=== PATIENT | female | born 1980 | race Caucasian/White ===

== ENCOUNTER 2022-07-23 17:52 | Emergency (ER) | payer OTHER, SELFPAY ==
[2022-07-23 18:01] VITALS: BP 138/89; PULSE 111; RESP 18; TEMP 37.7; O2SAT 96; BMI 21.9
--- NOTE | 2022-07-23 18:14 | CRLHL7_ITS ---
For Patients: As a result of the Century Cures Act, medical imaging exams and procedure reports are released immediately into your electronic medical record. You may view this report before your referring provider. If you have questions, please contact your health care provider. Indication: Abdominal pain, rule out diverticulitis Technique: Volumetric multidetector CT images of the abdomen and pelvis were obtained after the administration of intravenous contrast. 69 cc Isovue 370 low osmolar intravenous contrast Comparison: None available. Findings: The lung bases are clear. The liver is moderately enlarged with minimal hepatic steatosis. There is no focal abnormality. The portal vein is patent. The gallbladder is unremarkable without evidence of radiopaque calculus. There is no significant common biliary ductal dilatation or abrupt cut off. There is moderate splenomegaly. There is mild chronic gastritis change within the decompressed appearing stomach. The pancreas is normal in enhancement without significant atrophy. The adrenal glands are unremarkable. The kidneys demonstrate preserved corticomedullary differentiation without evidence of obstructive uropathy. There is marked focal thickening and pericolonic inflammation of the mid descending: Extending from the splenic flexure. There is additional moderate colonic diverticulosis of the sigmoid colon without additional inflammatory changes. The appendix is not well visualized. There is no significant mesenteric, retroperitoneal, or pelvic sidewall lymph nodes. The aorta is nonaneurysmal. There is no significant atherosclerotic disease appreciated. The solid pelvic viscera are grossly unremarkable. There is moderate fluid seen within the central cul-de-sac and likely an involuting left ovarian follicle. There is no intra-abdominal free air. The anterior abdominal wall is intact without significant hernias. The lumbar vertebral body heights are grossly maintained with mild straightening of the normal lumbar lordosis. There is no significant spondylolisthesis. Impression: Marked focal thickening and pericolonic inflammation of the proximal descending colon extending from the splenic flexure to the mid descending colon consistent with diverticulitis/colitis changes. Moderate hepatosplenomegaly and hepatic steatosis. [id number] chronic gastritis changes. No other acute intra-abdominal abnormality is appreciated. Please note that all CT scans at this facility use dose modulation, iterative reconstruction, and/or weight-based dosing when appropriate to reduce radiation dose to as low as reasonably achievable. Dictated by Terrence Beltran MD @ 07/23/2022 7:09:03 PM (Electronically Signed)
--- NOTE | 2022-07-23 18:17 | ED_ITS ---
HPI - General Adult General Time Seen by Provider: 18:17 Date Seen: 07/23/22 Chief complaint: Abdominal Pain Stated complaint: Abdominal Pain Time Seen by Provider: 07/23/22 18:01 Source: patient Mode of arrival: ambulatory Limitations: no limitations History of Present Illness HPI narrative: Patient is a 42-year-old female who has had a history of diverticulitis, she has had some lower abdominal discomfort on and off for the last 4 days, had a pretty good day yesterday then today had worsening discomfort across her periumbilical and lower abdominal region left greater than right. She denies , had a vasectomy, she has had no diarrhea, no vomiting, no chest pain, no shortness of breath; the patient states that this is fairly similar to the d iverticulitis episode she has had the past. But it has lasted longer and she feels a little fevers today Past medical history: Patient has had ganglion dome of the neck, hypertension, hyperlipidemia, hypothyroidism, migraine headaches. Related Data Home Medications Medication Instructions Recorded Confirmed amlodipine 5 mg tablet mg 07/23/22 levothyroxine 100 mcg tablet mcg 07/23/22 rizatriptan 10 mg disintegrating mg 07/23/22 tablet sertraline 100 mg tablet mg 07/23/22 topiramate 100 mg tablet mg 07/23/22 ubrogepant 100 mg tablet (Ubrelvy) mg 07/23/22 Previous Rx's Medication Instructions Recorded amoxicillin 875 mg-potassium 1 tab PO BID #14 tabs 07/23/22 clavulanate 125 mg tablet Allergies Allergy/AdvReac Type Severity Reaction Status Date / Time meperidine [From Demerol] Allergy Verified 07/23/22 18:01 Review of Systems Status of ROS: Reports: 6 or more systems reviewed and unremarkable except as noted in History and below PFSH PFS Social History Smoking Status: Never smoker How often do you have a drink containing alcohol: monthly or less How often do you have six or more drinks on one occasion: Never AUDIT-C Alcohol total score: 1 Non-prescribed substance use: denies use Exam Narrative: Exam Narrative: Objective: Low-grade temperature O2 sat 96% on room air HEENT is unremarkable no facial asymmetry no scleral icterus Neck is supple Pulses regular Abdomen shows some diffuse tenderness in the periumbilical right and left lower quadrant left greater than right no palpable masses, no rebound Extremities moving all extremities ambulatory Const: Vital Signs, click to edit/add: Vital Signs - 24 hr 07/23/22 18:01 07/23/22 18:45 07/23/22 19:28 Temperature 99.9 F H Pulse Rate [Right Pulse Oximeter] 111 H 108 H 98 Respiratory Rate 18 Blood Pressure [Ri ght Upper Arm] 138/89 155/93 H Pulse Oximetry 96 100 100 Oxygen Delivery Me thod Room Air Room Air Room Air 07/23/22 19:55 Temperature Pulse Rate [Right Pulse Oximeter] 99 Respiratory Rate Blood Pressure [Ri ght Upper Arm] Pulse Oximetry 100 Oxygen Delivery Me thod Room Air Course Vital Signs Vital signs: Initial Vital Signs Temperature 99.9 F H 07/23/22 18:01 Temperature Source Temporal Artery Scan 07/23/22 18:01 Pulse Rate 111 H 07/23/22 18:01 Respiratory Rate 18 07/23/22 18:01 Blood Pressure 138/89 07/23/22 18:01 Blood Pressure Mean 105 07/23/22 18:01 Blood Pressure Position Sitting 07/23/22 18:01 Pulse Oximetry 96 07/23/22 18:01 Oxygen Delivery Method 07/23/22 18:01 Vital Signs Temperature 99.9 F H 07/23/22 18:01 Pulse Rate 111 H 07/23/22 18:01 Respiratory Rate 18 07/23/22 18:01 Blood Pressure 138/89 07/23/22 18:01 Pulse Oximetry 96 07/23/22 18:01 Oxygen Delivery Method 07/23/22 18:01 Temperature 99.9 F H 07/23/22 18:01 Pulse Rate 99 07/23/22 19:55 Respiratory Rate 18 07/23/22 18:01 Blood Pressure 155/93 H 07/23/22 18:45 Pulse Oximetry 100 07/23/22 19:55 Oxygen Delivery Method 07/23/22 19:55 Medical Decision Making MDM Narrative Medical decision making narrative: Patient has a history of diverticulitis, has similar presentation, at this point she is concerned that she may have something worse or that the diverticula radiculitis may not responded simply oral medication, and requests additional workup. I think that is reasonable will get a CT with contrast of her abdomen pelvis, laboratory studies, give her IV fluid, antibiotics depending on her CT results, pain control as necessary. Will do the above-mentioned workup and then depending on those results antibiotics, pain medicine as needed as mention. Patient comfortable with the plan Addendum: [place] [address], she does not really have much pain, can not take narcotics as she gets significant rebound headache. She does have no evidence of perforation but does have extensive diverticulitis on her descending colon. This is what she suspected. Will give her IV Unasyn, have her start Augmentin 875 b.i.d. x7 days, ibuprofen and Tylenol as needed. If she fails or isn't doing well at home she can return to the ED otherwise update her regular doctor next few days for follow-up. Lab Data Labs: Lab Results 07/23/22 07/23/22 07/23/22 Range/Units 18:48 19:04 19:04 WBC 15.07 H (4.50-11.00) K/uL RBC 4.11 (4.00-5.20) m/uL Hgb 10.7 L (12.0-16.0) gm/dL Hct 33.1 (33.0-51.0) % MCV 81 (80-100) fL MCH 26 (26-34) pg MCHC 32 (32-36) gm/dL RDW Coeff of Yao 14.9 (11.5-15.5) % Plt Count 271 (140-440) K/uL Neut % (Auto) 88.8 H (42.0-72.0) % Lymph % (Auto) 6.2 L (20-44) % [place] % (Auto) 4.1 (0.0-11.0) % Eos % (Auto) 0.5 (0.0-7.0) % Baso % (Auto) 0.2 (0.0-3.0) % Neut # (Auto) 13.40 H (1.7-7.0) K/uL Lymph # (Auto) 0.90 (0.90-2.90) K/uL [place] # (Auto) 0.60 (0.00-0.90) K/UL Eos # (Auto) 0.10 (0.00-0.50) K/uL Baso # (Auto) 0.00 (0.00-0.30) K/uL Abs Immat Gran (auto) 0.00 (0.00-0.30) K/uL Imm/Tot Granulo (auto) 0.2 % Sodium 136 (135-149) mmol/L Potassium 3.7 (3.6-5.1) mmol/L Chloride 107 (96-114) mmol/L Carbon Dioxide 19 L (20-32) mmol/L BUN 12 (5-24) mg/dL Creatinine 0.8 (0.5-1.5) mg/dL Estimated Creat Clear 90.90 Estimated GFR 95 ml/min Glucose 109 (60-115) mg/dL Lactate (0.5-1.9) mmol/L Calcium 8.8 (8.4-10.6) mg/dL Total Bilirubin 0.8 (0.1-1.5) mg/dL Direct Bilirubin 0.1 (0.0-0.5) mg/dL AST 14 (12-35) U/L ALT 11 (4-35) U/L Alkaline Phosphatase 47 (40-150) U/L C-Reactive Protein 6.9 H (0.5-1.0) mg/dL Total Protein 7.3 (6.0-8.3) g/dL Albumin 4.3 (3.3-5.0) g/dL Amylase 67 (18-89) U/L Urine Color Yellow (Yellow) Urine Appearance Clear (Clear) Urine pH 7.0 (5.0-8.5) Ur Specific [place] 1.020 (1.000-1.030) Urine Protein 1+ A (Negative) Urine Glucose (UA) Negative (Negative) Urine Ketones 2+ A (Negative) Urine Blood Negative (Negative) Urine Nitrite Negative (Negative) Urine Bilirubin Negative (Negative) Urine Urobilinogen 0.2 (0.2-1.0) Ur Leukocyte Esterase Negative (Negative) Urine RBC 2-5 A (0-2) Urine WBC 2-5 (0-5) Ur Squamous Epith Cells Few (None-Few) Urine Bacteria Few A (None) 07/23/22 Range/Units 19:04 WBC (4.50-11.00) K/uL RBC (4.00-5.20) m/uL Hgb (12.0-16.0) gm/dL Hct (33.0-51.0) % MCV (80-100) fL MCH (26-34) pg MCHC (32-36) gm/dL RDW Coeff of Yao (11.5-15.5) % Plt Count (140-440) K/uL Neut % (Auto) (42.0-72.0) % Lymph % (Auto) (20-44) % [place] % (Auto) (0.0-11.0) % Eos % (Auto) (0.0-7.0) % Baso % (Auto) (0.0-3.0) % Neut # (Auto) (1.7-7.0) K/uL Lymph # (Auto) (0.90-2.90) K/uL [place] # (Auto) (0.00-0.90) K/UL Eos # (Auto) (0.00-0.50) K/uL Baso # (Auto) (0.00-0.30) K/uL Abs Immat Gran (auto) (0.00-0.30) K/uL Imm/Tot Granulo (auto) % Sodium (135-149) mmol/L Potassium (3.6-5.1) mmol/L Chloride (96-114) mmol/L Carbon Dioxide (20-32) mmol/L BUN (5-24) mg/dL Creatinine (0.5-1.5) mg/dL Estimated Creat Clear Estimated GFR ml/min Glucose (60-115) mg/dL Lactate 1.0 (0.5-1.9) mmol/L Calcium (8.4-10.6) mg/dL Total Bilirubin (0.1-1.5) mg/dL Direct Bilirubin (0.0-0.5) mg/dL AST (12-35) U/L ALT (4-35) U/L Alkaline Phosphatase (40-150) U/L C-Reactive Protein (0.5-1.0) mg/dL Total Protein (6.0-8.3) g/dL Albumin (3.3-5.0) g/dL Amylase (18-89) U/L Urine Color (Yellow) Urine Appearance (Clear) Urine pH (5.0-8.5) Ur Specific [place] (1.000-1.030) Urine Protein (Negative) Urine Glucose (UA) (Negative) Urine Ketones (Negative) Urine Blood (Negative) Urine Nitrite (Negative) Urine Bilirubin (Negative) Urine Urobilinogen (0.2-1.0) Ur Leukocyte Esterase (Negative) Urine RBC (0-2) Urine WBC (0-5) Ur Squamous Epith Cells (None-Few) Urine Bacteria (None) Discharge Plan Discharge Clinical Impression: Abdominal pain, Diverticulitis Patient Disposition: Home, Self-Care Condition: Stable Additional Instructions: Rest, fluids, light diet, Augmentin 875 b.i.d. x7 days, ibuprofen or Tylenol as needed, follow-up with primary care in the next couple of days for an update, or return to ED sooner problems or concerns or not improving. Activity Level: Light activity Discharge Diet: Full Liquid Diet Detail: Advance diet as tolerated starting tomorrow Prescriptions: New amoxicillin-pot clavulanate 875-125 mg tablet 1 tab PO BID Qty: 14 0RF No Action sertraline 100 mg tablet Label Comments: TAKE 1 & 1/2 TABLETS BY MOUTH DAILY amlodipine 5 mg tablet Label Comments: TAKE 1 TABLET BY MOUTH EVERY DAY levothyroxine 100 mcg tablet Label Comments: TAKE 1 TABLET BY MOUTH AT LEAST 1 HOUR BEFORE OR 2 HOURS AFTER A MEAL rizatriptan 10 mg tablet,disintegrating Label Comments: TAKE 1 TABLET NEEDED FOR MIGRAINE, REPEAT ONCE IN 2 HRS IF UNRESOLVED. DONT EXCEED 30MG/24HRS topiramate 100 mg tablet Label Comments: TAKE 1 TABLET BY MOUTH EVERY 12 HOURS Ubrelvy 100 mg tablet Stand Alone Forms: MyHealth Info Instructions
[2022-07-23 18:45] VITALS: BP 155/93; PULSE 108; O2SAT 100
[2022-07-23] MEDS: 0.9 % SODIUM CHLORIDE 500 ML 500 ML IV (18:53)
[2022-07-23 19:07] LABS: Appearance Urine Clear (Clear); Bilirubin Urine Negative (Negative); Blood Urine Negative (Negative); Color Urine Yellow (Yellow); Glucose Urine Negative (Negative); Ketones Urine 2+ (Negative); Leukocyte Esterase Urine Negative (Negative); Nitrite Urine Negative (Negative); Protein Urine 1+ (Negative); Urobilinogen Urine 0.2 (0.2-1.0)
[2022-07-23 19:09] LABS: Basophils Percent Auto 0.2 % (0.0-3.0); Eosinophils Percent Auto 0.5 % (0.0-7.0); Hematocrit 33.1 % (33.0-51.0); Hemoglobin* 10.7 gm/dL (12.0-16.0); Immature Granulocytes Pct Auto 0.2 %; Lymphocytes Percent Auto 6.2 % (20-44); Mean Corpuscular HGB Conc 32 gm/dL (32-36); Mean Corpuscular Hemoglobin 26 pg (26-34); Mean Corpuscular Volume 81 fL (80-100); Monocytes Percent Auto 4.1 % (0.0-11.0); Neutrophils Percent Auto 88.8 % (42.0-72.0); Platelet Count* 271 K/uL (140-440); RDW Coefficient of Variation % 14.9 % (11.5-15.5); Red Blood Count 4.11 m/uL (4.00-5.20); White Blood Count* 15.07 K/uL (4.50-11.00)
[2022-07-23 19:13] LABS: Slide Review Reflex No
[2022-07-23] MEDS: AMPICILLIN/SULBACTAM 3 GM in 0.9 % SODIUM CHLORIDE Mini-bag 100 ML IVPB (19:19)
[2022-07-23 19:21] LABS: Bacteria Urine Few; Squamous Epithelial Cell Urine Few (None-Few)
[2022-07-23] MEDS: IBUPROFEN 400 MG TABLET 800 MG PO (19:22)
[2022-07-23 19:28] VITALS: PULSE 98; O2SAT 100
[2022-07-23 19:48] LABS: Albumin* 4.3 g/dL (3.3-5.0); Chloride* 107 mmol/L (96-114)
[2022-07-23 19:49] LABS: Potassium* 3.7 mmol/L (3.6-5.1); Sodium* 136 mmol/L (135-149)
[2022-07-23 19:51] LABS: Amylase* 67 U/L (18-89); Creatinine* 0.8 mg/dL (0.5-1.5); Estimated Glomerular Filt Rate 95 ml/min
[2022-07-23 19:52] LABS: Alanine Aminotransferase* 11 U/L (4-35); Alkaline Phosphatase* 47 U/L (40-150); Aspartate Amino Transferase* 14 U/L (12-35); Bilirubin Direct* 0.1 mg/dL (0.0-0.5); Bilirubin Total* 0.8 mg/dL (0.1-1.5); Blood Urea Nitrogen* 12 mg/dL (5-24); Calcium* 8.8 mg/dL (8.4-10.6); Carbon Dioxide* 19 mmol/L (20-32); Glucose* 109 mg/dL (60-115); Total Protein* 7.3 g/dL (6.0-8.3)
[2022-07-23 19:54] LABS: C Reactive Protein* 6.9 mg/dL (0.5-1.0)
[2022-07-23 19:55] VITALS: PULSE 99; O2SAT 100
== END 2022-07-23 19:56 | disposition home or self-care (01) ==
PROVIDERS: Emergency Provider Family Medicine
DX: R10.9 Unspecified abdominal pain (principal); K57.92 Diverticulitis of intestine, part unspecified, without perforation or abscess without bleeding
CPT/HCPCS: 36415; 74177; 80048; 80076; 81001; 82150; 83605; 85025; 86140; 87086; 96365; 99284; A9270; J0295; J7120; Q9967

== ENCOUNTER 2022-08-15 12:14 | Outpatient (REF) | payer OTHER, SELFPAY | END 2022-08-15 12:15 | disposition home or self-care (01) | LOC: NPINS 12:14 | DX: E03.9 Hypothyroidism, unspecified (principal) | CPT/HCPCS: 84443 ==

== ENCOUNTER 2022-11-26 08:30 | Outpatient (CLI) | payer OTHER, SELFPAY | END 2022-11-26 08:31 | disposition home or self-care (01) | LOC: NFLDREF 11-27 09:14 | PROVIDERS: Visit Provider Family Medicine | DX: E03.9 Hypothyroidism, unspecified (principal); E78.5 Hyperlipidemia, unspecified; D50.9 Iron deficiency anemia, unspecified; I10 Essential (primary) hypertension | CPT/HCPCS: 80053; 80061; 82728; 84443 ==

== ENCOUNTER 2023-01-29 09:15 | Outpatient (CLI) | payer OTHER, SELFPAY | END 2023-01-29 09:16 | disposition home or self-care (01) | LOC: NFLDREF 01-30 00:48 | PROVIDERS: PCP Family Medicine; Visit Provider Family Medicine | DX: D50.9 Iron deficiency anemia, unspecified (principal) | CPT/HCPCS: 82728; 83540; 83550 ==

== ENCOUNTER 2023-02-21 13:24 | Outpatient (CLI) | payer OTHER, SELFPAY ==
--- NOTE | 2023-02-21 13:20 | CRLHL7_ITS ---
For Patients: As a result of the Century Cures Act, medical imaging exams and procedure reports are released immediately into your electronic medical record. You may view this report before your referring provider. If you have questions, please contact your health care provider. BILATERAL SCREENING MAMMOGRAM WITH COMPUTER-AIDED DETECTION AND TOMOSYNTHESIS TECHNIQUE: CC and MLO views were obtained. These mammographic images have been obtained using full-field digital technique. These mammographic images were interpreted with the benefit of computer-aided detection. Breast Tomosynthesis was used in this interpretation. COMPARISON FILM: Baseline. FINDINGS: The breasts are heterogeneously dense, which may obscure small masses IMPRESSION: There is no radiographic evidence for malignancy. ASSESSMENT: BI-RADS Category 1: Negative RECOMMENDATION: Routine screening mammogram in 1 year. A lay language report of this examination will be provided to the patient. Teddy Goff M.D. Diagnostic Radiologist [email or web address] Transcribed: 3:03 p.monse jama/Dictated by: Teddy Goff MD @ 02/24/2023 8:35:00 AM (Electronically Signed)
== END 2023-02-21 13:25 | disposition home or self-care (01) ==
LOC: MAMMO 13:25
PROVIDERS: PCP Family Medicine; Visit Provider Family Medicine
DX: Z12.31 Encounter for screening mammogram for malignant neoplasm of breast (principal); R92.2 Inconclusive mammogram
CPT/HCPCS: 77063; 77067

== ENCOUNTER 2023-08-07 07:15 | Outpatient (CLI) | payer OTHER, SELFPAY ==
--- NOTE | 2023-08-07 09:00 | CRLHL7_ITS ---
For Patients: As a result of the Century Cures Act, medical imaging exams and procedure reports are released immediately into your electronic medical record. You may view this report before your referring provider. If you have questions, please contact your health care provider. INDICATION: Upper quadrant pain TECHNIQUE: Axial images were obtained from the diaphragm to the pubic symphysis. Reformats were obtained in the coronal and sagittal plane. IV Contrast: 90 cc Isovue 370 Oral Contrast: None COMPARISON: None. FINDINGS: Lower chest: No acute consolidation. Bilateral breast implants. Liver: Unremarkable. Normal in size and attenuation. No masses. Gallbladder and bile ducts: Unremarkable. No stones or inflammation. No biliary dilatation. Spleen: Mild splenomegaly without focal lesion. Pancreas: Unremarkable. No mass or inflammation. Adrenal glands: Unremarkable. No nodules. Kidneys: Unremarkable. No masses, stones, or hydronephrosis. Vasculature: Unremarkable. GI tract: The stomach is unremarkable no dilated loops of large or small intestine with extensive colonic diverticulosis. Appendix normal. Pelvis: Right ovarian corpus luteum measuring 1.8 centimeters. Bones: Unremarkable for age. IMPRESSION: 1. Extensive colonic diverticulosis without CT evidence of diverticulitis. 2. Mild splenomegaly. No focal lesions seen, differential diagnosis would include viral syndromes and metabolic disorders. Please note that all CT scans at this facility use dose modulation, iterative reconstruction, and/or weight-based dosing when appropriate to reduce radiation dose to as low as reasonably achievable. Dictated by Marlon Pascual MD @ 08/07/2023 11:07:39 AM (Electronically Signed)
== END 2023-08-07 07:16 | disposition home or self-care (01) ==
PROVIDERS: PCP Family Medicine; Visit Provider Family Medicine
DX: R10.12 Left upper quadrant pain (principal); K57.30 Diverticulosis of large intestine without perforation or abscess without bleeding; R16.1 Splenomegaly, not elsewhere classified; Z87.19 Personal history of other diseases of the digestive system; D50.9 Iron deficiency anemia, unspecified
CPT/HCPCS: 74177; 80053; Q9967

== ENCOUNTER 2023-09-18 13:50 | Outpatient (REF) | payer OTHER, SELFPAY ==
--- OUTSIDE RECORDS SUMMARY | 2023-09-18 14:08 | XMS_ITS | Encounter Summary ---
Author Name Unknown [facility] Address [address] [place] [address] Care Team Providers Care Clock Repair Technician Name Role Phone No Primary/Referring, Phy Primary Care Provider Unavailable Encounter Details Date Type Department Care Team Description 03/01/2015 Scanned History External to Transferred Record, Provider [facility] Social History Tobacco Use Types Packs/Day Years Used Date Smoking Tobacco: Never Assessed Sex and Gender Information Value Date Recorded Sex Assigned at Not on file Gender Identity Not on file Sexual Orientation Not on file documented as of this encounter Plan of Treatment Upcoming Encounters Date Type Department Care Team Description 03/12/2024 8:50 AM CDT [facility] [address] [facility]. [place], [place] [phone] Gabriele Gaitan MD [address] [place] [address] documented as of this encounter Visit Diagnoses Not on filedocumented in this encounter Care Teams Clock Repair Technician Relationship Specialty Start Date End Date No Primary/Referring, Phy PCP - General 03/01/15 documented as of this encounter
--- OUTSIDE RECORDS SUMMARY | 2023-09-18 14:08 | XMS_ITS | Encounter Summary ---
Author Name Unknown Organization [facility] Address [address] [place] [address] Care Team Providers Care Pump Servicer Name Role Phone No Primary/Referring, Phy Primary Care Provider Unavailable Encounter Details Date Type Department Care Team Description 11/22/2022 Orders Only [facility] DEPARTMENT Provider, [place] [address] Social History Tobacco Use Types Packs/Day Years Used Date Smoking Tobacco: Never Smokeless Tobacco: Never Alcohol Use Standard Drinks/Week Comments Yes 0 (1 standard drink = 0.6 oz pur e alcohol) 2/week at most Sex and Gender Information Value Date Recorded Sex Assigned at Not on file Gender Identity Not on file Sexual Orientation Not on file documented as of this encounter Plan of Treatment Upcoming Encounters Date Type Department Care Team Description 03/12/2024 8:50 AM CDT [facility] [address] [facility] [address] [place] [address]. [place], [place] [phone] Gabriele Gaitan MD [address] [place] [phone] documented as of this encounter Procedures Procedure Name Priority Date/Time Associated Diagnosis Comments LABORATORY REPORT 11/22/2022 documented in this encounter Results * LABORATORY REPORT (11/22/2022) Interface Provider DUMMY/OTHER/AR documented in this encounter Visit Diagnoses Not on filedocumented in this encounter Care Teams Pump Servicer Relationship Specialty Start Date End Date No Primary/Referring, Phy PCP - General 03/01/15 documented as of this encounter
--- OUTSIDE RECORDS SUMMARY | 2023-09-18 14:08 | XMS_ITS ---
Author Name Unknown Organization [facility] Address [address] [place] [address] Care Team Providers Care Contract Driver Name Role Phone Unavailable Unavailable Unavailable Surgery Details Not on file Complications Check Surgery Details section. Procedure Estimated Blood Loss Check Surgery Details section. Procedure Findings Check Surgery Details section. Procedure Specimens Taken Check Surgery Details section.
--- OUTSIDE RECORDS SUMMARY | 2023-09-18 14:08 | XMS_ITS | Clinical Summary ---
Author Name Unknown Organization [facility] Address [address] [place] [address] Care Team Providers Care Flux Plant Operator Name Role Phone Elsewhere, Pcp Primary Care Provider Unavailabl e Source Comments Patient records contain information from all sites at [facility]. For routine questions regarding patient records, call [phone] during business hours, M-F 8:00 AM - 5:00 PM Central Time. Record requests for emergency care only can be directed to [phone] at any time.[facility] Allergies Active Allergy Reactions Criticality Noted Date Comments Meperidine Itching,Other (see comments) 015 itching Medications Medication Sig Dispensed Refills Start Date End Date Status sertraline (ZOLOFT) 100 mg tablet Take 150 mg by mouth at bedtime. 0 08/19/2018 Active amLODIPine (NORVASC) 5 mg tablet Take 5 mg by mouth at bedtime. 0 05/10/2020 Active multivitamin tablet Take 1 tablet by mouth daily. 0 Active levothyroxine (SYNTHROID, LEVOTHROID) 100 mcg tablet Take 112 mcg by mouth daily. TAKE AT LEAST 1 HOUR BEFORE OR 2 HOURS AFTER A MEAL 0 05/07/2021 Active topiramate (TOPAMAX) 100 mg tablet TAKE 1 TABLET BY MOUTH EVERY 12 HOURS 180 tablet 1 10/23/2021 Active Additional Information Patient not taking.Reported on 06/06/2023 Ubrelvy 100 mg tablet tablet TAKE 1 TAB NEEDED FOR MIGRAINE. MAY REPEAT ONCE AFTER 2HR IF UNRESOLVED-DONT EXCEEDED 200MG/24 HR 10 tablet 11 10/08/2022 Active propranoloL (INDERAL LA) 60 mg 24 hr capsuleIndications:M igraine Headache Take 1 capsule (60 mg total) by mouth daily. 30 capsule 11 04/25/2023 4 Active buPROPion XL (WELLBUTRIN XL) 150 mg 24 hr tablet Take 150 mg by mouth daily. 0 03/12/2023 Active rizatriptan HEARING THERAPIST (MAXALT-HEARING THERAPIST) 10 mg disintegrating tablet Dissolve 1 tablet (10 mg total) in the mouth as needed for migraine. May repeat dose once in 2 hours if migraine is unresolved. Do not exceed 30 mg in 24 hours. 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 Takes sertraline. 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 Echo in 06/2016 Immunizations Name Administration Dates Next Due SARS-COV-2 (COVID-19) - PFIZ ER (Discontinued)(12 years or older) 07/10/2021 influenza vaccine quad (FLUZ ONE/FLUARIX) (6 months and older)(PF) 07/10/2021,08/01/2020 Family History Medical History Relation Name Comments Sleep apnea Brother 1 Naseem Lul Migraines Brother 2 Avinash Lul Alcohol abuse Father Gage Mccarty Coronary artery disease Father Gage Mccarty Prostate cancer Maternal Grandfather Abdias Vang Lung cancer Maternal Grandmother Rosa Godwin Lung cancer Mother Kallie Rebolledo Migraines Mother's Sister Ayde Relation Name Status Comments Brother 1 Naseem Mccarty Brother 2 Avinash Mccarty Father Gage Mccarty Maternal Grandfather Abdias Vang Maternal Grandmother Rosa Godwin Mother Kallie Rebolledo Mother's Sister Ayde Social History Tobacco Use Types Packs/Day Years Used Date Smoking Tobacco: Never Smokeless Tobacco: Never Tobacco Cessation:Counseling Given: Not Answered Alcohol Use Standard Drinks/Week Comments Yes 1 (1 standard drink = 0.6 oz pur e alcohol) Occasional only Humiliation, Afraid, Rape, and Kick questionnair e Answer Date Recorded Within the last year, have y ou been afraid of your partner or ex-partner? No 12/31/2022 Within the last year, have y ou been humiliated or emotionally abused in other ways by your partner or ex-partner? No Within the last year, have y ou been kicked, hit, slapped, or otherwise physically hurt by your partner or ex-partner? No 12/31/2022 Within the last year, have y ou been raped or forced to have any kind of sexual activity by your partner or ex-partner? No 12/31/2022 Social Connection and Isolat ion Panel [NHANES] Answer Date Recorded In a typical week, how many times do you talk on the phone with family, friends, or neighbors? More than three times a week 12/31/2022 How often do you get togethe r with friends or relatives? More than three times a week 12/31/2022 How often do you attend chur ch or restorationist services? More than 4 times per year 12/31/2022 Do you belong to any clubs o r organizations such as advent groups, unions, fraternal or athletic groups, or school groups? Yes 12/31/2022 How often do you attend meet ings of the clubs or organizations you belong to? More than 4 times per year 12/31/2022 Are you , , di vorced, , never , or living with a partner? 12/31/2022 AUDIT-C Answer Date Recorded Q1: How often do you have a drink containing alc ohol? 2-4 times a month 12/31/2022 Q2: How many drinks containi ng alcohol do you have on a typical day when you are drinking? 1 or 2 12/31/2022 Q3: How often do you have si x or more drinks on one occasion? Never 12/31/2022 Overall Financial Resource Strain (CARDIA) Answe r Date Recorded How hard is it for you to pa y for the very basics like food, housing, medical care, and heating? Not hard at all 12/31/2022 PHQ-2 Answer Date Recorded PHQ-2 Score 0 10/24/2021 [facility] - Occupational Stress Questionnaire Answer Date Recorded Do you feel stress - tense, restless, nervous, or anxious, or unable to sleep at night because your mind is troubled all the time - these days? Only a little 12/31/2022 Exercise Vital Sign Answer Date Recorde d On average, how many days pe r week do you engage in moderate to strenuous exercise (like a brisk walk)? 2 days 12/31/2022 On average, how many minutes do you engage in exercise at this level? 20 min 12/31/2022 Hunger Vital Sign Answer Date Recorded Within the past 12 months, y ou worried that your food would run out before you got the money to buy more. Never true 01/01/20 23 Within the past 12 months, t he food you bought just didn't last and you didn't have money to get more. Never true 12/31/2022 PRAPARE - Transportation Answer Date Re corded In the past 12 months, has l ack of transportation kept you from medical appointments or from getting medications? No 12/16 In the past 12 months, has l ack of transportation kept you from meetings, work, or from getting things needed for daily living? No 12/31/2022 Housing Stability Vital Sign Answer Warner e Recorded In the last 12 months, was t here a time when you were not able to pay the mortgage or rent on time? No 12/31/2022 In the last 12 months, how many places have you lived? 2 12/31/2022 In the last 12 months, was t here a time when you did not have a steady place to sleep or slept in a fci (including now)? No 12/31/2022 Depression Answer Date Recor ded PHQ-9 Total Score (max 27) 2 10/24 Nutrition Answer Date Recorded Nutrition: EVOO Fat Source Yes 12/31 On average, how many serving s of fruits and vegetables do you eat per day (serving size is equal to 1 cup or approximately the size of a tennis ball)? 2-3 12/31/2022 Dental Answer Date Recorded Dental: Regular Dentist Yes 10/05/19 Employment Answer Date Recorded Employment status Unemployed/not in [employer] paid workforce and NOT seeking employment 12/31/2022 Education Answer Date Recorded What is the highest level of school you have completed or the highest degree you have received? Bachelor's degree (e.g., BA, AB, BS) 06/08/2020 Sex and Gender Information Value Date Recorded Sex Assigned at Female 04/24/2021 2:13 PM CDT Gender Identity Female 07/12/2020 9:37 AM BAR GAUGER AND LUBRICATOR TENDER Sexual Orientation Straight 07/12/2020 9: 37 AM BAR GAUGER AND LUBRICATOR TENDER Last Filed Vital Signs Vital Sign Reading Time Taken Comments Blood Pressure 118/67 06/27/2022 11:10 AM BAR GAUGER AND LUBRICATOR TENDER Pulse 72 06/27/2022 11:10 AM BAR GAUGER AND LUBRICATOR TENDER Temperature 36 ??C (96.8 ??F) 06/11/2023 3:36 PM CDT Respiratory Rate 15 06/27/2022 11:1 0 AM BAR GAUGER AND LUBRICATOR TENDER Oxygen Saturation 100% 06/27/2022 11: 10 AM BAR GAUGER AND LUBRICATOR TENDER Inhaled Oxygen Concentration - - Weight 82.4 kg (181 lb 10.5 oz) 06/11/2023 3:36 PM CDT Height 170.5 cm (5' 7.13) 06/11/2023 3:36 PM CD T Body Mass Index 28.35 06/11/2023 3:36 PM CDT Plan of Treatment Upcoming Encounters Date Type Department Care Team (Late st Contact Info) Description 10/13/2023 1:00 PM BAR GAUGER AND LUBRICATOR TENDER Office Visit Department of Medical Genetics in [place], [place] [address] [place] [address] Minerva Irving M.D. [address] [place] [address] Health Maintenance Due Date Last Done Comments Cervical Cancer Screening 1982 HIV Screening 1982 Hepatitis B Vaccines (1 of 3 - 3-dose series) 1982 Hepatitis C Screening 1982 Lipid (Cholesterol) Screening 1982 Mammogram 1982 Thyroid Stimulating Hormone (TSH) test for thyroid function 1982 Pneumococcal vaccine (0-64 years) (1 of 2 - PCV) 1988 Zoster Vaccines (1 of 2) 2001 Office Visit for Blood Pressure Check / Re-check 10/24/2022 10/24/2021 COVID-19 Vaccine ( season) 2023 07/10/2021, 07/10/2021, 12/12/2020, Additional history exists Depression Screening (Annual PHQ-2) 08/18/2023 DTaP,Tdap,and Td Vaccines (3 - Td or Tdap) 08/09/2029 08/09/2019, 09/10/2012 Influenza Vaccine Completed 05/22/2023, , 08/01/2020, Additional history exists HPV Vaccines Aged Out No longer eligi ble based on patient's age to complete this topic Medical Devices Implanted Type Area Wood Heel Back Liner Device Identifier Shelf Expiration Date Model / Serial / Lot Hylrnds Rstyl 1ml - [id number] Implanted:Qt y: 1 on 08/03/2020 by Isidro Olmedo M.D. at [facility] Bone or Tissue Right: Vocal Cord [employer] Ana 11/15/2022 [id number] / / [id number] Description:1ml injection Hylrnds Rstyl 1ml - [id number] Implanted:Qt y: 1 on 11/29/2020 by Isidro Olmedo M.D. at [facility] Bone or Tissue Right: Vocal Cord [employer] Ana 04/17/2023 [id number] / / [id number] Breast Implant Breast Implant Bilatera l: Breast Description:04/18/2023 Prtcl Emblztn Pva Cnt 500-653 - [id number] Implanted:Qt y: 1 on 07/31/2020 by Chato Pettit M.D., Ph.D. at [facility] Embolization Coil [employer] 05/15/2023 [id number] / / [id number] Clp Apr Lgc Intnl [facility] 9.75 - [id number] Implanted:Qt y: 1 on 08/01/2020 by Jaime Serna M.D. at [facility] Hardware e.g. pins/screws/adriana s Left: Neck Ethicon [id number] / / Grft Nrv Neuragen Gd 1.5x3 - [id number] Implanted:Qt y: 1 on 08/01/2020 by Jaime Serna M.D. 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 If available, original interpretation can be found on the Media Tab in Chart Review, in Document Viewer, or as an image in QREADS. If a re-interpretation or overread is required please follow defined workflow. ?? Provider Not In System IMG CT PROCEDURES IIMS NA from Last 3 Months Advance Directives For more information, please contact: [phone] Latest Code Status on File Code Status Date Activated Date Inactivated Comments Full Code 06/27/2022 10:21 AM 06/27/2022 1:34 PM Question Answer Comments Full Code: Not Discussed Due to: Patient not available Code Status History Code Status Date Activated Date Inactivated Comments Full Code 12/01/2020 11:22 AM 12/01/2020 8:24 PM Question Answer Comments Full Code: Discussed Full Code 08/01/2020 4:42 PM 08/04/2020 5:32 PM Question Answer Comments Full Code: Not Discussed Due to: Patient not available Full Code 07/31/2020 6:41 PM 08/01/2020 4:42 PM Question Answer Comments Full Code: Not Discussed Due to: Patient not available Care Teams Flux Plant Operator Relationship Specialty Start Date End Date Elsewhere, Pcp PCP - General Family Medicine 05/03/21
--- OUTSIDE RECORDS SUMMARY | 2023-09-18 14:08 | XMS_ITS | Encounter Summary ---
Author Name Unknown Organization [facility] Address [address] [place] [address] Care Team Providers Care Dietary Assistant Name Role Phone No Primary/Referring, Phy Primary Care Provider Unavailable Encounter Details Date Type Department Care Team Description 10/23/2018 Consent for Procedure/Treatment Regions Department INFORMED CONSENT FOR SLEEP/AUDIO/VIDEO Social History Tobacco Use Types Packs/Day Years [...] Telemedicine Specialty Center [facility] [address] [facility]. [place], [place] [id number] Gabriele Gaitan MD [address] [place], [place] [phone] documented as of this encounter Visit Diagnoses Not on filedocumented in this encounter Care Teams Dietary Assistant Relationship Specialty Start Date End Date No Primary/Referring, Adiay PCP - General 03/01/15 documented as of this encounter
--- OUTSIDE RECORDS SUMMARY | 2023-09-18 14:08 | XMS_ITS | Referral Summary ---
Author Name Unknown Organization [facility] Address [address] [place] [address] Care Team Providers Care Rod Mill Operator Name Role Phone Elsewhere, Pcp Primary Care Provider Unavailabl e Source Comments Patient records contain information from all sites at [facility]. For routine questions regarding patient records, call [phone] during business hours, M-F 8:00 AM - 5:00 PM Central Time. Record requests for emergency care only can be directed to [phone] at any time.[facility] Allergies Active Allergy Reactions Criticality Noted [...] by mouth daily. 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 Takes sertraline. 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 Echo in 06/2016 Immunizations Name Administration Dates Next Due SARS-COV-2 (COVID-19) - PFIZ ER (Discontinued)(12 years or older) 07/10/2021 influenza vaccine quad (FLUZ ONE/FLUARIX) (6 months and older)(PF) 07/10/2021,08/01/2020 Social History Tobacco Use Types Packs/Day Years [...] 12/31/2022 How often do you attend chur or scientology services? More than 4 times per year 12/31/2022 Do you belong to any clubs o r organizations such as yazdanism groups, unions, fraternal or athletic groups, or [...] Answer Date Recorded PHQ-2 Score 0 10/24/2021 [facility] - Occupational Stress Questionnaire Answer Date Recorded [...] place to sleep or slept in a jail (including now)? No 12/31/2022 Depression Answer Date [...] Date Recorded Dental: Regular Dentist Yes 10/05/19 21 Employment Answer Date Recorded Employment status Unemployed/not in th e paid workforce and NOT seeking employment 12/31/2022 Education Answer Date Recorded What is the highest level of school you have completed or the highest degree you have received? Bachelor's degree (e.g., BA, AB, BS) 06/08/2020 Sex and Gender Information Value Date Recorded Sex Assigned at Female 04/24/2021 2:13 PM CDT Gender Identity Female 07/12/2020 9:37 AM PACKER INSPECTOR Sexual Orientation Straight 07/12/2020 9: 37 AM PACKER INSPECTOR Last Filed Vital Signs Vital Sign Reading Time Taken Comments Blood Pressure 118/67 06/27/2022 11:10 AM PACKER INSPECTOR Pulse 72 06/27/2022 11:10 AM PACKER INSPECTOR Temperature 36 ??C (96.8 ??F) 06/11/2023 3:36 PM CDT Respiratory Rate 15 06/27/2022 11:1 0 AM PACKER INSPECTOR Oxygen Saturation 100% 06/27/2022 11: 10 AM PACKER INSPECTOR Inhaled Oxygen Concentration - - Weight 82.4 kg (181 lb 10.5 oz) 06/11/2023 3:36 PM CDT Height 170.5 cm (5' 7.13) 06/11/2023 3:36 PM CD T Body Mass Index 28.35 06/11/2023 3:36 PM CDT Plan of Treatment Upcoming Encounters Date Type Department Care Team (Late st Contact Info) Description 10/13/2023 1:00 PM PACKER INSPECTOR Office Visit Department of Medical Genetics in [place], [place] [address] [place] [address] Minerva Irving M.D. [address] [place] [address] Medical Devices Implanted Type Area Boat Washer Device Identifier Shelf Expiration Date Model / Serial / Lot Hylrnds Rstyl 1ml - [id number] Implanted:Qt y: 1 on 08/03/2020 by Isidro Olmedo M.D. at [facility] Bone or Tissue Right: Vocal Cord [employer] Ana 11/15/2022 [id number] / / [id number] Description:1ml injection Hylrnds Rstyl 1ml - [id number] Implanted:Qt y: 1 on 11/29/2020 by Isidro Olmedo M.D. at [facility] Bone or Tissue Right: Vocal Cord [employer] Ana 04/17/2023 [id number] / / [id number] Breast Implant Breast Implant Bilatera l: Breast Description:04/18/2023 Prtcl Emblztn Pva Cnt 500-710 - [id number] Implanted:Qt y: 1 on 07/31/2020 by Chato Pettit M.D., Ph.D. at [facility] Embolization Coil [employer] 05/15/2023 [id number] / / [id number] Clp Apr Lgc Intnl [facility] 9.75 - [id number] Implanted:Qt y: 1 on 08/01/2020 by Jaime Serna M.D. at [facility] Hardware e.g. pins/screws/adraina s Left: Neck Ethicon [id number] / / Grft Nrv Neuragen Gd 1.5x3 - [id number] Implanted:Qt y: 1 on 08/01/2020 by Jaime Serna M.D. 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 Procedures Procedure Name Priority Date/Time Associated Diagnosis Comments OUTSIDE CT BODY Routine 08/07/2023 8:40 AM PACKER INSPECTOR from Last 3 Months Results * CT ABDOMEN PELVIS W CON-Outside CT Body (08/07/2023 8:40 AM PACKER INSPECTOR) Narrative IIMS - 08/08/2023 12:39 PM PACKER INSPECTOR This order has been created and auto-finalized [...] Advance Directives For more information, please contact: [phone] Latest Code Status on File Code Status [...] Due to: Patient not available Care Teams Rod Mill Operator Relationship Specialty Start Date End Date Elsewhere, Pcp PCP - General Family Medicine 05/03/21
--- OUTSIDE RECORDS SUMMARY | 2023-09-18 14:08 | XMS_ITS | Encounter Summary ---
Author Name Unknown Organization [facility] Address [address] [place] [address] Care Team Providers Care Diagnostics Tech Name Role Phone No Primary/Referring, Phy Primary Care Provider Unavailable Reason for Visit * Reason Comments Refill levothyroxine (SYNTH ROID) 112 MCG tablet [Pharmacy Med Name: LEVOTHYROXINE 112 MCG TABLET] Encounter Details Date Type Department Care Team Description 09/01/2023 Refill Specialty Center [address] [place] [address]. [place], [place] [phone] Gabriele Gaitan MD [address] [place] [phone] Refill (levothyroxine (SYNTHROID) 112 MCG tablet [Pharmacy Med Name: LEVOTHYROXINE 112 MCG TABLET]) Social History Tobacco Use Types Packs/Day Years Used Date Smoking Tobacco: Never Smokeless Tobacco: Never Alcohol Use Standard Drinks/Week Comments Yes 0 (1 standard drink = 0.6 oz pur e alcohol) 2/week at most Sex and Gender Information Value Date Recorded Sex Assigned at Not on file Gender Identity Not on file Sexual Orientation Not on file documented as of this encounter Nursing Notes * Radha Burgess - 09/03/2023 10:42 AM CST Further Assistance Needed on Refill from Honey Producer Patient is due for Qualifying Visit and lab(s). - TSH placed per standing order. Medication is refused. Patient is due for an Office/Video Visit and labs in the next 30 days. Call Patient and document using .MILTON. After attempting to schedule patient: If appointment is scheduled within 60 days: Please route to: Primary Care: Refill shipping processor Specialty Care: Refill shipping processor If unable to schedule appointment: Please route to Gabriele Gaitan MD Requested Prescriptions Refused Prescriptions Disp Refills levothyroxine (SYNTHROID) 112 MCG tablet [Pharmacy Med Name: LEVOTHYROXINE 112 MCG TABLET] 90 Tablet 0 Sig: TAKE 1 TABLET (112 MCG) BY MOUTH DAILY. TAKE AT LEAST ONE HOUR BEFORE OR TWO HOURS AFTER MEAL. Refused By: RADHA BURGESS Reason for Refusal: Patient Needs An Appointment Radha Elena RN 09/03/2023 10:42 AM FACTURING GROUP LEADER documented in this encounter Plan of Treatment Upcoming Encounters Date Type Department Care Team Description 03/12/2024 8:50 AM CDT Telemedicine Specialty Center [address] [place] [address]. [place], [place] [phone] Gabriele Gaitan MD [address] [place] [id number] Scheduled Orders Name Type Priority Associated Diagnoses Orde r Schedule TSH Lab Routine Hypothyroidism (acquired) ([facility]) Expected: 09/03/2023, Expires: 03/03/2024 documented as of this encounter Visit Diagnoses Diagnosis Hypothyroidism (acquired) ([facility])- Primary Unspecified hypothyroidism documented in this encounter Care Teams Diagnostics Tech Relationship Specialty Start Date End Date No Primary/Referring, Phy PCP - General 03/01/15 documented as of this encounter
--- OUTSIDE RECORDS SUMMARY | 2023-09-18 14:08 | XMS_ITS | Clinical Summary ---
Author Name Unknown Organization [facility] Address [address] [place] [address] Care Team Providers Care Inpatient Services Rn Name Role Phone No Primary/Referring, Adiay Primary Care Provider Unavailable Source Comments You are receiving this document as you are listed as the primary care provider,follow-up provider, or the patient has been referred to you for consultation.This is in compliance with the Medicare and[facility] EHR Incentive Program,which states Providers who transition their patient to another setting of careor provider of care or refers their patient to another provider of care shouldprovide summary care record for each transition of care or referral. [facility] Allerg[facility] Active Allergy Reactions Criticality Noted Date Comments Meperidine Other, see comments 04/11/2015 itching Medications Medication Sig Dispensed Refills Start Date End Date Status sertraline (ZOLOFT) 100 MG tablet TK 1 AND 1/2 TS PO D 3 08/19/2018 Active amLODIPine (NORVASC) 5 MG tablet TK 1 T PO D 0 07/11/2020 Active topiramate (TOPAMAX) 25 MG tablet 125 mg daily 90 Tablet 11 12/22/2020 Active famotidine (PEPCID) 40 MG tablet Take 40 mg by mouth daily. 0 10/19/2020 Active rizatriptan (MAXALT-CONTRACTS INTERN) 10 MG disintegrating tablet Take 10 mg by mouth at bedtime as needed. 0 10/20/2020 Active Multiple Vitamin (MULTI-VITAMIN) tablet Take 1 Tablet by mouth daily. 0 Active levothyroxine (SYNTHROID) 112 MCG tablet Take 1 Tablet (112 mcg) by mouth daily. Take at least one hour before or two hours after meal. 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 [place] [address] Gabriele Gaitan MD Chief Comp: Pre-visit Planning 09/01/2023 Refill Specialty [place] [id number] [facility] [address] [place] [address]. [place] [address] Gabriele Gaitan MD Refill (levothyroxine (SYNTHROID) 112 MCG tablet [Pharmacy Med Name: LEVOTHYROXINE 112 MCG TABLET]) from Last 3 Months Family History Medical History Relation Name Comments Coronary Artery Disease Father 50 Cancer, Lung Mother 62 No Known Problems Brother No Known Problems Daughter No Known Problems Maternal Grandmother No Known Problems Sibling No Known Problems Sister No Known Problems Son ADHD Negative Family History AICD Negative Family History ALS Negative Family History Abdominal Aortic Aneurysm Negative Family History Adopted Negative Family History Adrenal Insufficiency Negative Family History Alcohol Abuse Negative Family History Allergies Negative Family History Allergy (Severe) Negative Family History Alzheimer's Negative Family History Amblyopia/Strabismus Negative Family History Anemia Negative Family History Anesthesia Reaction Negative Family History Angioedema Negative Family History Anxiety Negative Family History Arrhythmia Negative Family History Arthritis Negative Family History Asthma Negative Family History Ataxia Negative Family History Atopy Negative Family History Atrial Fib Negative Family History Autism Negative Family History BRCA 1/2 Negative Family History Bipolar Disorder Negative Family History Defects Negative Family History Bleeding Disorder Negative Family History Blindness Negative Family History Blood Disease Negative Family History Brain Aneurysm Negative Family History Broken Bones Negative Family History Bronchitis Negative Family History COPD Negative Family History Cancer Negative Family History Cancer, Bladder Negative Family History Cancer, Bone Negative Family History Cancer, Brain Negative Family History Cancer, Breast Negative Family History Cancer, Cervical Negative Family History Cancer, Colon Negative Family History Cancer, Endometrial Negative Family History Cancer, Esophageal Negative Family History Cancer, Head/Neck Negative Family History Cancer, Kidney Negative Family History Cancer, Liver Negative Family History Cancer, Melanoma Negative Family History Cancer, Other Negative Family History Cancer, Ovary Negative Family History Cancer, Pancreatic Negative Family History Cancer, Prostate Negative Family History Cancer, Rectal Negative Family History Cancer, Skin Negative Family History Cancer, Stomach Negative Family History Cancer, Thyroid Negative Family History Cancer, Unknown Negative Family History Cancer, Uterine Negative Family History Cancer, Vaginal Negative Family History Cardiovascular Disease Negative Family History Cataract Negative Family History Celiac Disease Negative Family History Cerebrovascular Disease Negative Family History Chdhd Hrt Surg Negative Family History Chdhd Resp Dis Negative Family History Chorea Negative Family History Chronic Back Pain Negative Family History Chronic Infections Negative Family History Cirrhosis Negative Family History Clotting Disorder Negative Family History Collagen Disease Negative Family History Colon Polyps Negative Family History Color Deficiency Negative Family History Corneal Dystrophy Negative Family History Coronary Valve Surgery Negative Family History Cache Syndrome Negative Family History Crohn's Disease Negative Family History Cystic Fibrosis Negative Family History DVT/PE Negative Family History Deafness Negative Family History Dementia Negative Family History Depression Negative Family History Developmental Disorder Negative Family History Diabetes Negative Family History Diabetes, Type I Negative Family History Diabetes, Type II Negative Family History Diethylstilbestrol Exposure Negative Family History Dislocations Negative Family History Domestic Violence Negative Family History Down Syndrome Negative Family History Drug Abuse Negative Family History Early Negative Family History Eclampsia Negative Family History Eczema Negative Family History Emphysema Negative Family History Enuresis Negative Family History Fainting Negative Family History Fibromyalgia Negative Family History Fragile X Negative Family History GERD Negative Family History GI Negative Family History Gauchers Disease Negative Family History Genetic Disorder Negative Family History Genitourinary Negative Family History Glasses prior to K5 Negative Family History Glaucoma Negative Family History Good Health Negative Family History Gout Negative Family History Hearing Loss Negative Family History Heart Negative Family History Heart Attack Negative Family History Heart Defect Negative Family History Heart Disease Negative Family History Heart Failure Negative Family History Heart Murmur Negative Family History Heart Surgery Negative Family History Heart disorder Negative Family History Hemochromatosis Negative Family History High Cholesterol Negative Family History Huntingtons Negative Family History Hypercalcemia Negative Family History Hyperglycemia Negative Family History Hyperlipidemia Negative Family History Hypertension Negative Family History Hypogonadism Negative Family History Hypotension Negative Family History ICD Negative Family History Immunodeficiency Negative Family History Infertility Negative Family History Inflammatory Bowel Disease Negative Family History Irritable Bowel Syndrome Negative Family History Kidney Disorder Negative Family History Kidney/Bladder Disease Negative Family History Learning Disability Negative Family History Leukemia Negative Family History Li-Fraumeni Syndrome Negative Family History Lipids Negative Family History Liver Disease Negative Family History Lung Disease Negative Family History Lung disorder Negative Family History Lupus Negative Family History Lymphoma Negative Family History Macular Degeneration Negative Family History Malig Hyperten Negative Family History Malig Hypertherm Negative Family History Marfan Syndrome Negative Family History Memory Loss Negative Family History Mental Disorder Negative Family History Mental Retardation Negative Family History Mesothelioma Negative Family History Migraines Negative Family History Miscarriages / Stillbirths Negative Family History Mitral Valve Prolapse Negative Family History Multiple Sclerosis Negative Family History Myastenia Gravis Negative Family History Myocardial Infarction Negative Family History Neck Pain Negative Family History Negative Family History Negative Family History Nervous Breakdown Negative Family History Neural Tube Defect Negative Family History Neurofibromatosis Negative Family History Neuropathy Negative Family History Non-contributary Negative Family History OCD Negative Family History Obesity Negative Family History Obstructive Sleep Apnea Negative Family History Optic Nerve Disease Negative Family History Osteoarthritis Negative Family History Osteoporosis Negative Family History Other Negative Family History PKU Negative Family History PTCA/STENT Negative Family History Pacemaker Negative Family History Paranoid Behavior Negative Family History Parkinsonism Negative Family History Parkinsons Negative Family History Patching Negative Family History Peripheral Vascular Negative Family History Physicial Abuse Negative Family History Premature Negative Family History Labor Negative Family History Prolapse/Pelvic Parts Falling Down Negative Family His tory Pseudochol. Deficiency Negative Family History Psoriasis Negative Family History Psychiatry Negative Family History Pulmonary Negative Family History Pulmonary Embolism Negative Family History Rashes/Skin Problems Negative Family History Renal Failure Negative Family History Retinal Detachment Negative Family History Retinal Disorder Negative Family History Retinitis Pigmentosa Negative Family History Retinoblastoma Negative Family History Rheum Arthritis Negative Family History Rheumatic Fever Negative Family History Rheumatologic Disease Negative Family History SIDS Negative Family History Schizophrenia Negative Family History Scoliosis Negative Family History Seizure Disorder Negative Family History Severe Sprains Negative Family History Sexual Abuse Negative Family History Sickle Cell Anemia Negative Family History Sickle Cell Trait Negative Family History Spont Abortions Negative Family History Stillborn Negative Family History Stroke Negative Family History Sudden Negative Family History Suicide Negative Family History Thromboembolic Disease Negative Family History Thyroid Disorder Negative Family History Tic disorder Negative Family History Toxic Exposure Negative Family History Tremor Negative Family History Tuberculosis Negative Family History Ulcerative Colitis Negative Family History Unknown Negative Family History Unknown Neurological Disease Negative Family History Urinary Incontinence Negative Family History Urolithiasis Negative Family History Urticaria Negative Family History Valve Dz Negative Family History Varicose Veins Negative Family History Vertigo Negative Family History Vesicoureteral Reflux Negative Family History Vision Loss Negative Family History Vitiligo Negative Family History Keenan's Disease Negative Family History Relation Name Status Comments Father Mother Brother Daughter Maternal Grandmother Sibling Sister Son Social History Tobacco Use Types Packs/Day Years Used Date Smoking Tobacco: Never Smokeless Tobacco: Never Alcohol Use Standard Drinks/Week Comments Yes 0 (1 standard drink = 0.6 oz pur e alcohol) 2/week at most Sex and Gender Information Value Date Recorded Sex Assigned at Not on file Gender Identity Not on file Sexual Orientation Not on file Last Filed Vital Signs Vital Sign Reading Time Taken Comments Blood Pressure 138/88 12/07/2018 8:47 AM CDT Pulse 60 12/07/2018 8:47 AM CDT Temperature 35.6 ??C (96.1 ??F) 12/07/2018 8:47 AM CD T Respiratory Rate 12 12/07/2018 8:47 AM CDT Oxygen Saturation 99% 12/07/2018 8:47 AM CDT Inhaled Oxygen Concentration - - Weight 63.5 kg (140 lb) 06/01/2021 1:51 PM CDT Height 170.2 cm (5' 7) 07/20/2020 2:10 PM BOARDING ROOM FIXER Body Mass Index 21.93 07/20/2020 2:10 PM BOARDING ROOM FIXER Plan of Treatment Upcoming Encounters Date Type Department Care Team Description 03/12/2024 8:50 AM CDT [facility] [address] [place] [address]. [place], [place] [id number] Gabriele Gaitan MD [address] [place] [id number] Health Maintenance Due Date Last Done Comments Cervical Cancer Screening Due 1982 Hep C Screening (Preventive Services) 1982 HepB (1) 1982 COVID-19 Vaccine (#1) 1982 HIV Screening (Preventive Services) 1998 Adult Preventive Visit 2000 DTaP/Tdap/Td (3 - Tdap) 08/09/2029 08/09/2019, 09/10 Zoster/Shingles (1 of 2) 2032 Influenza Completed 05/22/2023, 112 10/2020, 08/01/2020, Additional history exists HPV Vaccine Aged Out No longer eligi ble based on patient's age to complete this topic HepA Aged Out No longer eligi ble based on patient's age to complete this topic Hib Aged Out No longer eligi ble based on patient's age to complete this topic IPV (Polio) Aged Out No longer eligi ble based on patient's age to complete this topic MCV4 Aged Out No longer eligi ble based on patient's age to complete this topic Pneumococcal Aged Out No longer eligi ble based on patient's age to complete this topic Care Teams Inpatient Services Rn Relationship Specialty Start Date End Date No Primary/Referring, Tree PCP - General 03/01/15
--- OUTSIDE RECORDS SUMMARY | 2023-09-18 14:08 | XMS_ITS | Encounter Summary ---
Author Name Unknown Organization [facility] Address [address] [place] [id number] Care Team Providers Care Optical Fabrication Technician Name Role Phone Elsewhere, Pcp Primary Care Provider Unavailabl e Reason for Visit * Reason Comments Med Refill Encounter Details Date Type Department Care Team ([facility] st Contact Info) Description 06/09/2023 Refill Department of Neurology in [place], [place] [address] [place] [phone] Becky Carrera, MARK, C.N.P., M.S.N. [address] [place] [phone] Med Refill Social History Tobacco Use Types Packs/Day Years Used Date Smoking Tobacco: Never Smokeless Tobacco: Never Alcohol Use Standard Drinks/Week Comments Yes 1 [...] often do you attend chur ch or mormonism services? More than 4 times per year 12/31/2022 Do you belong to any clubs o r organizations such as sabianism groups, unions, fraternal or athletic groups, or [...] Answer Date Recorded PHQ-2 Score 0 10/24/2021 [facility] - Occupational [...] place to sleep or slept in a fpc (including now)? No 12/31/2022 Depression Answer Date [...] Answer Date Recorded Employment status Unemployed/not in e paid workforce and NOT seeking employment 12/31/2022 Education Answer Date Recorded What is the highest level of school you have completed or the highest degree you have received? Bachelor's degree (e.g., BA, AB, BS) 06/08/2020 Sex and Gender Information Value Date Recorded Sex Assigned at Female 04/24/2021 2:13 PM CDT Gender Identity Female 07/12/2020 9:37 AM FRAME BANDER Sexual Orientation Straight 07/12/2020 9: 37 AM FRAME BANDER documented as of this encounter Plan of Treatment Upcoming Encounters Date Type Department Care Team (Late st Contact Info) Description 10/13/2023 1:00 PM FRAME BANDER Office Visit Department of Medical Genetics in [place], [place] [address] [place] [address] Minerva Irving M.D. [address] [place] [address] documented as of this encounter Visit Diagnoses Not on filedocumented in this encounter Additional Health Concerns Assessment Noted Time PHQ-9 Depression Total Score: 2 10/25/19 22 2:30 PM FRAME BANDER documented as of this encounter Care Teams Optical Fabrication Technician Relationship Specialty Start Date End Date Elsewhere, Pcp PCP - General Family Medicine 05/03/21 documented as of this encounter
--- OUTSIDE RECORDS SUMMARY | 2023-09-18 14:08 | XMS_ITS | Encounter Summary ---
Author Name Unknown Organization [facility] Address [address] [place] [address] Care Team Providers Care Hop Strainer Name Role Phone Elsewhere, Pcp Primary Care Provider Unavailabl e Reason for Referral * MRI/CAT/PET Scan (Routine) - Closed Specialty Diagnoses / Procedures Referred By Contac t Referred To Contact Radiology Diagnoses Paraganglioma (HCC) Procedures MR Neck Soft Tissue without and with IV Contrast Gage Aguilar M.D. [address] [place] [address] [facility] Referral ID Status Reason Start Date Expiration Date Visits Re quested Visits Authorized [id number] Closed 1 1 Reason for Visit * MRI/CAT/PET Scan (Routine) - Closed Specialty Diagnoses / Procedures Referred By Contac t Referred To Contact Radiology Diagnoses Paraganglioma (HCC) Procedures MR Neck Soft Tissue without and with IV Contrast Gage Aguilar M.D. [address] [place] [address] [facility] Referral ID Status Reason Start Date Expiration Date Visits Re quested Visits Authorized [id number] Closed 1 1 Encounter Details Date Type Department Care Team (Latest Contact Info) Description 06/11/2023 10:12 AM CDT - 06/11/2023 11:59 PM CDT Hospital Encounter Department of Radiology, [facility] in [place], [place] [address] [place] [phone] Gage Aguilar M.D. [address] [place] [address] Paraganglioma (HCC) Discharge Disposition: Home or Self Care Social History Tobacco Use Types Packs/Day Years [...] How often do you attend chur or roman catholic services? More than 4 times per year 12/31/2022 Do you belong to any clubs o r organizations such as christian groups, unions, fraternal or athletic groups, or [...] Answer Date Recorded PHQ-2 Score 0 10/24/2021 [facility] - Occupational Stress Questionnaire Answer Date Recorded [...] place to sleep or slept in a skilled nursing (including now)? No 12/31/2022 Depression Answer Date [...] CDT Gender Identity Female 07/12/2020 9:37 AM BIODIESEL ENGINE SPECIALIST Sexual Orientation Straight 07/12/2020 9: 37 AM BIODIESEL ENGINE SPECIALIST documented as of this encounter Medications at Time of Discharge Medication Sig Dispensed Refills Start Date End Date amLODIPine (NORVASC) 5 mg tablet Take 5 mg by mouth at bedtime. 0 05/10/2020 buPROPion XL (WELLBUTRIN XL) 150 mg 24 hr tablet Take 150 mg by mouth daily. 0 03/12/2023 levothyroxine (SYNTHROID, LEVOTHROID) 100 mcg tablet Take 112 mcg by mouth daily. TAKE AT LEAST 1 HOUR BEFORE OR 2 HOURS AFTER A MEAL 0 05/07/2021 multivitamin tablet Take 1 tablet by mouth daily. 0 propranoloL (INDERAL LA) 60 mg 24 hr capsuleIndications:Migra ine Headache Take 1 capsule (60 mg total) by mouth daily. 30 capsule 11 04/25/2023 04/24/2024 rizatriptan AUTOMOBILE INSURANCE CLAIM EXAMINER (MAXALT-AUTOMOBILE INSURANCE CLAIM EXAMINER) 10 mg disintegrating tablet Dissolve 1 tablet (10 mg total) in the mouth as needed for migraine. May repeat dose once in 2 hours if migraine is unresolved. Do not exceed 30 mg in 24 hours. 12 tablet 0 06/11/2023 sertraline (ZOLOFT) 100 mg tablet Take 150 mg by mouth at bedtime. 0 08/19/2018 topiramate (TOPAMAX) 100 mg tablet TAKE 1 TABLET BY MOUTH EVERY 12 HOURS 180 tablet 1 10/23/2021 Ubrelvy 100 mg tablet tablet TAKE 1 TAB NEEDED FOR MIGRAINE. MAY REPEAT ONCE AFTER 2HR IF UNRESOLVED-DONT EXCEEDED 200MG/24 HR 10 tablet 11 10/08/2022 documented as of this encounter Plan of Treatment Upcoming Encounters Date Type Department Care Team (Late st Contact Info) Description 10/13/2023 1:00 PM BIODIESEL ENGINE SPECIALIST Office Visit Department of Medical Genetics in [place], [place] [address] [place] [address] Minerva Irvign M.D. [address] [place] [address] documented as of this encounter Procedures Procedure Name Priority Date/Time Associated Diagnosis Comments MR NECK SOFT TISSUE WITHOUT AND WITH IV CONTRAST RAD - Routine (most inpatients and all outpatients) 06/11/2023 11:10 AM CDT Paraganglioma (HCC) documented in this encounter Results * MR Neck Soft Tissue without and with IV Contrast (06/11/2023 11:10 AM CDT) Anatomical Region Laterality Modality Neck, Neuroradiology RST LOS , Neuroradiology ARZ LOS, Neuroradiology FLA LOS N/A Magnetic Resonance 06/11/2023 11:1 1 AM CDT Impressions 06/11/2023 11:36 AM CDT 1. Stable residual enhancing tumor at the right jugular foramen and extending into the right hypoglossal canal. 2. No evidence of recurrent or residual paraganglioma at the right carotid bifurcation. 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 No significant change in the residual enhancing T2 hyperintense tumor in the high right retrostyloid parapharyngeal space extending into the right jugular foramen and right hypoglossal canal since 05/27/2022. No new enhancing tumor in the neck. No new adenopathy. Normal variant persistent right trigeminal artery. Otherwise normal appearance of the visualized intracranial contents. Mild ethmoid air cell and right maxillary sinus mucosal thickening. Procedure Note Radha Penn M.D. - 06/11/2023 EXAM: MR NECK SOFT TISSUE WITHOUT AND WITH IV CONTRAST COMPARISON: Brain MR 05/27/2022 FINDINGS: Postoperative change of right neck resection of carotid bodyparaganglioma and subtotal resection of right glomus vagale paraganglioma with subsequent gamma kniferadiosurgery for residual tumor at the skull base. No significant change in the residual enhancing T2 hyperintense tumor inthe high right retrostyloid parapharyngeal space extending into the right jugular foramen and righthypoglossal canal since 05/27/2022. No new enhancing tumor in the neck. No new adenopathy. Normal variant persistent right trigeminal artery. Otherwise normalappearance of the visualized intracranial contents. Mild ethmoid air cell and right maxillary sinusmucosal thickening. IMPRESSION: 1. Stable residual enhancing tumor at the right jugular foramen andextending into the right hypoglossal canal. 2. No evidence of recurrent or residual paraganglioma at the right carotidbifurcation. Gage Aguilar M.D. [facility] MRI PROCEDURES documented in this encounter Visit Diagnoses Diagnosis Paraganglioma (HCC) documented in this encounter Administered Medications Inactive Administered Medications - up to 3 most recent administrations Medication Order MAR Action Action Date Dose Rate Site gadobutrol injection 0.01-30 mL (GADAVIST) 0.01-30 mL, intravenous, Once in imaging, contrast, Starting on Fri06/11/23 at 1023, For 1 dose, Imaging Protocol Orders, Dose per Radiant Medication Guidelines Intrathecal doses greater than 0.25 mL not recommended. Given 06/11/2023 11:02 AM CDT 7 mL documented in this encounter Additional Health Concerns Assessment Noted Time PHQ-9 Depression Total Score: 2 10/25/19 22 2:30 PM BIODIESEL ENGINE SPECIALIST documented as of this encounter Care Teams Hop Strainer Relationship Specialty Start Date End Date Elsewhere, Pcp PCP - General Family Medicine 05/03/21 documented as of this encounter
--- OUTSIDE RECORDS SUMMARY | 2023-09-18 14:08 | XMS_ITS | Encounter Summary ---
Author Name Unknown Organization [facility] Address [address] [place] [address] Care Team Providers Care Compensation And Benefits Manager Name Role Phone Elsewhere, Pcp Primary Care Provider Unavailabl e Encounter Details Date Type Department Care Team (Latest Contact Info) Description 06/06/2023 1:15 PM CDT Clinical Communication Virtual Review in [place], [place] [address] [place], [place] [phone] Social History Tobacco Use Types Packs/Day Years [...] How often do you attend chur or buddhist services? More than 4 times per year 12/31/2022 Do you belong to any clubs o r organizations such as episcopalian groups, unions, fraternal or athletic groups, or [...] Answer Date Recorded PHQ-2 Score 0 10/24/2021 [facility] of Occupat ional Health - Occupational Stress [...] place to sleep or slept in a fdc (including now)? No 12/31/2022 Depression Answer Date [...] CDT Gender Identity Female 07/12/2020 9:37 AM BRUSH STAINER Sexual Orientation Straight 07/12/2020 9: 37 AM BRUSH STAINER documented as of this encounter Plan of Treatment Upcoming Encounters Date Type Department Care Team (Late st Contact Info) Description 10/13/2023 1:00 PM BRUSH STAINER Office Visit Department of Medical Genetics in [place], [place] [address] [place] [phone] Minerva Irving M.D. 200 [place] [address] documented as of this encounter Visit Diagnoses Not on filedocumented in this encounter Additional Health Concerns Assessment Noted Time PHQ-9 Depression Total Score: 2 10/25/19 22 2:30 PM BRUSH STAINER documented as of this encounter Care Teams Compensation And Benefits Manager Relationship Specialty Start Date End Date Elsewhere, Pcp PCP - General Family Medicine 05/03/21 documented as of this encounter
--- OUTSIDE RECORDS SUMMARY | 2023-09-18 14:08 | XMS_ITS | Encounter Summary ---
Author Name Unknown Organization [facility] Address [address] [place] [address] Care Team Providers Care Ultrasound Spec Name Role Phone Elsewhere, Pcp Primary Care Provider Unavailabl e Reason for Referral * Outpatient (Routine) - Authorized Specialty Diagnoses / Procedures Referred By Contac t Referred To Contact Neurological Surgery Nilam Urena APRN, C.N.P., D.N.P. [address] [place] [phone] [facility] Referral ID Status Reason Start Date Expiration Date V isits Requested Visits Authorized [id number] Authorized 06/23/2023 06/22/2026 1 1 S TIE CUTTER * MRI/CAT/PET Scan (Routine) - Authorized Specialty Diagnoses / Procedures Referred By Contac t Referred To Contact Radiology Diagnoses Paraganglioma (HCC) Procedures MR Brain without and with IV Contrast Nilam Urena APRN, C.N.P., D.N.P. [address] [place] [phone] [facility] Referral ID Status Reason Start Date Expiration Date V isits Requested Visits Authorized [id number] Authorized 06/23/2023 06/22/2024 1 1 S TIE CUTTER Reason for Visit * Outpatient (Routine) - Closed Specialty Diagnoses / Procedures Referred By Leisa henderson Referred To Contact Neurological Surgery Link, Gage Treviño M.D. [address] [place] [address] [facility] Referral ID Status Reason Start Date Expiration Date Visits Re quested Visits Authorized [id number] Closed 06/04/2022 06/03/2025 1 1 Encounter Details Date Type Department Care Team (Latest Contact Info) Description 06/11/2023 3:30 PM CDT Office Visit Department of Neurologic Surgery in [place], [place] [address] [place] [phone] Nilam Urena, MARK, C.N.P., D.N.P. [address] [place] [phone] Paraganglioma (HCC) (Primary Dx) Social History Tobacco Use Types Packs/Day Years [...] How often do you attend chur or yazdanism services? More than 4 times per year 12/31/2022 Do you belong to any clubs o r organizations such as voodoo groups, unions, fraternal or athletic groups, or [...] Answer Date Recorded PHQ-2 Score 0 10/24/2021 [facility] Occupat ional [facility] - Occupational Stress Questionnaire Answer Date [...] place to sleep or slept in a intermediate (including now)? No 12/31/2022 Depression Answer Date [...] CDT Gender Identity Female 07/12/2020 9:37 AM CROSS TIE CUTTER Sexual Orientation Straight 07/12/2020 9: 37 AM CROSS TIE CUTTER documented as of this encounter Last Filed Vital Signs Vital Sign Reading Time Taken Comments Blood Pressure - - Pulse - - Temperature 36 ??C (96.8 ??F) 06/11/2023 3:36 PM CDT Respiratory Rate - - Oxygen Saturation - - Inhaled Oxygen Concentration - - Weight 82.4 kg (181 lb 10.5 oz) 06/11/2023 3:36 PM CDT Height 170.5 cm (5' 7.13) 06/11/2023 3:36 PM CD T Body Mass Index 28.35 06/11/2023 3:36 PM CDT documented in this encounter Progress Notes * Nilam Urena APRN, C.N.P., Dajuan.N.P. - 06/11/2023 3:30 PM CDT Images from the original note were not included. 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 Lisa Bains is a 42 y.o. 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 Ultimately, the patient underwent a right neck dissection with Dr. Aguilar and Dr. Serna on August 01, 2020. The right carotid body tumor was removed in its entirety and the great majority of the right glomus vagale tumor was removed; however, there was some tumor left extending into the jugular foramen. Subsequently, on May 03, 2021 she underwent gamma knife radiosurgery for treatment of the residual tumor. A total volume of 6.9 cc was treated with a marginal dose of 15 Gy, maximum dose 30 Gy. The patient did well after the procedure and had a good recovery. 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 She is currently off of the Topamax and finds that there is a bit more intensity with the first bite symptoms. Her dysphonia has improved with a right true vocal cord fat injection in June 2022. She has increased stamina with her voice and better projection. In fact, she feels that her voice has returned to approximately 90% of its prior baseline. She continues to have some difficulty with dysphagia and finds that she can feel the food getting stuck in her throat. She specifically has difficulty with thin liquids especially when distracted. She denies any frequent pneumonias or unintentional weight loss.. S he continues to have intermittent headaches which have not changed significantly. She specifically tends to have clusters of headaches when the seasons change in notes that last week she had particularly intense headaches. She currently takes propranolol. OBJECTIVE General: Patient is alert, pleasant, with calm and interactive affect Neuro: Mental: Patient is alert and oriented. Language comprehension and repetition is normal. Cranial nerves examined as follows: Face is symmetric with equal strength, HB grade I. Facial sensation intact in all 3 branches of the trigeminal nerve. Pupils equal and round. EOM's are intact without nystagmus. Tongue protrudes midline. Mild right tongue atrophy. Shoulder shrug strong bilaterally Gait: Normal with intact arm swing bilaterally and heel to toe strike noted. DIAGNOSTICS I have reviewed the laboratory, imaging, and other diagnostic studies. Specifically, the MRI dated June 11, 2023 and compared to prior imaging studies on file as indicated below: Imaging from the date of treatment with gamma knife radiosurgery, May 03, 2021, was compared with imaging dated May 2022 and May 2023 (left to right) and shows the treated residual tumor at the right jugular foramen appears stable in size and appearance. There is no evidence of adverse radiation effect in the adjacent brain. Additionally, there is no evidence of recurrent paraganglioma at the right carotid bifurcation. ASSESSMENT / PLAN It was a pleasure to meet with for follow-up of right glomus vagale s/p treatment of residual tumor at the right jugular foramen. MRI scan from today shows the treated residual tumor to remain stable in size and appearance. Recommend follow-up in 1 years' time with a new MRI of the head. If imaging appears stable at that time we will consider lengthening the imaging interval to ever other year. was encouraged to contact us in the interim with any questions or concerns she may have. I reviewed the history, physical exam, imaging and plan in detail with Dr. Aguilar and he is in agreement with the content and plan outlined above. S TIE CUTTER documented in this encounter Plan of Treatment Upcoming Encounters Date Type Department Care Team (Late st Contact Info) Description 10/13/2023 1:00 PM CROSS TIE CUTTER Office Visit Department of Medical Genetics in [place], [place] [address] [place] [address] Minerva Irving M.D. [address] [place] [phone] Scheduled Orders Name Type Priority Associated Diagnoses Orde r Schedule MR Brain without and with IV Contrast Imaging RAD - Routine (most inpatients and all outpatients) Paraganglioma (HCC) Expected: 06/11/2024 (Approximate), Expires: 06/11/2026 Scheduled Referrals Name Type Priority Associated Diagnoses Order Schedule Neurological Surgery office visit (clinic) Outpatient Referral Routine Expect ed: 06/11/2024 (Approximate), Expires: 09/23/2024 documented as of this encounter Visit Diagnoses Diagnosis Paraganglioma (HCC)- Primary documented in this encounter Additional Health Concerns Assessment Noted Time PHQ-9 Depression Total Score: 2 10/25/19 22 2:30 PM CROSS TIE CUTTER documented as of this encounter Care Teams Ultrasound Spec Relationship Specialty Start Date End Date Elsewhere, Pcp PCP - General Family Medicine 05/03/21 documented as of this encounter
--- OUTSIDE RECORDS SUMMARY | 2023-09-18 14:08 | XMS_ITS | Encounter Summary ---
Author Name Unknown Organization [facility] Address [address] [place] [address] Care Team Providers Care Political Science Instructor Name Role Phone No Primary/Referring, Phy Primary Care Provider Unavailable Reason for Visit * Reason Comments Pre-visit Planning Entered automaticall y based on patient selection in [facility]. Encounter Details Date Type Department Care Team Description 09/10/2023 9:20 AM TANDEM MILL STICKER E-Visit Specialty [facility] [address] [facility] [address] [place] [address]. [place] [address] Gabriele Gaitan MD [address] [place] [phone] Chief Comp: Pre-visit Planning Social History Tobacco Use Types Packs/Day Years [...] of this encounter Nursing Notes * Radha Mcclellan - 09/10/2023 10:14 AM CST TSH last completed/08/15/22. Last seen:08/2022 Follow up: 02/2024 OPS sent- Due for TSH for further refills. Radha Elena RN 09/10/2023 10:15 AM EM MILL STICKER documented in this encounter Plan of Treatment Upcoming Encounters Date Type Department Care Team Description 03/12/2024 8:50 AM CDT Telemedicine Specialty Center [address] [facility] 401 [facility] [place] [address] Gabriele Gaitan MD [address] [place], [place] [phone] documented as of this encounter Visit Diagnoses Not on filedocumented in this encounter Care Teams Political Science Instructor Relationship Specialty Start Date End Date No Primary/Referring, Phy PCP - General 03/01/15 documented as of this encounter
--- OUTSIDE RECORDS SUMMARY | 2023-09-18 14:09 | XMS_ITS | Encounter Summary ---
Author Name Unknown Organization [facility] Address [address] [place] [address] Care Team Providers Care Fuels Sales Representative Name Role Phone Elsewhere, Pcp Primary Care Provider Unavailabl e Reason for Visit * Reason Comments Med Refill Encounter Details Date Type Department Care Team ([facility] st Contact Info) Description 01/15/2023 Refill Department of Neurology in [place], [place] [address] [place] [phone] Trever Gregory M.D. [address] [place] [address] Med Refill Social History Tobacco Use Types [...] often do you attend chur ch or latter-day services? More than 4 times per year 12/31/2022 Do you belong to any clubs o r organizations such as jehovah's witness groups, unions, fraternal or athletic groups, or [...] Answer Date Recorded PHQ-2 Score 0 10/24/2021 [facility] - Occupational Stress Questionnaire Answer Date [...] place to sleep or slept in a senior care (including now)? No 12/31/2022 Depression Answer Date [...] CDT Gender Identity Female 07/12/2020 9:37 AM HOSPITAL ADMINISTRATIVE ASSISTANT Sexual Orientation Straight 07/12/2020 9: 37 AM HOSPITAL ADMINISTRATIVE ASSISTANT documented as of this encounter Miscellaneous Notes * Telephone Encounter - Delilah Pickard R.N. - 01/16/2023 10:19 AM CDT SUBJECTIVE CHIEF COMPLAINT / REASON FOR CALL Med Refill PLAN The following information was provided: RN called Mrs. Bains after we received a refill request from her pharmacy for Propranolol 10 mg. Mrs. Bains stated she is currently taking 30 mg Propranolol, or 3 pills daily and is still on amlodipine 5 mg as her blood pressure has not dipped and has not been too high or too low. She has been checking this regularly. Mrs. Bains has been able to taper off topamax. Information/Education: patient/caller able to teach back The following references were used: nursing clinical judgement documented in this encounter Plan of Treatment Upcoming Encounters Date Type Department Care Team (Late st Contact Info) Description 10/13/2023 1:00 PM HOSPITAL ADMINISTRATIVE ASSISTANT Office Visit Department of Medical Genetics in [place], [place] [address] [place] [address] Minerva Irving M.D. [address] [place] [address] documented as of this encounter Visit Diagnoses Not on filedocumented in this encounter Additional Health Concerns Assessment Noted Time PHQ-9 Depression Total Score: 2 10/25/19 22 2:30 PM HOSPITAL ADMINISTRATIVE ASSISTANT documented as of this encounter Care Teams Fuels Sales Representative Relationship Specialty Start Date End Date Elsewhere, Pcp PCP - General Family Medicine 05/03/21 documented as of this encounter
--- OUTSIDE RECORDS SUMMARY | 2023-09-18 14:09 | XMS_ITS | Encounter Summary ---
Author Name Unknown Organization [facility] Address [address] [place] [address] Care Team Providers Care Office Cashier Name Role Phone Elsewhere, Pcp Primary Care Provider Unavailabl e Reason for Visit * Reason Comments Med Refill Encounter Details Date Type Department Care Team ([facility] st Contact Info) Description 04/18/2023 Refill Department of Neurology in [place], [place] [address] [place] [phone] Trever Gregory M.D. [address] [place] [address] Med Refill Social History Tobacco Use Types [...] often do you attend chur ch or jehovah's witness services? More than 4 times per year 12/31/2022 Do you belong to any clubs o r organizations such as zoroastrianism groups, unions, fraternal or athletic groups, or [...] Answer Date Recorded PHQ-2 Score 0 10/24/2021 [facility] - Occupational Stress Questionnaire Answer [...] CDT Gender Identity Female 07/12/2020 9:37 AM PROFESSIONAL NURSING TUTOR Sexual Orientation Straight 07/12/2020 9: 37 AM PROFESSIONAL NURSING TUTOR documented as of this encounter Miscellaneous Notes * Telephone Encounter - Leah Ann V. RIsabel - 04/18/2023 12:52 PM CDT Not needed; automated request * Telephone Encounter - Leah Ann R.N. - 04/18/2023 12:45 PM CDT SUBJECTIVE CHIEF COMPLAINT / REASON FOR CALL Propranolol PLAN The following information was provided: Contacted Mrs. Bains who stated she does not need a refill of propranolol yet. She is currently taking 60 mg daily. She is also still taking amlodipine and reports that her blood pressure has been okay and her primary care provider said it was okay if she was on both medications. She asked if she is supposed to increase her propranolol more and I advised her that 60 mg is the goal dose so she should continue at her current dose. When she does need a refill, she would prefer it if the prescription is for 60 mg tablets instead of 10 mg tablets. I informed her that we would do that. Information/Education: patient/caller able to teach back The following references were used: nursing clinical judgement documented in this encounter Plan of Treatment Upcoming Encounters Date Type Department Care Team (Late st Contact Info) Description 10/13/2023 1:00 PM PROFESSIONAL NURSING TUTOR Office Visit Department of Medical Genetics in [place], [place] [address] [place] [address] Minerva Irving M.D. [address] [place] [address] documented as of this encounter Visit Diagnoses Not on filedocumented in this encounter Additional Health Concerns Assessment Noted Time PHQ-9 Depression Total Score: 2 10/25/19 22 2:30 PM PROFESSIONAL NURSING TUTOR documented as of this encounter Care Teams Office Cashier Relationship Specialty Start Date End Date Elsewhere, Pcp PCP - General Family Medicine 05/03/21 documented as of this encounter
--- OUTSIDE RECORDS SUMMARY | 2023-09-18 14:09 | XMS_ITS | Encounter Summary ---
Author Name Unknown Organization [facility] Address [address] [place] [address] Care Team Providers Care Oil Furnace Installer Name Role Phone Elsewhere, Pcp Primary Care Provider Unavailabl e Reason for Visit * Reason Comments Med Refill Encounter Details Date Type Department Care Team ([facility] st Contact Info) Description 11/29/2022 Refill Department of Neurology in [place], [place] [address] [place] [phone] Trever Gregory M.D. [address] [place] [address] Med Refill Social History Tobacco Use Types Packs/Day Years Used Date Smoking Tobacco: Never Smokeless Tobacco: Never Alcohol Use Standard Drinks/Week Comments Yes 1 (1 standard drink = 0.6 oz pur e alcohol) Occasional only Humiliation, Afraid, Rape, and Kick questionnair e Answer Date Recorded Within the last year, have y ou been afraid of your partner or ex-partner? No 05/30/2022 Within the last year, have y ou been humiliated or emotionally abused in other ways by your partner or ex-partner? No Within the last year, have y ou been kicked, hit, slapped, or otherwise physically hurt by your partner or ex-partner? No 05/30/2022 Within the last year, have y ou been raped or forced to have any kind of sexual activity by your partner or ex-partner? No 05/30/2022 Social Connection and Isolat ion Panel [NHANES] Answer Date Recorded In a typical week, how many times do you talk on the phone with family, friends, or neighbors? Twice a week 05/30/2022 How often do you get togethe r with friends or relatives? Once a week 05/30/2022 How often do you attend chur ch or buddhist services? 1 to 4 times per year 05/30/2022 Do you belong to any clubs o r organizations such as christianity groups, unions, fraternal or athletic groups, or school groups? Yes 05/30/2022 How often do you attend meet ings of the clubs or organizations you belong to? More than 4 times per year 05/30/2022 Are you , , di vorced, , never , or living with a partner? 05/30/2022 AUDIT-C Answer Date Recorded Q1: How often do you have a drink containing alc ohol? 2-3 times a week 05/30/2022 Q2: How many drinks containi ng alcohol do you have on a typical day when you are drinking? 1 or 2 05/30/2022 Q3: How often do you have si x or more drinks on one occasion? Never 05/30/2022 Overall Financial Resource Strain (CARDIA) Answe r Date Recorded How hard is it for you to pa y for the very basics like food, housing, medical care, and heating? Not hard at all 05/30/2022 PHQ-2 Answer Date Recorded PHQ-2 Score 0 10/24/2021 [facility] Occupat ional Health - Occupational Stress Questionnaire Answer Date Recorded Do you feel stress - tense, restless, nervous, or anxious, or unable to sleep at night because your mind is troubled all the time - these days? To some extent 05/30/2022 Exercise Vital Sign Answer Date Recorde d On average, how many days pe r week do you engage in moderate to strenuous exercise (like a brisk walk)? 1 day 05/30/2022 On average, how many minutes do you engage in exercise at this level? 20 min 05/30/2022 Hunger Vital Sign Answer Date Recorded Within the past 12 months, y ou worried that your food would run out before you got the money to buy more. Never true 05/30/20 22 Within the past 12 months, t he food you bought just didn't last and you didn't have money to get more. Never true 05/30/2022 PRAPARE - Transportation Answer Date Re corded In the past 12 months, has l ack of transportation kept you from medical appointments or from getting medications? No 05/18 In the past 12 months, has l ack of transportation kept you from meetings, work, or from getting things needed for daily living? No 05/30/2022 Housing Stability Vital Sign Answer Warner e Recorded In the last 12 months, was t here a time when you were not able to pay the mortgage or rent on time? No 05/30/2022 In the last 12 months, how many places have you lived? 1 05/30/2022 In the last 12 months, was t here a time when you did not have a steady place to sleep or slept in a usp (including now)? No 05/30/2022 Depression Answer Date Recor ded PHQ-9 Total Score (max 27) 2 10/24 Nutrition Answer Date Recorded Nutrition: EVOO Fat Source Yes 05/30 On average, how many serving s of fruits and vegetables do you eat per day (serving size is equal to 1 cup or approximately the size of a tennis ball)? 2-3 05/30/2022 Dental Answer Date Recorded Dental: Regular Dentist Yes 10/05/19 21 Employment Answer Date Recorded Employment status Unemployed/not in th paid workforce and NOT seeking employment 05/30/2022 Education Answer Date Recorded What is the highest level of school you have completed or the highest degree you have received? Bachelor's degree (e.g., BA, AB, BS) 06/08/2020 Sex and Gender Information Value Date Recorded Sex Assigned at Female 04/24/2021 2:13 PM CDT Gender Identity Female 07/12/2020 9:37 AM RN FLIGHT Sexual Orientation Straight 07/12/2020 9: 37 AM RN FLIGHT documented as of this encounter Plan of Treatment Upcoming Encounters Date Type Department Care Team (Late st Contact Info) Description 10/13/2023 1:00 PM RN FLIGHT Office Visit Department of Medical Genetics in [place], [place] [address] [place] [address] Minerva Irving M.D. 200 [place] [address] documented as of this encounter Visit Diagnoses Not on filedocumented in this encounter Additional Health Concerns Assessment Noted Time PHQ-9 Depression Total Score: 2 10/25/19 22 2:30 PM RN FLIGHT documented as of this encounter Care Teams Oil Furnace Installer Relationship Specialty Start Date End Date Elsewhere, Pcp PCP - General Family Medicine 05/03/21 documented as of this encounter
--- OUTSIDE RECORDS SUMMARY | 2023-09-18 14:09 | XMS_ITS | Encounter Summary ---
Author Name Unknown Organization [facility] Address [address] [place] [address] Care Team Providers Care Lump Maker Name Role Phone Elsewhere, Pcp Primary Care Provider Unavailabl e Reason for Visit * Outpatient (Routine) - Closed Specialty Diagnoses / Procedures Referred By Leisa henderson Referred To Contact Neurology Trever Gregory M.D. [address] [place] [phone] [facility] Referral ID Status Reason Start Date Expiration Date Visits Re quested Visits Authorized [id number] Closed 10/24/2021 10/24/2022 1 1 Encounter Details Date Type Department Care Team (Late st Contact Info) Description 11/14/2022 8:00 AM CDT Telemedicine Department of Neurology in [place], [place] [address] [place] [phone] Trever Gregory M.D. [address] [place] [phone] Migraine Headache Without Aura (Primary Dx) Social History Tobacco Use Types [...] week 05/30/2022 How often do you attend [facility] or restorationism services? 1 to 4 times per year 05/30/2022 Do you belong to any clubs o r organizations such as sikh groups, unions, fraternal or athletic groups, or [...] Answer Date Recorded PHQ-2 Score 0 10/24/2021 [facility] Occupat ional [facility] - Occupational Stress [...] place to sleep or slept in a residential (including now)? No 05/30/2022 Depression Answer Date [...] e paid workforce and NOT seeking employment 05/30/2022 Education Answer Date Recorded What is the highest level of school you have completed or the highest degree you have received? Bachelor's degree (e.g., BA, AB, BS) 06/08/2020 Sex and Gender Information Value Date Recorded Sex Assigned at Female 04/24/2021 2:13 PM CDT Gender Identity Female 07/12/2020 9:37 AM PERSONNEL ASSISTANT Sexual Orientation Straight 07/12/2020 9: 37 AM PERSONNEL ASSISTANT documented as of this encounter Progress Notes * Trever Gregory M.D. - 11/14/2022 8:00 AM CDT SUBJECTIVE This visit was conducted via real-time audio/video technology by Trever Gregory M.D. at [facility] to the patient in patient's home. This Video Visit was performed during the COVID-19 emergency, when many states had issued cmxfifz-lz-droie orders. CHIEF COMPLAINT / REASON FOR VISIT: Ms. Bains returns today for subsequent evaluation and assessment of the effectiveness of treatments suggested at her previous visit on 10/24/2021 HISTORY OF PRESENT ILLNESS: Since her last visit she has been taking: Topiramate (Topamax) at a dose of 75 to 200 mg; Sertaline(Zoloft) at a dose of 50 to 200 mg; none of the above injectable medications Over the past 4 weeks, Ms. Bains reports having had 10 headache days. The patient rates the severity and disability of average headaches as moderate, 2 out of 3 in severity. Headache intensity is rated 7 on a scale of 0-10. Over the past 3 months, she reports experiencing side effects of: Sleepiness which is mild enough to tolerate if my headaches improve. Dizziness / Vertigo which is mild enough to tolerate if my headaches improve. Light-headedness which is mild enough to tolerate if my headaches improve. 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 Afterwards her symptoms worsened for a few weeks, but she has gradually recovered. Current Outpatient Medications on File Prior to Visit Medication Sig Dispense Refill amLODIPine (NORVASC) 5 mg tablet Take 5 mg by mouth at bedtime. famotidine (PEPCID) 40 mg tablet TAKE 1 TABLET(40 MG) BY MOUTH TWICE DAILY (Patient not taking: Reported on 05/05/2022) 60 tablet 3 levothyroxine (SYNTHROID, LEVOTHROID) 100 mcg tablet Take 1 tablet by mouth daily. TAKE AT LEAST 1 HOUR BEFORE OR 2 HOURS AFTER A MEAL loratadine (CLARITIN) 10 mg tablet Take 10 mg by mouth daily. multivitamin tablet Take 1 tablet by mouth daily. rizatriptan RN DIABETES EDUCATOR (MAXALT-RN DIABETES EDUCATOR) 10 mg disintegrating tablet TAKE 1 TABLET NEEDED FOR MIGRAINE, REPEAT ONCE IN 2 HRS IF UNRESOLVED. DONT EXCEED 30MG/24HRS 12 tablet 0 sertraline (ZOLOFT) 100 mg tablet Take 150 mg by mouth at bedtime. topiramate (TOPAMAX) 100 mg tablet TAKE 1 TABLET BY MOUTH EVERY 12 HOURS 180 tablet 1 Ubrelvy 100 mg tablet tablet TAKE 1 TAB NEEDED FOR MIGRAINE. MAY REPEAT ONCE AFTER 2HR IF UNRESOLVED-DONT EXCEEDED 200MG/24 HR 10 tablet 11 No current facility-administered medications on file prior to visit. The MIDAS score today which reflects the past three months was 21. Over the past three months her average subjective pain severity scale was (0 - 10) 7. 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 Bains's headaches or comorbid disorders I am suggesting additional testing which includes: none Recommended therapies for acute treatment of headache: Continue Ubrelvy and Rizatriptan Preventative therapies recommended: Wean Topamax. Currently on 100 mg daily, reduce 25 mg every week until gone. When on topamax 50 mg, add propranolol. We recommend to start from 10 mg daily, increase 10 mg weekly to a goal dose of 60 mg. We recommend Propranolol as a preventive therapy for your migraine. This is a blood pressure medication within a class of medications call beta lars. It is expected to taken effect within 2 to 3 month, and there are great evidence that it reduces frequency and severity of migraine. The potentialside effects including lightheadedness, low blood pressure and heart rate, mood changes and fatigue. It is expected to take effect within 2 to 3 months. She will monitor her BP and discuss with her PCP whether she can be off amlodipine once she is therapeutic on propranolol. Another options would be candesartan which can also be used for migraine prevention. Future options include botox and CGRP mAb. I attempted to answer any questions that she had regarding her headaches and the recommended treatment. Recommend lifestyle modifications including the SEEDS for success in headache management, includingSleep hygiene, Exercising regularly, Eating healthy and regular meals, Drinking water and maintaining a headache Diary, and Stress reduction. Follow up plan: with one of our headache nurse practitioners in 6 months Total visit time 30 minutes including [id number] time, chart reviewed and documentation, with over 50% spent counseling with the patient and coordination of care activities described above. Answers submitted by the patient for this visit: General Review of Symptoms (Submitted on 11/11/2022) Fatigue: Yes No eye issues: Yes No ENT issues: Yes No heart issues: Yes No respiratory issues: Yes Heartburn: Yes No muscle/bone issues: Yes No skin issues: Yes Headache: Yes Light-headedness: Yes Little interest or pleasure in doing things: Yes Feeling nervous, anxious or on edge: Yes No blood/lymph issues: Yes No urinary/reproductive issues: Yes documented in this encounter Plan of Treatment Upcoming Encounters Date Type Department Care Team (Late st Contact Info) Description 10/13/2023 1:00 PM PERSONNEL ASSISTANT Office Visit Department of Medical Genetics in [place], [place] [address] [place] [phone] Minerva Irving M.D. [address] [place] [phone] documented as of this encounter Visit Diagnoses Diagnosis Migraine Headache Without Aura- Primary documented in this encounter Additional Health Concerns Assessment Noted Time PHQ-9 Depression Total Score: 2 10/25/19 22 2:30 PM PERSONNEL ASSISTANT documented as of this encounter Care Teams Lump Maker Relationship Specialty Start Date End Date Elsewhere, Pcp PCP - General Family Medicine 05/03/21 documented as of this encounter
--- OUTSIDE RECORDS SUMMARY | 2023-09-18 14:09 | XMS_ITS | Encounter Summary ---
Author Name Unknown Organization [facility] Address [address] [place] [address] Care Team Providers Care Machine Shop Apprentice Name Role Phone Elsewhere, Pcp Primary Care Provider Unavailabl e Reason for Visit * Reason Comments Med Refill Encounter Details Date Type Department Care Team ([facility] st Contact Info) Description 04/24/2023 Refill Department of Neurology in [place], [place] [address] [place] [phone] Trever Gregory M.D. [address] [place] [phone] Med Refill Social History Tobacco Use Types [...] often do you attend chur ch or presybeterian services? More than 4 times per year 12/31/2022 Do you belong to any clubs o r organizations such as catholic groups, unions, fraternal or athletic groups, or [...] Answer Date Recorded PHQ-2 Score 0 10/24/2021 [facility] - Occupational Stress Questionnaire Answer Date [...] place to sleep or slept in a half-way (including now)? No 12/31/2022 Depression Answer Date [...] CDT Gender Identity Female 07/12/2020 9:37 AM FOREIGN COLLECTION CLERK Sexual Orientation Straight 07/12/2020 9: 37 AM FOREIGN COLLECTION CLERK documented as of this encounter Plan of Treatment Upcoming Encounters Date Type Department Care Team (Late st Contact Info) Description 10/13/2023 1:00 PM FOREIGN COLLECTION CLERK Office Visit Department of Medical Genetics in [place], [place] 200 [place] [phone] Minerva Irving M.D. [address] [place] [address] documented as of this encounter Visit Diagnoses Diagnosis Migraine Headache- Primary documented in this encounter Additional Health Concerns Assessment Noted Time PHQ-9 Depression Total Score: 2 10/25/19 22 2:30 PM FOREIGN COLLECTION CLERK documented as of this encounter Care Teams Machine Shop Apprentice Relationship Specialty Start Date End Date Elsewhere, Pcp PCP - General Family Medicine 05/03/21 documented as of this encounter
--- OUTSIDE RECORDS SUMMARY | 2023-09-18 14:09 | XMS_ITS | Encounter Summary ---
Author Name Unknown Organization [facility] Address [address] [place] [address] Care Team Providers Care Mill Set Up Name Role Phone Elsewhere, Pcp Primary Care Provider Unavailabl e Encounter Details Date Type Department Care Team (Latest Contact Info) Description 01/01/2023 1:40 PM CDT Ancillary Procedure Department of Otorhinolaryngology Social History Tobacco Use Types Packs/Day Years [...] week 12/31/2022 How often do you attend [facility] or mormonism services? More than 4 times per year 12/31/2022 Do you belong to any clubs o r organizations such as rastafari groups, unions, fraternal or athletic groups, or [...] 10/24/2021 [facility] of Occupat ional Health - Occupational Stress [...] place to sleep or slept in a halfway (including now)? No 12/31/2022 Depression Answer Date [...] CDT Gender Identity Female 07/12/2020 9:37 AM CABLE REPAIRER Sexual Orientation Straight 07/12/2020 9: 37 AM CABLE REPAIRER documented as of this encounter Plan of Treatment Upcoming Encounters Date Type Department Care Team (Late st Contact Info) Description 10/13/2023 1:00 PM CABLE REPAIRER Office Visit Department of Medical Genetics in [place], [place] 200 [place] [phone] Minerva Irving M.D. 200 [place] [phone] documented as of this encounter Procedures Procedure Name Priority Date/Time Associated Diagnosis Comments OTORHINOLARYNGOLOGY IMAGE EXAM Routine 01/01/2023 10:05 AM CDT documented in this encounter Results * Otorhinolaryngology Image Exam-Otorhinolaryngology Image Exam (01/01/2023 10:05 AM CDT) 01/01/2023 1:37 PM CDT Narrative [facility] - 01/01/2023 10:05 AM CDT This order has been created and auto-finalized to support the import of images acquired without order. The clinical documentation to support these images can be found on the encounter that produced images. Provider Not In System IMG NON RAD IMAGI NG PROCEDURES [facility] NA documented in this encounter Visit Diagnoses Not on filedocumented in this encounter Additional Health Concerns Assessment Noted Time PHQ-9 Depression Total Score: 2 10/25/19 22 2:30 PM CABLE REPAIRER documented as of this encounter Care Teams Mill Set Up Relationship Specialty Start Date End Date Elsewhere, Pcp PCP - General Family Medicine 05/03/21 documented as of this encounter
--- OUTSIDE RECORDS SUMMARY | 2023-09-18 14:09 | XMS_ITS | Encounter Summary ---
Author Name Unknown Organization [facility] Address [address] [place] [address] Care Team Providers Care Edger Machine Setter Name Role Phone Elsewhere, Pcp Primary Care Provider Unavailabl e Reason for Visit * Reason Comments Med Refill Encounter Details Date Type Department Care Team ([facility] st Contact Info) Description 03/11/2023 Refill Department of Neurology in [place], [place] [address] [place] [phone] Trever Gregory M.D. [address] [place] [phone] Med Refill Social History Tobacco Use Types [...] often do you attend chur ch or sabianist services? More than 4 times per year [...] Answer Date Recorded PHQ-2 Score 0 10/24/2021 [facility] - Occupational Stress Questionnaire Answer Date [...] CDT Gender Identity Female 07/12/2020 9:37 AM OUTDOOR FITNESS TRAINER Sexual Orientation Straight 07/12/2020 9: 37 AM OUTDOOR FITNESS TRAINER documented as of this encounter Plan of Treatment Upcoming Encounters Date Type Department Care Team (Late st Contact Info) Description 10/13/2023 1:00 PM OUTDOOR FITNESS TRAINER Office Visit Department of Medical Genetics in [place], [place] 200 [place] [address] Minerva Irving M.D. [address] [place] [address] documented as of this encounter Visit Diagnoses Not on filedocumented in this encounter Additional Health Concerns Assessment Noted Time PHQ-9 Depression Total Score: 2 10/25/19 22 2:30 PM OUTDOOR FITNESS TRAINER documented as of this encounter Care Teams Edger Machine Setter Relationship Specialty Start Date End Date Elsewhere, Pcp PCP - General Family Medicine 05/03/21 documented as of this encounter
--- OUTSIDE RECORDS SUMMARY | 2023-09-18 14:09 | XMS_ITS | Encounter Summary ---
Author Name Unknown Organization [facility] Address [address] [place] [address] Care Team Providers Care Supply Chain Consultant Name Role Phone Elsewhere, Pcp Primary Care Provider Unavailabl e Reason for Visit * Reason Comments Med Refill Encounter Details Date Type Department Care Team ([facility] st Contact Info) Description 05/20/2023 Refill Department of Neurology in [place], [place] [address] [place] [phone] Avinash Alas M.D. [address] [place] [address] Med Refill Social History Tobacco Use Types [...] often do you attend chur ch or alevism services? More than 4 times per year 12/31/2022 Do you belong to any clubs o r organizations such as religious groups, unions, fraternal or athletic groups, or [...] Answer Date Recorded PHQ-2 Score 0 10/24/2021 [facility] - Occupational Stress Questionnaire Answer Date [...] place to sleep or slept in a long term (including now)? No 12/31/2022 Depression Answer Date [...] CDT Gender Identity Female 07/12/2020 9:37 AM GEOSCIENCES FACULTY MEMBER Sexual Orientation Straight 07/12/2020 9: 37 AM GEOSCIENCES FACULTY MEMBER documented as of this encounter Plan of Treatment Upcoming Encounters Date Type Department Care Team (Late st Contact Info) Description 10/13/2023 1:00 PM GEOSCIENCES FACULTY MEMBER Office Visit Department of Medical Genetics in [place], [place] 200 [place] [address] Minerva Irving M.D. 200 [place] [address] documented as of this encounter Visit Diagnoses Diagnosis Migraine Headache documented in this encounter Additional Health Concerns Assessment Noted Time PHQ-9 Depression Total Score: 2 10/25/19 22 2:30 PM GEOSCIENCES FACULTY MEMBER documented as of this encounter Care Teams Supply Chain Consultant Relationship Specialty Start Date End Date Elsewhere, Pcp PCP - General Family Medicine 05/03/21 documented as of this encounter
--- OUTSIDE RECORDS SUMMARY | 2023-09-18 14:09 | XMS_ITS | Encounter Summary ---
Author Name Unknown Organization [facility] Address [address] [place] [address] Care Team Providers Care Cab Starter Name Role Phone Elsewhere, Pcp Primary Care Provider Unavailabl e Reason for Visit * Reason Comments Follow-up * Outpatient (Routine) - Closed Specialty Diagnoses / Procedures Referred By Leisa henderson Referred To Contact Otorhinolaryngology Dequan Cintron M.D. [address] [place] [phone] [facility] Referral ID Status Reason Start Date Expiration Date Visits Re quested Visits Authorized [id number] Closed 06/27/2022 06/26/2025 1 1 Encounter Details Date Type Department Care Team (Latest Contact Info) Description 01/01/2023 9:45 AM CDT Office Visit Department of Otorhinolaryngology in [place], [place] [address] [place] [phone] Isidro Olmedo M.D. [address] [place] [phone] Paralysis Vocal Cord Unilateral Complete (Primary Dx) Social History Tobacco Use Types [...] any clubs o r organizations such as baptist groups, unions, fraternal or athletic groups, or [...] Answer Date Recorded PHQ-2 Score 0 10/24/2021 [facility] of Occupat ional Health - Occupational Stress [...] CDT Gender Identity Female 07/12/2020 9:37 AM AVIATION MAINTENANCE TECHNICIAN Sexual Orientation Straight 07/12/2020 9: 37 AM AVIATION MAINTENANCE TECHNICIAN documented as of this encounter Progress Notes * Isidro Olmedo M.D. - 01/01/2023 9:45 AM CDT Images from the original note were not included. [facility] CHIEF COMPLAINT/PURPOSE OF VISIT: Chief Complaint Patient presents with Follow-up HISTORY OF PRESENT ILLNESS: Ms. Bains is a 42 y.o. 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 She underwent Restylane injections on 08/03/20 and 11/29/20. She had issue with supraglottic swelling following her injection in November. 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 On 06/27/2022, she underwent microdirect laryngoscopy with right true vocal fold fat injection. She returns today for follow-up. Please refer to clinical notes for complete history and details. Lisa feels her voice continues to be quite strong after her fat injection to the vocal cord and nasopharynx in June. She is able ot project better than before and endorses a good vocal quality. She has had no further issues with emesis and her headaches are improving. Swallowing is stable. Patient rates the voice today as 90 percent of normal. Concern equals 2/7. Effort equals 2/7. Patient can talk for >90 minutes before having difficultywith voice. Total score on the voice handicap index -10 (VHI- 10) is 14/40. Social History Tobacco Use Smoking status: Never Smokeless tobacco: Never Vaping Use Vaping Use: never used Substance Use Topics Alcohol use: Yes Alcohol/week: 1.0 standard drink of alcohol Types: 1 Glasses of wine per week Comment: Occasional only Drug use: Never PHYSICAL EXAM: General: Resting comfortably, no stridor. Conversational voice is strong. PROCEDURE NOTE Flexible Nasopharyngoscopy and laryngostroboscopy: Verbal consent obtained and universal protocol followed. In order to evaluate the chief complaint, flexible nasopharyngoscopy and laryngoscopy was performed as a separate identifiable procedure. Two percent lidocaine with phenylephrine was instilled into the right and left nares. A flexible laryngoscope was then passed transnasally. The nasal cavity and nasopharynx were closely evaluated to assess for velopharyngeal closure. The larynx was alsoexamined, specifically the supraglottis, true vocal folds, and subglottis. Vocal fold adduction andabduction were assessed. The true vocal folds, arytenoids, and interarytenoid spaces were closely visualized to confirm presence or absence of erythema, edema, or structural lesions. Videostroboscopy was performed. The scope was removed. Procedure details: The right arytenoid remains immobile without hooding. The left arytenoid is fully mobile. There is complete glottic closure with phonation with a resolved posterior gap. The vocal edge is smooth and straight without concerning lesions bilaterally. The right cord is well medialized s/p fat injection. The mucosal wave is normal bilaterally with a symmetric phase. The subglottis is normal. There is no significant interarytenoid or pablo arytenoid edema or erythema. The subglottis is normal. IMPRESSION: 1. Paralysis Vocal Cord Unilateral Complete Patient presenting in follow up for a right vocal fold paralysis and velopharyngeal insufficiency in the setting of paraganglioma excision and ansa reinnervation status post fat injection to the nasopharynx and PLAN I am pleased to see the nice result Lisa got after her fat injections in June. We discussed returning to see me as needed given the nice result that she has an near normal voicing today. It was a pleasure caring for her. PATIENT EDUCATION Ready to learn, no apparent learning barriers were identified; learning preferences include listening. Explained diagnosis and treatment plan; patient expressed understanding of the content. documented in this encounter Plan of Treatment Upcoming Encounters Date Type Department Care Team (Late st Contact Info) Description 10/13/2023 1:00 PM AVIATION MAINTENANCE TECHNICIAN Office Visit Department of Medical Genetics in [place], [place] [address] [place] [address] Minerva Irving M.D. [address] [place] [address] documented as of this encounter Visit Diagnoses Diagnosis Paralysis Vocal Cord Unilateral Complete- Primary documented in this encounter Additional Health Concerns Assessment Noted Time PHQ-9 Depression Total Score: 2 10/25/19 22 2:30 PM AVIATION MAINTENANCE TECHNICIAN documented as of this encounter Care Teams Cab Starter Relationship Specialty Start Date End Date Elsewhere, Pcp PCP - General Family Medicine 05/03/21 documented as of this encounter
--- OUTSIDE RECORDS SUMMARY | 2023-09-18 14:09 | XMS_ITS | Encounter Summary ---
Author Name Unknown Organization [facility] Address [address] [place] [address] Care Team Providers Care Process Steward Name Role Phone Elsewhere, Pcp Primary Care Provider Unavailabl e Encounter Details Date Type Department Care Team (Latest Contact Info) Description 11/12/2022 12:15 PM CDT Clinical Communication Virtual Review in [place], [place] [address] [place], [place] [phone] Social History Tobacco Use Types Packs/Day Years [...] often do you attend chur ch or oriental orthodox services? 1 to 4 times per year 05/30/2022 Do you belong to any clubs o r organizations such as samaritan groups, unions, fraternal or athletic groups, or [...] Answer Date Recorded PHQ-2 Score 0 10/24/2021 [facility] - Occupational Stress Questionnaire Answer Date [...] place to sleep or slept in a long-term (including now)? No 05/30/2022 Depression Answer Date [...] CDT Gender Identity Female 07/12/2020 9:37 AM ALUMINUM BOAT ASSEMBLY SUPERVISOR Sexual Orientation Straight 07/12/2020 9: 37 AM ALUMINUM BOAT ASSEMBLY SUPERVISOR documented as of this encounter Plan of Treatment Upcoming Encounters Date Type Department Care Team (Late st Contact Info) Description 10/13/2023 1:00 PM ALUMINUM BOAT ASSEMBLY SUPERVISOR Office Visit Department of Medical Genetics in [place], [place] 200 [place] [phone] Minerva Irving M.D. 200 [place] [address] documented as of this encounter Visit Diagnoses Not on filedocumented in this encounter Additional Health Concerns Assessment Noted Time PHQ-9 Depression Total Score: 2 10/25/19 22 2:30 PM ALUMINUM BOAT ASSEMBLY SUPERVISOR documented as of this encounter Care Teams Process Steward Relationship Specialty Start Date End Date Elsewhere, Pcp PCP - General Family Medicine 05/03/21 documented as of this encounter
--- OUTSIDE RECORDS SUMMARY | 2023-09-18 14:09 | XMS_ITS | Encounter Summary ---
Author Name Unknown Organization [facility] Address [address] [place] [address] Care Team Providers Care Food And Beverage Cashier Name Role Phone Elsewhere, Pcp Primary Care Provider Unavailabl e Reason for Visit * Reason Comments Med Refill Encounter Details Date Type Department Care Team ([facility] st Contact Info) Description 02/13/2023 Refill Department of Neurology in [place], [place] [address] [place] [phone] Trever Gregory M.D. [address] [place] [phone] Med Refill Social History Tobacco Use Types [...] often do you attend chur ch or episcopal services? More than 4 times per year 12/31/2022 Do you belong to any clubs o r organizations such as quaker groups, unions, fraternal or athletic groups, or [...] Answer Date Recorded PHQ-2 Score 0 10/24/2021 [facility] - Occupational Stress Questionnaire Answer [...] CDT Gender Identity Female 07/12/2020 9:37 AM TECHNICAL SOLUTIONS DIRECTOR Sexual Orientation Straight 07/12/2020 9: 37 AM TECHNICAL SOLUTIONS DIRECTOR documented as of this encounter Miscellaneous Notes * Telephone Encounter - Terrence Vera R.N. - 02/13/2023 11:08 AM CDT Called patient's [facility] pharmacy about refill request for Propanolol. They stated that the request isnot needed at this time, she was given a 3 month supply on 01/16. We will delete the request and let you know when the patient needs more. documented in this encounter Plan of Treatment Upcoming Encounters Date Type Department Care Team (Late st Contact Info) Description 10/13/2023 1:00 PM TECHNICAL SOLUTIONS DIRECTOR Office Visit Department of Medical Genetics in [place], [place] [address] [place] [address] Minerva Irving M.D. [address] [place] [phone] documented as of this encounter Visit Diagnoses Not on filedocumented in this encounter Additional Health Concerns Assessment Noted Time PHQ-9 Depression Total Score: 2 10/25/19 22 2:30 PM TECHNICAL SOLUTIONS DIRECTOR documented as of this encounter Care Teams Food And Beverage Cashier Relationship Specialty Start Date End Date Elsewhere, Pcp PCP - General Family Medicine 05/03/21 documented as of this encounter
--- OUTSIDE RECORDS SUMMARY | 2023-09-18 14:09 | XMS_ITS | Encounter Summary ---
Author Name Unknown Organization [facility] Address [address] [place] [address] Care Team Providers Care Flipping Machine Operator Name Role Phone Elsewhere, Pcp Primary Care Provider Unavailabl e Reason for Referral * Medication Prior Authorization - Authorized Specialty Diagnoses / Procedures Referred By Leisa henderson Referred To Contact Trever Gregory M.D. [address] [place] [phone] Referral ID Status Reason Start Date Expiration Date V isits Requested Visits Authorized [id number] Authorized 06/07/2023 06/06/2024 1 1 IAL ORDER JEWELER Reason for Visit * Reason Comments Med Refill Encounter Details Date Type Department Care Team (Late st Contact Info) Description 10/06/2022 Refill Department of Neurology in [place], [place] [address] [place] [phone] Trever Gregory M.D. [address] [place] [phone] Med Refill Social History Tobacco Use Types [...] often do you attend chur ch or yarsanism services? 1 to 4 times per year [...] Answer Date Recorded PHQ-2 Score 0 10/24/2021 [facility] [place] - Occupational Stress [...] money to buy more. Never true 05/30/20 Within the past 12 months, t he [...] place to sleep or slept in a chcf (including now)? No 05/30/2022 Depression Answer Date [...] CDT Gender Identity Female 07/12/2020 9:37 AM SPECIAL ORDER JEWELER Sexual Orientation Straight 07/12/2020 9: 37 AM SPECIAL ORDER JEWELER documented as of this encounter Plan of Treatment Upcoming Encounters Date Type Department Care Team (Late st Contact Info) Description 10/13/2023 1:00 PM SPECIAL ORDER JEWELER Office Visit Department of Medical Genetics in [place], [place] [address] [place] [phone] Minerva Irving M.D. [address] [place] [address] documented as of this encounter Visit Diagnoses Not on filedocumented in this encounter Additional Health Concerns Assessment Noted Time PHQ-9 Depression Total Score: 2 10/25/19 22 2:30 PM SPECIAL ORDER JEWELER documented as of this encounter Care Teams Flipping Machine Operator Relationship Specialty Start Date End Date Elsewhere, Pcp PCP - General Family Medicine 05/03/21 documented as of this encounter
== END 2023-09-18 13:51 | disposition home or self-care (01) ==
LOC: NPINS 13:50
PROVIDERS: PCP Family Medicine; Visit Provider Internal Medicine
DX: E03.9 Hypothyroidism, unspecified (principal)
CPT/HCPCS: 84443

== ENCOUNTER 2023-11-19 08:20 | Outpatient (CLI) | payer OTHER, SELFPAY | END 2023-11-19 08:21 | disposition home or self-care (01) | LOC: NFLDREF 11-20 06:30 | PROVIDERS: PCP Family Medicine; Referring Provider Family Medicine; Visit Provider Family Medicine | DX: E03.9 Hypothyroidism, unspecified (principal); D64.9 Anemia, unspecified; E78.5 Hyperlipidemia, unspecified; I10 Essential (primary) hypertension | CPT/HCPCS: 80053; 80061; 82728; 84443 ==

== ENCOUNTER 2024-03-11 00:07 | Outpatient (REF) | payer OTHER, SELFPAY ==
--- OUTSIDE RECORDS SUMMARY | 2024-03-11 00:12 | XMS_ITS | Clinical Summary ---
Author Organization [facility] Address [address] [place] [address] Care Team Providers Care Guidance Consultant Name Role Phone No Primary/Referring, Phy Primary Care Provider Unavailable Source Comments You are receiving this document as you are listed as the primary care provider,follow-up provider, or the patient has been referred to you for consultation.This is in compliance with the Medicare andTri[facility] Hospitalcaid EHR Incentive Program,which states Providers who transition their patient to another setting of careor provider of care or refers their patient to another provider of care shouldprovide summary care record for each transition of care or referral. [email or web address] Allergies Active Allergy Reactions Criticality Noted Date Comments Meperidine Other, see comments 04/11/2015 itching Medications Medication Sig Dispensed Refills Start Date End Date Status sertraline (ZOLOFT) 100 MG tablet TK 1 AND 1/2 TS PO D 3 08/19/2018 Active amLODIPine (NORVASC) 5 MG tablet TK 1 T PO D 07/11/2020 Active topiramate (TOPAMAX) 25 MG tablet 125 mg daily 90 Tablet 11 12/22/2020 Active famotidine (PEPCID) 40 MG tablet Take 40 mg by mouth daily. 10/19/2020 Active rizatriptan (MAXALT-TELESCOPE OPERATOR) 10 MG disintegrating tablet Take 10 mg by mouth at bedtime as needed. 10/20/2020 Active Multiple Vitamin (MULTI-VITAMIN) tablet Take 1 Tablet by mouth daily. Active levothyroxine (SYNTHROID) 125 MCG tabletIndications:Hypo thyroidism (acquired) (HRC) Take 1 Tablet (125 mcg) by mouth daily. Take at least one hour before or two hours after meal. 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 Hypothyroidism (acquired) 07/12/2015 Insomnia 04/11/2015 Resolved Problems Problem Noted Date Diagnosed Date Resolved Date Other specified hypothyroidism 04/11/2015 07/12/2015 Family History Medical History Relation Name Comments [...] History Coronary Valve Surgery Negative Family History Ryan Syndrome Negative Family History Crohn's Disease Negative [...] 170.2 cm (5' 7) 07/20/2020 2:10 PM ATOMIZER ASSEMBLER Body Mass Index 21.93 07/20/2020 2:10 PM ATOMIZER ASSEMBLER Plan of Treatment Upcoming Encounters Date Type Department Care Team (Late st Contact Info) Description 03/12/2024 8:50 AM CDT Telemedicine Specialty Center [address] [place] [address]. [place] [address] Gabriele Gaitan MD [address] [place] [address] Health Maintenance Due Date Last Done Comments Cervical Cancer Screening Due 1982 Hep C Screening (Preventive Services) 1982 Mammogram 1982 HIV Screening (Preventive Services) 1998 Adult Preventive Visit 2000 HepB (1) 2001 COVID-19 Vaccine ( season) 2023 07/10/2021, 12/12/2020, 11/14/2020 Influenza (#1) 2024 05/22/2023, 06/19, 08/01/2020, Additional history exists DTaP/Tdap/Td (3 - Tdap) 08/09/2029 08/09/2019, 09/10 Zoster/Shingles (1 of 2) 2032 HPV Vaccine Aged Out No longer eligi [...] age to complete this topic Care Teams Guidance Consultant Relationship Specialty Start Date End Date No Primary/Referring, Adiay PCP - General 03/01/15
--- OUTSIDE RECORDS SUMMARY | 2024-03-11 00:12 | XMS_ITS | Encounter Summary ---
Author Organization [facility] Address [address] [place] [address] Care Team Providers Care Mechanical Detailer Name Role Phone No Primary/Referring, Phy Primary Care Provider Unavailable Encounter Details Date Type Department Care Team (Late st Contact Info) Description 10/23/2018 Consent for Procedure/Treatme nt [facility] Department RH INFORMED CONSENT FOR SLEEP/AUDIO/VIDEO Social History Tobacco [...] CDT Telemedicine Specialty [facility] [address] [place] [address]. [place] [address] Gabriele Gaitan MD [address] [place] [address] documented as of this encounter Visit Diagnoses Not on filedocumented in this encounter Care Teams Mechanical Detailer Relationship Specialty Start Date End Date No Primary/Referring, Tree PCP - General 03/01/15 documented as of this encounter
--- OUTSIDE RECORDS SUMMARY | 2024-03-11 00:12 | XMS_ITS | Encounter Summary ---
Author Organization [facility] Address [address] [place] [address] Care Team Providers Care Forest Supervisor Name Role Phone No Primary/Referring, Phy Primary Care Provider Unavailable Encounter Details Date Type Department Care Team (Latest Contact Info) Description 12/02/2023 Orders Only HIM DEPARTMENT Provider, [place] [address] Social History Tobacco Use Types Packs/Day Years [...] CDT Telemedicine Specialty [facility] [address] [facility] [place] [address]. [place], [place] [phone] Gabriele Gaitan MD [address] [place] [phone] documented as of this encounter Procedures Procedure Name Priority Date/Time Associated Diagnosis Comments LABORATORY REPORT 12/02/2023 documented in this encounter Results * LABORATORY REPORT (12/02/2023) Interface Provider DUMMY/OTHER/AR documented in this encounter Visit Diagnoses Not on filedocumented in this encounter Care Teams Forest Supervisor Relationship Specialty Start Date End Date No Primary/Referring, Phy PCP - General 03/01/15 documented as of this encounter
--- OUTSIDE RECORDS SUMMARY | 2024-03-11 00:13 | XMS_ITS | Encounter Summary ---
Author Organization [facility] Address [address] [place] [address] Care Team Providers Care Brake Holder Name Role Phone No Primary/Referring, Phy Primary Care Provider Unavailable Encounter Details Date Type Department Care Team (Late st Contact Info) Description 03/01/2015 Scanned History External to Transferred Record, Provider [facility] Social History Tobacco Use Types Packs/Day Years [...] Telemedicine Specialty Center [address] [facility] 401 [facility]. [place], [place] [phone] Gabriele Gaitan MD [address] [place] [address] documented as of this encounter Visit Diagnoses Not on filedocumented in this encounter Care Teams Brake Holder Relationship Specialty Start Date End Date No Primary/Referring, Phy PCP - General 03/01/15 documented as of this encounter
--- OUTSIDE RECORDS SUMMARY | 2024-03-11 00:13 | XMS_ITS | Encounter Summary ---
Author Organization [facility] Address [address] [place] [address] Care Team Providers Care Male Model Name Role Phone Elsewhere, Pcp Primary Care Provider Unavailabl e Reason for Visit * Reason Onset Date Comments Pre-visit Intake 03/08/2024 Encounter Details Date Type Department Care Team (Latest Contact Info) Description 03/08/2024 4:00 PM CDT Clinical Communication Virtual Review in [place], [place] 200 [place] [phone] Pre-visit Intake Social History Tobacco Use Types Packs/Day Years Used Date Smoking Tobacco: Never Smokeless Tobacco: Never Tobacco Cessation:Counseling Given: Not Answered Alcohol Use Standard Drinks/Week Comments Yes 1 (1 standard drink = 0.6 oz pur e alcohol) Occasional only [facility] Utilities Answer Date Recorded In the past 12 months has e electric, gas, oil, or water company threatened to shut off services in your home? No 01/19/2024 Humiliation, Afraid, Rape, and Kick questionnair e [...] often do you attend chur ch or islam services? More than 4 times per year 12/31/2022 Do you belong to any clubs o r organizations such as hoahaoism groups, unions, fraternal or athletic groups, or [...] Answer Date Recorded PHQ-2 Score 0 10/24/2021 [facility] Answer Date [...] exercise (like a brisk walk)? 2 days 01/19/2024 On average, how many minutes do you engage in exercise at this level? 20 min 01/19/2024 Hunger Vital Sign Answer Date Recorded Within the past 12 months, y ou worried that your food would run out before you got the money to buy more. Never true 01/19/20 24 Within the past 12 months, t he food you bought just didn't last and you didn't have money to get more. Never true 01/19/2024 [facility] - Transportation Answer Date Re corded In the past 12 months, has l ack of transportation kept you from medical appointments or from getting medications? No 10/2023 In the past 12 months, has l ack of transportation kept you from meetings, work, or from getting things needed for daily living? No 01/19/2024 Depression Answer Date Recor ded PHQ-9 Total Score (max 27) 2 10/24 Nutrition Answer Date Recorded On average, how many serving s of fruits and vegetables do you eat per day (serving size is equal to 1 cup or approximately the size of a tennis ball)? 0-2 01/19/2024 Dental Answer Date Recorded Dental: Regular Dentist Yes 10/05/19 21 Employment Answer Date Recorded Employment status Unemployed/not in [employer] paid workforce and NOT seeking employment 01/19/2024 Housing Stability Answer Date Recorded What is your living situation today? I have a [facility] place to live 01/19/2024 Education Answer Date Recorded What is the highest level of school you have completed or the highest degree you have received? Bachelor's degree (e.g., BA, AB, BS) 06/08/2020 Sex and Gender Information Value Date Recorded Sex Assigned at Female 04/24/2021 2:13 PM CDT Gender Identity Female 07/12/2020 9:37 AM WALL COVERING INSTALLER Sexual Orientation Straight 07/12/2020 9: 37 AM WALL COVERING INSTALLER documented as of this encounter Plan of Treatment Upcoming Encounters Date Type Department Care Team (Late st Contact Info) Description 03/12/2024 12:00 PM CDT Appointment Division of Gastroenterology in [place], [place] 200 [place] [phone] Keshawn Patino P.A.-C. [address] [place] [phone] Carmenza Robertson M.D. [address] [place] [phone] 03/17/2024 3:30 PM CDT Telemedicine Division of Colon and Rectal Surgery in [place], [place] [address] [place] [phone] Keshawn Patino P.A.-C. [address] [place] [phone] 03/24/2024 10:00 AM CDT Telemedicine Department of Medical Genetics in [place], [place] [address] [place] [phone] Minerva Irving M.D. [address] [place] [phone] documented as of this encounter Visit Diagnoses Not on filedocumented in this encounter Additional Health Concerns Assessment Noted Time PHQ-9 Depression Total Score: 2 10/25/19 22 2:30 PM WALL COVERING INSTALLER documented as of this encounter Care Teams Male Model Relationship Specialty Start Date End Date Elsewhere, Pcp PCP - General Family Medicine 05/03/21 documented as of this encounter
--- OUTSIDE RECORDS SUMMARY | 2024-03-11 00:13 | XMS_ITS | Referral Summary ---
Author Organization [facility] Address [address] [place] [address] Care Team Providers Care High Worker Name Role Phone Elsewhere, Pcp Primary Care Provider Unavailabl e Source Comments Patient records contain information from all sites at [facility]. For routine questions regarding patient records, call [phone] during business hours, M-F 8:00 AM - 5:00 PM Central Time. Record requests for emergency care only can be directed to [phone] at any time.[facility] Encounters Date Type Department Care Team Description 03/08/2024 4:00 PM CDT Clinical Communication Virtual Review in [address] [phone] Pre-visit Intake 02/14/2024 Refill Division of Pulmonary Medicine in [address] [phone] Zenaida Bender M.B., B.Ch., B.A.O. Med Refill 01/22/2024 7:49 AM CDT - 01/22/2024 11:59 PM CDT Hospital Encounter Department of Laboratory Medicine and Pathology, [facility], in [place], [place] [address] [place] [phone] Leonie Junior M.D., Ph.D. Fibrosis Pulmonary (HCC) Discharge Disposition: Home or Self Care 01/22/2024 6:46 AM CDT - 01/22/2024 7:48 AM CDT Hospital Encounter Department of Radiology, [facility], in [place], [place] [address] [place] [phone] Leonie Junior M.D., Ph.D. Fibrosis Pulmonary (HCC) Discharge Disposition: Home or Self Care 01/22/2024 1:30 PM CDT Comprehensive Visit Division of Pulmonary Medicine in [place], [place] [address] [place] [phone] Michelle Suarez M.D. Zenaida Bender M.B., B.Ch., B.A.O. Other Disorders Of Lung 01/21/2024 9:45 AM CDT Clinical Communication Virtual Review in [place], [place] 200 [place] [address] Previsit Preparation (GRAYSON DD) 12/30/2023 12:20 PM CDT - 12/30/2023 11:59 PM CDT Hospital Encounter Department of Laboratory Medicine and Pathology, [facility], in [address] [phone] Minerva Irving M.D. Hypertension Essential Primary; Paraganglioma (HCC) Discharge Disposition: Home or Self Care 12/30/2023 11:00 AM CDT Office Visit Department of Medical Genetics in [address] [phone] Minerva rIving M.D. Paraganglioma (HCC) (Primary Dx); Hypertension Essential Primary 12/24/2023 Orders Only Division of Colon and Rectal Surgery in [place], [place] [address] [place] [phone] Keshawn Patino, P.A.-C. 12/22/2023 Orders Only Division of Colon and Rectal Surgery in [place], [place] [address] [place] [phone] Keshawn Patino, P.A.-C. 12/22/2023 Clinical Communication Division of Colon and Rectal Surgery in [address] [phone] Keshawn Patino, P.A.-C. Pre-visit Testing Orders (Colonoscopy prep) 12/22/2023 Clinical Communication Division of Colon and Rectal Surgery in [place], [place] [address] [place] [address] Keshawn Patino P.A.-C. 12/17/2023 Orders Only Division of Pulmonary Medicine in [place], [place] [address] [place] [phone] [facility], Provider Fibrosis Pulmonary (HCC) 12/16/2023 Community Orders [facility] [address] [place] [address] Michelle Suarez M.D. Other Disorders Of Lung (Primary Dx) 12/14/2023 Refill Department of Neurology in [place], [place] [address] [place] [address] Avinash Alas M.D. Med Refill from Last 3 Months Allergies Active Allergy Reactions Criticality Noted Date Comments Meperidine Itching,Other (see comments) 015 itching Medications Medication Sig Dispensed Refills Start Date End Date Status sertraline (ZOLOFT) 100 mg tablet Take 150 mg by mouth at bedtime. 08/19/2018 Active amLODIPine (NORVASC) 5 mg tablet Take 10 mg by mouth at bedtime. 10 mg 05/10/2020 Active multivitamin tablet Take 1 tablet by mouth daily. Active levothyroxine (SYNTHROID, LEVOTHROID) 100 mcg tablet Take 112 mcg by mouth daily. TAKE AT LEAST 1 HOUR BEFORE OR 2 HOURS AFTER A MEAL 05/07/2021 Active buPROPion XL (WELLBUTRIN XL) 150 mg 24 hr tablet Take 150 mg by mouth daily. 03/12/2023 Active Ubrelvy 100 mg tablet tablet TAKE 1 TAB NEEDED FOR MIGRAINE. MAY REPEAT ONCE AFTER 2HR IF UNRESOLVED-DON T EXCEEDED 200MG/24 HR 10 tablet 10 10/24/2023 Active rizatriptan COMMERCIAL COORDINATOR (MAXALT-COMMERCIAL COORDINATOR) 10 mg disintegrating tablet DISSOLVE 1 TABLET (10 MG TOTAL) IN THE MOUTH NEEDED FOR MIGRAINE. MAY REPEAT DOSE ONCE IN 2 HOURS IF MIGRAINE IS UNRESOLVED. DO NOT EXCEED 30 MG IN 24 HOURS. 12 tablet 10/24/2023 Active propranoloL (INDERAL LA) 60 mg 24 hr capsuleIndications: Migraine Headache take 1 capsule by mouth every day 90 capsule 3 12/16/2023 Active sod sulf-pot chloride-mag sulf (SUTAB) 1.479-0.188- 0.225 gram tablet Follow director biologics's instructions. SUTAB is a split-dose (2-day) regimen. You will take the tablets in two doses of 12 tablets each. Water (16 oz) must be consumed with each dose of SUTAB, and two additional tavarez (16 oz each) must be consumed after each dose. 24 tablet 12/24/2023 Active albuterol 90 mcg/actuation inhaler INHALE 2 PUFFS EVERY 6 HOURS NEEDED FOR SHORTNESS OF BREATH OR COUGH. 18 g 11 02/16/2024 Active albuterol 90 mcg/actuation inhaler Inhale 2 puffs every 6 (six) hours as needed for shortness of breath (Cough). 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 Takes sertraline. Paraganglioma 07/05/2020 Overview (07/05/2020): Added automatically from request for surgery [id number] Mass Neck 07/04/2020 Hypothyroidism 07/12/2015 Hypertension Essential Primary Overview (07/12/2020): Takes amlodipine Gastroesophageal Reflux Disease Overview (07/12/2020): Tums as needed. 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 Echo in 06/2016 Immunizations Name [...] 0.6 oz pur e alcohol) Occasional only [facility] Utilities Answer Date Recorded In the past 12 months has e [employer], gas, oil, or water [facility] threatened to shut off services in your [...] often do you attend chur ch or shinto services? 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 I have a serina place to live 01/19/2024 Education Answer Date Recorded What is the highest level of school you have completed or the highest degree you have received? Bachelor's degree (e.g., BA, AB, BS) 06/08/2020 Sex and Gender Information Value Date Recorded Sex Assigned at Female 04/24/2021 2:13 PM CDT Gender Identity Female 07/12/2020 9:37 AM DOOR ATTENDANT Sexual Orientation Straight 07/12/2020 9: 37 AM DOOR ATTENDANT Last Filed Vital Signs Vital Sign Reading Time Taken Comments Blood Pressure 131/78 01/22/2024 1:19 PM CDT Pulse 74 01/22/2024 1:19 PM CDT Temperature 36.6 ??C (97.9 ??F) 01/22/2024 1:19 PM CD T Respiratory Rate 15 06/27/2022 11:10 AM DOOR ATTENDANT Oxygen Saturation 98% 01/22/2024 1:19 PM CDT Inhaled Oxygen Concentration - - Weight 83.5 kg (184 lb 1.4 oz) 01/22/2024 1:19 P M CDT Height 169.1 cm (5' 6.58) 01/22/2024 1:19 PM CD T Body Mass Index 29.2 01/22/2024 1:19 PM CDT Plan of Treatment Upcoming Encounters Date Type Department Care Team (Late st Contact Info) Description 03/12/2024 12:00 PM CDT Appointment Division of Gastroenterology in [place], [place] 200 [place] [phone] Keshawn Patino P.A.-C. 200 [place] [phone] Carmenza Robertson M.D. [address] [place] [phone] 03/17/2024 3:30 PM CDT Telemedicine Division of Colon and Rectal Surgery in [place], [place] [address] [place] [phone] Keshawn Patino P.A.-C. [address] [place] [phone] 03/24/2024 10:00 AM CDT Telemedicine Department of Medical Genetics in [place], [place] [address] [place] [phone] Minerva Irving M.D. [address] [place] [phone] Medical Devices Implanted Type Area Teacher Citizenship Device Identifier Shelf Expiration Date Model / Serial / Lot Hylrnds Rstyl 1ml - [id number] Implanted:Qt y: 1 on 08/03/2020 by Isidro Olmedo M.D. at [facility] Bone or Tissue Right: Vocal Cord [employer] Ana 11/15/2022 [id number] / / [id number] Description:1ml injection Hylrnds Rstyl 1ml - [id number] Implanted:Qt y: 1 on 11/29/2020 by Isidro Olmedo M.D. at [facility] Bone or Tissue Right: Vocal Cord [employer] Ana 04/17/2023 [id number] / / [id number] Breast Implant Breast Implant Bilatera l: Breast Description:04/18/2023 Prtcl Emb Cnt 355-500um - [id number] Implanted:Qt y: 1 on 07/31/2020 by Chato Pettit M.D., Ph.D. at [facility] Embolization Coil [employer] 02/28/2023 [id number] / / [id number] Prtcl Emblztn Pva Cnt 500-710 - [id number] Implanted:Qt y: 1 on 07/31/2020 by Chato Pettit M.D., Ph.D. at [facility] Embolization Coil [employer] 05/15/2023 [id number] / / [id number] Clp Apr Lgc Intnl Shrt 9.75 - [id number] Implanted:Qt y: 1 on 08/01/2020 by Jaime Serna M.D. at [facility] Hardware e.g. pins/screws/adriana s Left: Neck Ethicon [id number] / / Grft Nrv Neuragen Gd 1.5x3 - [id number] Implanted:Qt y: 1 on 08/01/2020 by Jaime Serna M.D. 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 SUITE FEV1 2.97 L 01/22/2024 3:[address] [facility] FEV1/FVC 78.49 % 01/22/2024 3:[address] [facility] CPZ03-12% 2.46 L/s 01/22/2024 3:[address] [facility] PEF PRE 6.02 L/s 01/22/2024 3:[address] [facility] PIF PRE 2.79 L/s 01/22/2024 3:[address] [facility] FEF 50 % FIF 50 PRE 100.53 % 01/22/2024 3:[address] [facility] FET PRE 9.12 sec 01/22/2024 3:[address] [facility] DLCO 20.98 ml/(min*mm Hg) 01/22/2024 3:[address] [facility] DLCOc 21.83 ml/(min*mm Hg) 01/22/2024 3:[address] [facility] HB 12.20 g(Hb)/dL 01/22/2024 3:[address] [facility] VA 5.45 L 01/22/2024 3:[address] [facility] 01/22/2024 9:[address] [facility] - 01/22/2024 3:15 PM CDT Within normal limits. Narrative Procedure Note Ramon Hernandez M.D., Ph.D. - 01/22/2024 IMPRESSION: Within normal limits. Zenaida Sheehan, B.Ch., B.A.O. PFT ORDERA BLES [facility] NA * (ABNORMAL) CBC with Differential, Blood (01/22/2024 8:09 AM CDT) Hemoglobin 12.2 11.6 - 15.0 g/dL 01/22/2024 9:14 AM CDT DTL Hematocrit 39.5 35.5 - 44.9 % 01/22/2024 9:14 AM CDT DTL Erythrocytes 4.59 3.92 - 5.13 x10(12)/L 01/22/2024 9:14 AM CDT DTL MCV 86.1 78.2 - 97.9 fL 01/22/2024 9:14 AM CDT DTL RBC Distrib Width 14.5 12.2 - 16.1 % 01/22/2024 9:14 AM CDT DTL Platelet Count 299 157 - 371 x10(9)/L 01/22/2024 9:14 AM CDT DTL Leukocytes 9.7(H) 3.4 - 9.6 x10(9)/L 01/22/2024 9:14 AM CDT DTL Neutrophils 6.84(H) 1.56 - 6.45 x10(9)/L 01/22/2024 9:14 AM CDT DHPM Lymphocytes 1.71 0.95 - 3.07 x10(9)/L 01/22/2024 9:14 AM CDT DTL Monocytes 0.72 0.26 - 0.81 x10(9)/L 01/22/2024 9:14 AM CDT DTL Eosinophils 0.30 0.03 - 0.48 x10(9)/L 01/22/2024 9:14 AM CDT DTL Basophils 0.09(H) 0.01 - 0.08 x10(9)/L 01/22/2024 9:14 AM CDT DTL Blood (Blood, Venous) 01/22/2024 8:09 AM CDT 01/22/2024 8:41 AM CDT Zenaida Sheehan, B.Emily., B.A.O. LAB BLOOD ADD-ON [facility] 200 [place] [address], [facility] DTL [facility] [address] [place] [address] [facility] [address] [place] [address] * Comprehensive Metabolic Panel (01/22/2024 8:09 AM CDT) Pathologist [facility] Potassium, S 4.6 3.6 - 5.2 mmol/L 01/22/2024 9:15 AM CDT DTL Sodium, S 142 135 - 145 mmol/L 01/22/2024 9:15 AM CDT DTL Chloride, S 106 98 - 107 mmol/L 01/22/2024 9:15 AM CDT DTL Bicarbonate, S 24 22 - 29 mmol/L 01/22/2024 9:15 AM CDT DTL Anion Gap 12 7 - 15 01/22/2024 9:15 AM CDT DTL BUN (Blood Urea Nitrogen), S 17 6 - 21 mg/dL 01/22/2024 9:15 AM CDT DTL Creatinine 0.94 0.59 - 1.04 mg/dL 01/22/2024 9:15 AM CDT DTL Estimated GFR (eGFR) 78 >=60 mL/min/BS A 01/22/2024 9:15 AM CDT DTL Comment: Estimated GFR calculated using the 2020 CKD_EPI creatinine equation. Calcium, Total, S 9.4 8.6 - 10.0 mg/dL 01/22/2024 9:15 AM CDT DTL Glucose, S 80 70 - 140 mg/dL 01/22/2024 9:15 AM CDT DTL Protein, Total, S 7.0 6.3 - 7.9 g/dL 01/22/2024 9:15 AM CDT DTL Albumin, S 4.5 3.5 - 5.0 g/dL 01/22/2024 9:15 AM CDT DTL Aspartate Aminotransferase (AST), S 13 8 - 43 U/L 01/22/2024 9:15 AM CDT DTL Alkaline Phosphatase, S 53 35 - 104 U/L 01/22/2024 9:15 AM CDT DTL Alanine Aminotransferase (ALT), S 12 7 - 45 U/L 01/22/2024 9:15 AM CDT DTL Bilirubin, Total, S 0.4 0.0 - 1.2 mg/dL 01/22/2024 9:15 AM CDT DTL Blood (Blood, Venous) 01/22/2024 8:09 AM CDT 01/22/2024 8:52 AM CDT Zenaida Sheehan, B.Emily., B.A.O. LAB BLOOD ADD-ON [facility] [address] [place] [address], [facility] DTL [facility] [address] [place] [address] * CT Chest without IV Contrast (01/22/2024 7:18 AM CDT) Anatomical Region Laterality Modality Chest, Thoracic RST LOS, Tho racic ARZ LOS, Thoracic FLA LOS N/A Computed Tomography, Compute d Tomography Impressions 01/22/2024 7:44 AM CDT Mild air trapping on expiratory imaging compatible with small airways disease. No evidence of interstitial lung disease. Narrative 01/22/2024 7:44 AM CDT EXAM: CT CHEST WITHOUT IV CONTRAST COMPARISON: PET/CT 06/14/[address] chest 06/06/2016 FINDINGS: Tiny nodule in the left lower lobe laterally (series 3, image 436) is unchanged since 06/06/2016 and should be benign. Tiny calcified granulomas. No new nodules. Scattered mild areas of air trapping bilaterally on expiratory imaging. Mild bilateral apical scarring, but no evidence of fibrotic interstitial lung disease. Scattered nodes in the chest without adenopathy. Small esophageal hiatal hernia. Bilateral breast implants. Mild hypertrophic changes in the spine. Probable bone islands in the T5 vertebral body and left sixth rib anteriorly. Procedure Note Pavan Serra M.D. - 01/22/2024 EXAM: CT CHEST WITHOUT IV CONTRAST COMPARISON: PET/CT 06/14/[address] chest 06/06/2016 FINDINGS: Tiny nodule in the left lower lobe laterally (series 3, image 436) isunchanged since 06/06/2016 and should be benign. Tiny calcifiedgranulomas. No new nodules. Scattered mild areas of air trapping bilaterally on expiratory imaging.Mild bilateral apical scarring, but no evidence of fibrotic interstitiallung disease. Scattered nodes in the chest without adenopathy. Small esophageal hiatalhernia. Bilateral breast implants. Mild hypertrophic changes in the spine. Probable bone islands in the [id number] body and left sixth rib anteriorly. IMPRESSION: Mild air trapping on expiratory imaging compatible with small airwaysdisease. No evidence of interstitial lung disease. Leonie Arroyo M.D., Ph.D. IMG C T PROCEDURES from Last 3 Months Advance Directives For more information, please contact: [phone] * Full Code (Latest Code Status on File) Date Activated Date Inactivated Comments 06/27/2022 10:21 AM 06/27/2022 1:34 PM Question Answer Comments Full Code: Not Discussed Due to: Patient not available * Full Code Date Activated Date Inactivated Comments 12/01/2020 11:22 AM 12/01/2020 8:24 PM Question Answer Comments Full Code: Discussed * Full Code Date Activated Date Inactivated Comments 08/01/2020 4:42 PM 08/04/2020 5:32 PM Question Answer Comments Full Code: Not Discussed Due to: Patient not available * Full Code Date Activated Date Inactivated Comments 07/31/2020 6:41 PM 08/01/2020 4:42 PM Question Answer Comments Full Code: Not Discussed Due to: Patient not available Care Teams High Worker Relationship Specialty Start Date End Date Elsewhere, Pcp PCP - General Family Medicine 05/03/21
--- OUTSIDE RECORDS SUMMARY | 2024-03-11 00:13 | XMS_ITS | Encounter Summary ---
[facility] Address [address] [place] [address] Care Team Providers Care Polishing Wheel Setter Name Role Phone Elsewhere, Pcp Primary Care Provider Unavailabl e Reason for Referral * MRI/CAT/PET Scan (Routine) - Closed Specialty Diagnoses / Procedures Referred By Contac t Referred To Contact Radiology Diagnoses Fibrosis Pulmonary (HCC) Procedures CT Chest without IV Contrast Zenaida Bender M.B., B.Ch., B.A.O. [facility] Referral ID Status Reason Start Date Expiration Date Visits Re quested Visits Authorized [id number] Closed 12/17/2023 12/16/2024 1 1 Reason for Visit * MRI/CAT/PET Scan (Routine) - Closed Specialty Diagnoses / Procedures Referred By Contac t Referred To Contact Radiology Diagnoses Fibrosis Pulmonary (HCC) Procedures CT Chest without IV Contrast Zenaida Bender M.B., B.Ch., B.A.O. [facility] Referral ID Status Reason Start Date Expiration Date Visits Re quested Visits Authorized [id number] Closed 12/17/2023 12/16/2024 1 1 Encounter Details Date Type Department Care Team (Latest Contact Info) Description 01/22/2024 6:46 AM CDT - 01/22/2024 7:48 AM CDT Hospital Encounter Department of Radiology, [facility], in [place], [place] [address] [place] [address] Leonie Junior M.D., Ph.D. [address] [place] [address] Fibrosis Pulmonary (HCC) Discharge Disposition: Home or Self Care Social History Tobacco Use Types Packs/Day Years Used Date Smoking Tobacco: Never Smokeless Tobacco: Never Alcohol Use Standard Drinks/Week Comments Yes 1 (1 standard drink = 0.6 oz pur e alcohol) Occasional only [facility] Utilities Answer Date Recorded In the past 12 months has e [employer], gas, oil, or water [employer] threatened to shut off services in your [...] week 12/31/2022 How often do you attend [facility] or lutheran services? More than 4 times per year 12/31/2022 Do you belong to any clubs o r organizations such as anglican groups, unions, fraternal or athletic groups, or [...] Answer Date Recorded PHQ-2 Score 0 10/24/2021 [facility] [...] CDT Gender Identity Female 07/12/2020 9:37 AM MANAGER WIRELESS Sexual Orientation Straight 07/12/2020 9: 37 AM MANAGER WIRELESS documented as of this encounter Medications at Time of Discharge Medication Sig Dispensed Refills Start Date End Date amLODIPine (NORVASC) 5 mg tablet Take 10 mg by mouth at bedtime. 10 mg 05/10/2020 buPROPion XL (WELLBUTRIN XL) 150 mg 24 hr tablet Take 150 mg by mouth daily. 03/12/2023 levothyroxine (SYNTHROID, LEVOTHROID) 100 mcg tablet Take 112 mcg by mouth daily. TAKE AT LEAST 1 HOUR BEFORE OR 2 HOURS AFTER A MEAL 05/07/2021 multivitamin tablet Take 1 tablet by mouth daily. propranoloL (INDERAL LA) 60 mg 24 hr capsuleIndications:Migrai ne Headache take 1 capsule by mouth every day 90 capsule 3 12/16/2023 rizatriptan RESORT KEEPER (MAXALT-RESORT KEEPER) 10 mg disintegrating tablet DISSOLVE 1 TABLET (10 MG TOTAL) IN THE MOUTH NEEDED FOR MIGRAINE. MAY REPEAT DOSE ONCE IN 2 HOURS IF MIGRAINE IS UNRESOLVED. DO NOT EXCEED 30 MG IN 24 HOURS. 12 tablet 10/24/2023 sertraline (ZOLOFT) 100 mg tablet Take 150 mg by mouth at bedtime. 08/19/2018 sod sulf-pot chloride-mag sulf (SUTAB) 1.479-0.188- 0.225 gram tablet Follow credit operations processor's instructions. SUTAB is a split-dose (2-day) regimen. You will take the tablets in two doses of 12 tablets each. Water (16 oz) must be consumed with each dose of SUTAB, and two additional tavarez (16 oz each) must be consumed after each dose. 24 tablet 12/24/2023 Ubrelvy 100 mg tablet tablet TAKE 1 TAB NEEDED FOR MIGRAINE. MAY REPEAT ONCE AFTER 2HR IF UNRESOLVED-DONT EXCEEDED 200MG/24 HR 10 tablet 10 10/24/2023 documented as of this encounter Plan of Treatment Upcoming Encounters Date Type Department Care Team (Late st Contact Info) Description 03/12/2024 12:00 PM CDT Appointment Division of Gastroenterology in [place], [place] [address] [place] [phone] Keshawn Patino P.A.-C. [address] [place] [phone] Carmenza Robertson M.D. [address] [place] [phone] 03/17/2024 3:30 PM CDT Telemedicine Division of Colon and Rectal Surgery in [address] [phone] Keshawn Patino P.A.-C. [address] [place] [phone] 03/24/2024 10:00 AM CDT Telemedicine Department of Medical Genetics in [place], [place] [address] [place] [phone] Minerva Irving M.D. [address] [place] [phone] documented as of this encounter Procedures Procedure Name Priority Date/Time Associated Diagnosis Comments CT CHEST WITHOUT IV CONTRAST RAD - Routine (most inpatients and all outpatients) 01/22/2024 7:18 AM CDT Fibrosis Pulmonary (HCC) documented in this encounter Results * CT Chest without IV Contrast (01/22/2024 [...] the spine. Probable bone islands in the [id number] body and left sixth rib anteriorly. IMPRESSION: Mild air trapping on expiratory imaging compatible with small airwaysdisease. No evidence of interstitial lung disease. Leonie Arroyo M.D., Ph.D. IMG C T PROCEDURES documented in this encounter Visit Diagnoses Diagnosis Fibrosis Pulmonary (HCC) documented in this encounter Additional Health Concerns Assessment Noted Time PHQ-9 Depression Total Score: 2 10/25/19 22 2:30 PM MANAGER WIRELESS documented as of this encounter Care Teams Polishing Wheel Setter Relationship Specialty Start Date End Date Elsewhere, Pcp PCP - General Family Medicine 05/03/21 documented as of this encounter
--- OUTSIDE RECORDS SUMMARY | 2024-03-11 00:13 | XMS_ITS | Encounter Summary ---
Author Organization [facility] Address [address] [place] [address] Care Team Providers Care Cigarette Tester Name Role Phone Elsewhere, Pcp Primary Care Provider Unavailabl e Encounter Details Date Type Department Care Team (Latest Contact Info) Description 01/22/2024 7:49 AM CDT - 01/22/2024 11:59 PM CDT Hospital Encounter Department of Laboratory Medicine and Pathology, [facility] in [place], [place] [address] [place] [phone] Leonie Junior M.D., Ph.D. [address] [place] [phone] Fibrosis Pulmonary (HCC) Discharge Disposition: Home or Self Care Social History Tobacco Use Types Packs/Day Years Used Date Smoking Tobacco: Never Smokeless Tobacco: Never Alcohol Use Standard Drinks/Week Comments Yes 1 (1 standard drink = 0.6 oz pur e alcohol) Occasional only [facility] Utilities Answer Date Recorded In the past 12 months has [facility] [employer], gas, oil, or water [employer] threatened to shut off services in your [...] How often do you attend chur or catholic services? More than 4 times per year 12/31/2022 Do you belong to any clubs o r organizations such as lutheran groups, unions, fraternal or athletic groups, or [...] Answer Date Recorded PHQ-2 Score 0 10/24/2021 [facility] of Occupat ional Health - Occupational Stress [...] your living situation today? I have a [facility] place to live 01/19/2024 Education Answer Date Recorded What is the highest level of school you have completed or the highest degree you have received? Bachelor's degree (e.g., BA, AB, BS) 06/08/2020 Sex and Gender Information Value Date Recorded Sex Assigned at Female 04/24/2021 2:13 PM CDT Gender Identity Female 07/12/2020 9:37 AM SALON STYLIST Sexual Orientation Straight 07/12/2020 9: 37 AM SALON STYLIST documented as of this encounter Medications at [...] 60 mg 24 hr capsuleIndications:Migra ine Headache take 1 capsule by mouth every day 90 capsule 3 12/16/2023 rizatriptan NURSING INFORMATICS ANALYST (MAXALT-NURSING INFORMATICS ANALYST) 10 mg disintegrating tablet DISSOLVE 1 TABLET (10 MG TOTAL) IN THE MOUTH NEEDED FOR MIGRAINE. MAY REPEAT DOSE ONCE IN 2 HOURS IF MIGRAINE IS UNRESOLVED. DO NOT EXCEED 30 MG IN 24 HOURS. 12 tablet 10/24/2023 sertraline (ZOLOFT) 100 mg tablet Take 150 mg by mouth at bedtime. 08/19/2018 sod sulf-pot chloride-mag sulf (SUTAB) 1.479-0.188- 0.225 gram tablet Follow robotic machine tender production's instructions. SUTAB is a split-dose (2-day) regimen. [...] EXCEEDED 200MG/24 HR 10 tablet 10 10/24/2023 albuterol 90 mcg/actuation inhaler Inhale 2 puffs every 6 (six) hours as needed for shortness of breath (Cough). 6.7 g 01/22/2024 02/16/2024 documented as of this encounter Plan of Treatment Upcoming Encounters Date Type Department Care Team (Late st Contact Info) Description 03/12/2024 12:00 PM CDT Appointment Division of Gastroenterology in [place], [place] [address] [place] [phone] Keshawn Patino P.A.-C. [address] [place] [phone] Carmenza Robertson M.D. [address] [place] [phone] 03/17/2024 3:30 PM CDT Telemedicine Division of Colon and Rectal Surgery in [place], [place] [address] [place] [phone] Keshawn Patino P.A.-C. [address] [place] [phone] 03/24/2024 10:00 AM CDT Telemedicine Department of Medical Genetics in [place], [place] [address] [place] [phone] Minerva Irving M.D. [address] [place] [phone] documented as of this encounter Procedures Procedure Name Priority Date/Time Associated Diagnosis Comments CBC WITH DIFFERENTIAL, B Routine 01/22/2024 8:09 AM CDT Fibrosis Pulmonary (HCC) COMPREHENSIVE METABOLIC PANEL, S/P Routine 01/22/2024 8:09 AM CDT Fibrosis Pulmonary (HCC) documented in this encounter Results * Comprehensive Metabolic Panel (01/22/2024 8:09 AM CDT) Potassium, S 4.6 3.6 - 5.2 mmol/L [...] CDT 01/22/2024 8:52 AM CDT Zenaida Sheehan, B.Ch., B.A.O. LAB BLOOD ADD-ON [facility] [address] [place] [address], [facility] [address] [place] [address] * (ABNORMAL) CBC with Differential, Blood (01/22/2024 [...] CDT 01/22/2024 8:41 AM CDT Zenaida Sheehan, B.Ch., B.A.O. LAB BLOOD ADD-ON [facility] [address] [place] [address], [facility] DTL [facility] [address] [place] [address] DHPM [facility] [address] [place] [address] documented in this encounter Visit Diagnoses Diagnosis Fibrosis Pulmonary (HCC) documented in this encounter Additional Health Concerns Assessment Noted Time PHQ-9 Depression Total Score: 2 10/25/19 22 2:30 PM SALON STYLIST documented as of this encounter Care Teams Cigarette Tester Relationship Specialty Start Date End Date Elsewhere, Pcp PCP - General Family Medicine 05/03/21 documented as of this encounter
--- OUTSIDE RECORDS SUMMARY | 2024-03-11 00:13 | XMS_ITS | Encounter Summary ---
Author Organization [facility] Address [address] [place] [address] Care Team Providers Care Electrician Refinery Name Role Phone Elsewhere, Pcp Primary Care Provider Unavailabl e Reason for Referral * Medication Prior Authorization - Closed Specialty Diagnoses / Procedures Referred By Leisa henderson Referred To Contact Leonie Junior M.D., Ph.D. [address] [place] [phone] Referral ID Status Reason Start Date Expiration Date Visits Re quested Visits Authorized [id number] Closed 1 1 Reason for Visit * Reason Comments Med Refill Encounter Details Date Type Department Care Team (Late st Contact Info) Description 02/14/2024 Refill Division of Pulmonary Medicine in [place], [place] [address] [place] [phone] Zenaida Bender M.B., B.Ch., B.A.O. Med Refill Social History Tobacco Use Types Packs/Day Years Used Date Smoking Tobacco: Never Smokeless Tobacco: Never Alcohol Use Standard Drinks/Week Comments Yes 1 (1 standard drink = 0.6 oz pur e alcohol) Occasional only [facility] Utilities Answer Date Recorded In the past [...] week 12/31/2022 How often do you attend [facility] or judaism services? More than 4 times per year 12/31/2022 Do you belong to any clubs o r organizations such as latter-day groups, unions, fraternal or athletic groups, or [...] Answer Date Recorded PHQ-2 Score 0 10/24/2021 [facility] of Occupat ional Health - Occupational Stress [...] your living situation today? I have a [facility] place to live 01/19/2024 Education Answer Date Recorded What is the highest level of school you have completed or the highest degree you have received? Bachelor's degree (e.g., BA, AB, BS) 06/08/2020 Sex and Gender Information Value Date Recorded Sex Assigned at Female 04/24/2021 2:13 PM CDT Gender Identity Female 07/12/2020 9:37 AM GPS NAVIGATION INSTALLER Sexual Orientation Straight 07/12/2020 9: 37 AM GPS NAVIGATION INSTALLER documented as of this encounter Miscellaneous Notes * Telephone Encounter - Mylene Dawn R.N. - 02/16/2024 12:03 PM CDT SUBJECTIVE CHIEF COMPLAINT/REASON FOR INTERACTION Prescription Renewal Request Prescription renewal request received for Albuterol HFA. ASSESSMENT/PLAN Patient was assessed per the Pulmonary and Critical Care Medicine Prescription Renewal Request protocol. Protocol does not apply due to: current request does not match provider plan of care. Provider input required. Prescription request forwarded to Dr. Kole Arroyo . documented in this encounter Plan of Treatment Upcoming Encounters Date Type Department Care Team (Late st Contact Info) Description 03/12/2024 12:00 PM CDT Appointment Division of Gastroenterology in [address] [phone] Keshawn Patino P.A.-C. [address] [place] [phone] Carmenza Robertson M.D. [address] [place] [phone] 03/17/2024 3:30 PM CDT Telemedicine Division of Colon and Rectal Surgery in [address] [phone] Keshawn Patino P.AJanis-CJanis [address] [place] [phone] 03/24/2024 10:00 AM CDT Telemedicine Department of Medical Genetics in [address] [phone] Minerva Irving M.D. [address] [place] [phone] documented as of this encounter Visit Diagnoses Not on filedocumented in this encounter Additional Health Concerns Assessment Noted Time PHQ-9 Depression Total Score: 2 10/25/19 22 2:30 PM GPS NAVIGATION INSTALLER documented as of this encounter Care Teams Electrician Refinery Relationship Specialty Start Date End Date Elsewhere, Pcp PCP - General Family Medicine 05/03/21 documented as of this encounter
--- OUTSIDE RECORDS SUMMARY | 2024-03-11 00:13 | XMS_ITS | Clinical Summary ---
Author Organization [facility] Address [address] [place] [address] Care Team Providers Care Intake Clinician Name Role Phone Elsewhere, Pcp Primary Care Provider Unavailabl e Source Comments Patient records contain information from all sites at [facility]. For routine questions regarding patient records, call [phone] during business hours, M-F 8:00 AM - 5:00 PM Central Time. Record requests for emergency care only can be directed to [phone] at any time.[facility] Allergies Active Allergy Reactions Criticality Noted [...] HR 10 tablet 10 10/24/2023 Active rizatriptan GRADING MACHINE FEEDER (MAXALT-GRADING MACHINE FEEDER) 10 mg disintegrating tablet DISSOLVE 1 TABLET [...] sulf (SUTAB) 1.479-0.188- 0.225 gram tablet Follow tax services intern's instructions. SUTAB is a split-dose (2-day) regimen. 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 Takes sertraline. 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 Echo in 06/2016 Encounters Date Type Department Care Team Description 03/08/2024 4:00 PM CDT Clinical Communication Virtual Review in [address] [phone] Pre-visit Intake 02/14/2024 Refill Division of Pulmonary Medicine in [address] [phone] Zenaida Bender M.B., B.Ch., B.A.O. Med Refill 01/22/2024 1:30 PM CDT Comprehensive Visit Division of Pulmonary Medicine in [address] [phone] Michelle Suarez M.D. Zenaida Bender M.B., B.Ch., B.A.O. Other Disorders Of Lung 01/22/2024 7:49 AM CDT - 01/22/2024 11:59 PM CDT Hospital Encounter Department of Laboratory Medicine and Pathology, [address] [phone] Leonie Junior M.D., Ph.D. Fibrosis Pulmonary (HCC) Discharge Disposition: Home or Self Care 01/22/2024 6:46 AM CDT - 01/22/2024 7:48 AM CDT Hospital Encounter Department of Radiology, [place], [place] [address] [place] [phone] Leonie Junior M.D., Ph.D. Fibrosis Pulmonary (HCC) Discharge Disposition: Home or Self Care 01/21/2024 9:45 AM CDT Clinical Communication Virtual Review in [address] [phone] Previsit Preparation (GAR[place]ON DD) 12/30/2023 12:20 PM CDT - 12/30/2023 11:59 PM CDT Hospital Encounter Department of Laboratory Medicine and Pathology, [facility], in [place], [place] [address] [place] [phone] Minerva Irving M.D. Hypertension Essential Primary; Paraganglioma (HCC) Discharge Disposition: Home or Self Care 12/30/2023 11:00 AM CDT Office Visit Department of Medical Genetics in [place], [place] [address] [place] [phone] Minevra Irving M.D. Paraganglioma (HCC) (Primary Dx); Hypertension Essential Primary 12/24/2023 Orders Only Division of Colon and Rectal Surgery in [place], [place] [address] [place] [phone] Keshawn Patino, P.A.-C. 12/22/2023 Orders Only Division of Colon and Rectal Surgery in [place], [place] [address] [place] [phone] Keshawn Patino, P.A.-C. 12/22/2023 Clinical Communication Division of Colon and Rectal Surgery in [place], [place] [address] [place] [phone] Keshawn Patino, P.A.-C. Pre-visit Testing Orders (Colonoscopy prep) 12/22/2023 Clinical Communication Division of Colon and Rectal Surgery in [place], [place] [address] [place] [phone] Keshawn Patino, P.A.-C. 12/17/2023 Orders Only Division of Pulmonary Medicine in [place], [place] [address] [place] [phone] [facility], Provider Fibrosis Pulmonary (HCC) 12/16/2023 [facility] Orders [facility] [address] [place] [address] Michelle Suarez M.D. Other Disorders Of Lung (Primary Dx) 12/14/2023 Refill Department of Neurology in [place], [place] [address] [place] [phone] Avinash Alas M.D. Med Refill from Last 3 Months Immunizations Name Administration Dates Next Due SARS-COV-2 (COVID-19) - PFIZ ER (Discontinued)(12 years or older) 07/10/2021 influenza vaccine quad (FLUZ ONE/FLUARIX) (6 months and older)(PF) 07/10/2021,08/01/2020 Family History Medical History Relation Name Comments Sleep apnea Brother 1 Naseem Mccarty Migraines Brother 2 Avinash Mccarty Alcohol abuse Father Gage Mccarty Coronary artery [...] 0.6 oz pur e alcohol) Occasional only [facility] Utilities Answer Date Recorded In the past 12 months has e [employer], gas, oil, or water [email or web address] threatened to shut off services in your [...] often do you attend chur ch or yarsani services? More than 4 times per year [...] Answer Date Recorded PHQ-2 Score 0 10/24/2021 [facility]ational Stress Questionnaire Answer Date [...] your living situation today? I have a [facility] place to live 01/19/2024 Education Answer Date Recorded What is the highest level of school you have completed or the highest degree you have received? Bachelor's degree (e.g., BA, AB, BS) 06/08/2020 Sex and Gender Information Value Date Recorded Sex Assigned at Female 04/24/2021 2:13 PM CDT Gender Identity Female 07/12/2020 9:37 AM AIRCRAFT MAINTENANCE INSTRUCTOR Sexual Orientation Straight 07/12/2020 9: 37 AM AIRCRAFT MAINTENANCE INSTRUCTOR Last Filed Vital Signs Vital Sign Reading Time Taken Comments Blood Pressure 131/78 01/22/2024 1:19 PM CDT Pulse 74 01/22/2024 1:19 PM CDT Temperature 36.6 ??C (97.9 ??F) 01/22/2024 1:19 PM CD T Respiratory Rate 15 06/27/2022 11:10 AM AIRCRAFT MAINTENANCE INSTRUCTOR Oxygen Saturation 98% 01/22/2024 1:19 PM CDT [...] PM CDT Appointment Division of Gastroenterology in [place], [place] [address] [place] [phone] Keshawn Patino P.A.-C. [address] [place] [phone] Carmenza Robertson M.D. [address] [place] [phone] 03/17/2024 3:30 PM CDT Telemedicine Division of Colon and Rectal Surgery in [place], [place] [address] [place] [phone] Keshawn Patino P.A.-C. [address] [place] [phone] 03/24/2024 10:00 AM CDT Telemedicine Department of Medical Genetics in [place], [place] [address] [place] [phone] Minerva Irving M.D. [address] [place] [phone] Health Maintenance Due Date Last Done Comments Cervical Cancer Screening 1982 HIV Screening 1982 Hepatitis C Screening 1982 Lipid (Cholesterol) Screening 1982 Mammogram 1982 Thyroid Stimulating Hormone (TSH) test for thyroid function 1982 Pneumococcal vaccine (0-64 years) (1 of 2 - PCV) 1988 Hepatitis B Vaccines (1 of 3 - 19+ 3-dose series) 2001 Zoster Vaccines (1 of 2) 2001 COVID-19 Vaccine (4 - 2022- season) 2023 07/10/2021, 12/12/2020, 11/14/2020 Depression Screening (Annual PHQ-2) 08/18/2023 Influenza Vaccine (#1) 2024 3, 07/10/2021, 08/01/2020, Additional history exists Office Visit for Blood Pressure Check / Re-check 01/21/2025 01/22/2024 DTaP,Tdap,and Td Vaccines (3 - Td or Tdap) 08/09/2029 08/09/2019, 09/10/2012 HPV Vaccines Aged Out No longer eligi ble based on patient's age to complete this topic Medical Devices Implanted Type Area Manager Ecommerce Device Identifier Shelf Expiration Date Model / Serial / Lot Hylrnds Rstyl 1ml - [id number] Implanted:Qt y: 1 on 08/03/2020 by Isidro Olmedo M.D. at [facility] Bone or Tissue Right: Vocal Cord [employer] Ana 11/15/2022 [id number] / / [id number] Description:1ml injection Hylrnds Rstyl 1ml - [id number] Implanted:Qt y: 1 on 11/29/2020 by Isidro Olmedo M.D. at [facility] Bone or Tissue Right: Vocal Cord [employer] Ana 04/17/2023 [id number] / / [id number] Breast Implant Breast Implant Bilatera l: Breast Description:04/18/2023 Prtcl Emb Cnt 355-500um - [id number] Implanted:Qt y: 1 on 07/31/2020 by Chato Pettit M.D., Ph.D. at [facility] Embolization Coil [employer] 02/28/2023 [id number] / / [id number] Prtcl Emblztn Pva Cnt 500-710 - [id number] Implanted:Qt y: 1 on 07/31/2020 by Chato Pettit M.D., Ph.D. at [facility] Embolization Coil [employer] 05/15/2023 [id number] / / [id number] Clp Apr [facility] 9.75 - [id number] Implanted:Qt y: 1 on 08/01/2020 by Jaime Serna M.D. at [facility] Hardware e.g. pins/screws/adriana s Left: Neck Ethicon [id number] [id number] / / Grft Nrv Neuragen Gd 1.5x3 - [id number] Implanted:Qt y: 1 on 08/01/2020 by Jaime Serna M.D. at [facility] Mesh or Patch Integra 04/17/2022 [id number] / / [id number] Misc Other Misc Other Midline: Mouth Description:Permanent [...] FVC 3.78 L 01/22/2024 3:15 PM CDT [facility] FEV1 2.97 L 01/22/2024 3:15 PM CDT [facility] FEV1/FVC 78.49 % 01/22/2024 3:15 PM CDT [facility] UNB31-44% 2.46 L/s 01/22/2024 3:15 PM CDT [facility] PEF PRE 6.02 L/s 01/22/2024 3:15 PM CDT [facility] PIF PRE 2.79 L/s 01/22/2024 3:15 PM CDT [facility] FEF 50 % FIF 50 PRE 100.53 % 01/22/2024 3:15 PM CDT [facility] FET PRE 9.12 sec 01/22/2024 3:15 PM CDT [facility] DLCO 20.98 ml/(min*mm Hg) 01/22/2024 3:15 PM CDT [facility] DLCOc 21.83 ml/(min*mm Hg) 01/22/2024 3:15 PM CDT [facility] HB 12.20 g(Hb)/dL 01/22/2024 3:15 PM CDT [facility] VA 5.45 L 01/22/2024 3:15 PM CDT [facility] 01/22/2024 9:20 AM CDT Impressions [facility] - 01/22/2024 3:15 PM CDT Within normal limits. Narrative Procedure Note Ramon Hernandez M.D., Ph.D. - 01/22/2024 IMPRESSION: Within normal limits. Zenaida Sheehan, B.Ch., B.A.O. PFT ORDERA BLES [facility] NA * (ABNORMAL) CBC with Differential, Blood [...] Zenaida Sheehan, B.Ch., B.A.O. LAB BLOOD ADD-ON [facility] [address] [place] [address], [facility] DTL [facility] [address] [place] [address] * Comprehensive Metabolic Panel (01/22/2024 8:09 AM CDT) Pathologist [facility] Potassium, S 4.6 3.6 - 5.2 mmol/L [...] Zenaida Sheehan, B.Ch., B.A.O. LAB BLOOD ADD-ON [facility] [address] [place] [address], [facility] DTL [facility] [address] [place] [address] * CT Chest without IV Contrast (01/22/2024 [...] the spine. Probable bone islands in the D5xvradcmuy body and left sixth rib anteriorly. IMPRESSION: Mild air trapping on expiratory imaging compatible with small airwaysdisease. No evidence of interstitial lung disease. Leonie Arroyo M.D., Ph.D. IMG C T PROCEDURES from Last 3 Months Advance Directives For more information, please contact: [phone] * Full Code (Latest Code Status on [...] Due to: Patient not available Care Teams Intake Clinician Relationship Specialty Start Date End Date Elsewhere, Pcp PCP - General Family Medicine 05/03/21
--- OUTSIDE RECORDS SUMMARY | 2024-03-11 00:13 | XMS_ITS ---
Author Organization [facility] Address [address] [place] [address] Care Team Providers Care Medical Laboratory Assistant Name Role Phone Unavailable Unavailable Unavailable Surgery Details Not on file Complications Check Surgery Details section. Procedure Estimated Blood Loss Check Surgery Details section. Procedure Findings Check Surgery Details section. Procedure Specimens Taken Check Surgery Details section.
--- OUTSIDE RECORDS SUMMARY | 2024-03-11 00:14 | XMS_ITS | Encounter Summary ---
Author Organization [facility] Address [address] [place] [address] Care Team Providers Care Signal Timer Name Role Phone Elsewhere, Pcp Primary Care Provider Unavailabl e Reason for Visit * Appointment Request (Routine) - Closed Specialty Diagnoses / Procedures Referred By Leisa t Referred To Contact Pulmonary Medicine Diagnoses Fibrosis Pulmonary (HCC) Shortness Of Breath Chronic Cough Referral ID Status Reason Start Date Expiration Date Visits Re quested Visits Authorized [id number] Closed 12/17/2023 12/16/2024 1 1 Encounter Details Date Type Department Care Team (Latest Contact Info) Description 01/22/2024 1:30 PM CDT Comprehensive Visit Division of Pulmonary Medicine in [place], [place] [address] [place] [address] Michelle Suarez M.D. [address] [place] [phone] Zenaida Bender M.B., B.Ch., B.A.O. Other Disorders Of Lung Social History Tobacco Use Types Packs/Day Years Used Date Smoking Tobacco: Never Smokeless Tobacco: Never Alcohol Use Standard Drinks/Week Comments Yes 1 (1 standard drink = 0.6 oz pur e alcohol) Occasional only [facility] Utilities Answer Date Recorded In the past 12 months has th e electric, gas, oil, or water company [...] How often do you attend chur or lutheran services? More than 4 times [...] Date Recorded PHQ-2 Score 0 10/24/2021 [facility] - Occupational [...] your living situation today? I have a [facility] place to live 01/19/2024 Education Answer Date Recorded What is the highest level of school you have completed or the highest degree you have received? Bachelor's degree (e.g., BA, AB, BS) 06/08/2020 Sex and Gender Information Value Date Recorded Sex Assigned at Female 04/24/2021 2:13 PM CDT Gender Identity Female 07/12/2020 9:37 AM DRAGGER Sexual Orientation Straight 07/12/2020 9: 37 AM DRAGGER documented as of this encounter Last Filed Vital Signs Vital Sign Reading Time Taken Comments Blood Pressure 131/78 01/22/2024 1:19 PM CDT Pulse 74 01/22/2024 1:19 PM CDT Temperature 36.6 ??C (97.9 ??F) 01/22/2024 1:19 PM CD T Respiratory Rate - - Oxygen Saturation 98% 01/22/2024 1:19 PM CDT Inhaled Oxygen Concentration - - Weight 83.5 kg (184 lb 1.4 oz) 01/22/2024 1:19 P M CDT Height 169.1 cm (5' 6.58) 01/22/2024 1:19 PM CD T Body Mass Index 29.2 01/22/2024 1:19 PM CDT documented in this encounter Consult Notes * Zenaida Bender M.B., B.Ch., B.A.O. - 01/22/2024 1:30 PM CDT SUBJECTIVE REASON FOR CONSULT Concern regarding scarring at lung bases detected incidentally on CT abdomen pelvis Referred by: Dr Lexi Suarez M.D. HISTORY OF PRESENT ILLNESS Lisa Bains is a pleasant 43 y.o. year old female who presents for evaluation following detection of possible fibrosis at the lung bases. 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 No acute consolidation was identified, but no specific comments were made regardingpossible pulmonary fibrosis. The image was over-read by [facility] on 09/23/2023, with the report mentioning slight fibrosis in both lung bases. Given concern for fibrotic lung disease due to her her significant exposure to secondhand smoke throughout childhood and adolescence, and family history of lung cancer, she presents to [facility] for further evaluation. On Review: She attends clinic with her Dilip today. She first noticed respiratory symptoms of cough and exertional dyspnea following for paraganglioma surgery in July 2020. Her cough is predominantly nonproductive, but can also be productive. It is triggered in particular by cold air, which also produces wheeze and a sense of the airways closingup. Other triggers for cough includes strenuous exercise, and eating food quickly. Of note, due to right vagal nerve paralysis post-surgery, she has had some problems with swallowing. She has also noticed more phlegm build up in her throat. No significant post nasal drip. She has GERD but has not had significant acid reflux. Her dyspnea is most pronounced with moderate exertion, such as going up a flight of stairs or running around after her 6 years old. Sometimes, she will also have shallow breathing independent of exertion. No dyspnea with ADLs, or at rest. No chest pain, fevers, weight loss, or new lymphadenopathy. No asthma or recurrent pneumonias in childhood. No prior inhaler use. Family history: Her family history is significant for emphysema and lung cancer in her maternal grandmother, who was diagnosed in her 80s. Her mother from lung cancer at age 62, but she was a heavy smoker. Her father of a heart attack at age 50. No family history of interstitial lung disease or autoimmune conditions. Social history: Her father and mother each smoked a least a pack a day, and she was exposed to significant secondhand smoke for the first 22 years of her life. Later on in her childhood, her mother remarried, and her stepfather was also a smoker. She mentions that there would be significant smoke/soot covering thefurnishings at home. Her parents also smoked in the car with the windows up when she was growing up. She is currently a [id number] mom, and resides with her and 4-year-old son in [place], [place]. She previously worked as a teacher. No significant occupational exposures to dust,, silica, or asbestos. No pets. No regular exposure to birds, hay, or molds. She is a never smoker. Medications: Current Outpatient Medications Medication Instructions albuterol 90 mcg/actuation inhaler 2 puffs, inhalation, Every 6 hours PRN amLODIPine (NORVASC) 10 mg, oral, Daily at bedtime, 10 mg buPROPion XL (WELLBUTRIN XL) 150 mg, oral, Daily levothyroxine (SYNTHROID, LEVOTHROID) 112 mcg, oral, Daily, TAKE AT LEAST 1 HOUR BEFORE OR 2 HOURS AFTER A MEAL multivitamin tablet 1 tablet, oral, Daily propranoloL (INDERAL LA) 60 mg, oral, Daily rizatriptan MANAGER RESTAURANT (MAXALT-MANAGER RESTAURANT) 10 mg, oral, As needed, May repeat dose once in 2 hours if migraine isunresolved. Do not exceed 30 mg in 24 hours. sertraline (ZOLOFT) 150 mg, oral, Daily at bedtime sod sulf-pot chloride-mag sulf (SUTAB) 1.479-0.188- 0.225 gram tablet Follow supervisor core shop's instructions. SUTAB is a split-dose (2-day) regimen. You will take the tablets in two doses of 12 tablets each. Water (16 oz) must be consumed with each dose of SUTAB, and two additional tavarez (16 oz each) must be consumed after each dose. Ubrelvy 100 mg tablet tablet TAKE 1 TAB NEEDED FOR MIGRAINE. MAY REPEAT ONCE AFTER 2HR IF UNRESOLVED-DONT EXCEEDED 200MG/24 HR The following portions of the patient's history were reviewed and updated as appropriate: allergies, current medications, family history, medical history, social history, surgical history, and problem list. REVIEW OF SYSTEMS Pertinent items are noted in HPI; all other review of systems was negative. OBJECTIVE VITAL SIGNS BP 131/78 (BP Location: Right arm, Patient Position: Sitting, Cuff Size: Regular) Pulse 74 Temp36.6 ??C (Temporal) Ht 169.1 cm Wt 83.5 kg SpO2 98% BMI 29.20 kg/m?? PHYSICAL EXAM General: Alert, interactive, well-nourished female, good color for complexion, ventilating comfortably on room air without respiratory distress. Hands: No clubbing. Eyes: No conjunctival icterus or injection. PERRL. Lymph nodes: No cervical lymphadenopathy. Lungs: Good air entry bilaterally, with vesicular breath sounds throughout. No wheezes, crackles, or rhonchi. Cardiovascular: Pulse regular and non-tachycardic. Heart sounds were dual with grade 3 pansystolic murmur in the aortic area, consistent with known congenital cardiac murmur. No added sounds or gallops. Abdomen: Nondistended. Abdomen is soft and non-tender on light and deep palpation. No hepatosplenomegaly. No rebound or rigidity. Normoactive bowel sounds. Skin: No rashes, lesions, or purpura observed. Peripheries: No peripheral edema. Psychiatry: Alert and oriented. Mood and affect congruent. No disorganization. DIAGNOSTIC REVIEW I have reviewed the patient's current laboratory, imaging, and other diagnostic studies. Pulmonary Functions Testing Results: FEV1 Date Value Ref Range Status 01/22/2024 2.97 L Final FVC Date Value Ref Range Status 01/22/2024 3.78 L Final FEV1/FVC Date Value Ref Range Status 01/22/2024 78.49 % Final DLCO Date Value Ref Range Status 01/22/2024 20.98 ml/(min*mmHg) Final SpO2 Readings from Last 3 Encounters: 06/27/22 100% 05/03/21 100% 12/01/[address] Chest 01/22/2024: FINDINGS: Tiny nodule in the left lower [...] vertebral body and left sixth rib anteriorly. IMPRESSION: Mild air trapping on expiratory imaging compatible with small airways disease. No evidence of interstitial lung disease. CT Abdomen-Pelvis over-read 09/23/2023: FINDINGS: Extensive diverticulosis involving the entire colon. The liver, adrenals, pancreas, gallbladder and kidneys are negative. Mild splenomegaly. Small hiatal hernia. Slight fibrosis in both lung bases. Bilateral breast implants. Splenules. The previously seen changes of acute uncomplicated diverticulitis involving the descending colon are not present on this study. The free fluid seen on the prior study within the pelvis as resolved. Remainder unchanged. 06/21/2016: 1. Normal echocardiogram. 2. Normal left ventricular chamber size. Calculated left ventricular ejection fraction 62%. 3. No regional wall motion abnormalities. 4. Normal left ventricular diastolic function. 5. Normal right ventricular size and systolic function. Estimated right ventricular systolic pressure 21 mmHg. 6. Normal cardiac valves. 7. No pericardial effusion ASSESSMENT / PLAN #Significant exposure to secondhand smoke during childhood and adolescence #No evidence of fibrosis or interstitial lung disease on CT thorax #Normal spirometry, lung volumes, and diffusing capacity on pulmonary function testing #Possible reactive airways disease Mrs. Lisa Bains is a nata 43-year-old lady who presents to the pulmonology clinic for evaluation of possible bibasilar lung fibrosis identified incidentally on CT abdomen pelvis performed inDeceer 2022. She has a strong family history of lung cancer, and significant exposure to secondhand smoke in the first 20 years of her life. Pulmonary auscultation today was normal. Her pulmonary function testing demonstrated normal lung volumes and spirometry, with no restrictive abnormalities. High-resolution CT thorax showed bilateral apical scarring, which has been present since 2016 and is unchanged; a tiny nodule in the left lower lobe, again, unchanged; small calcified granulomas, and no evidence of fibrotic interstitial lung disease. She endorses a 4-year history of cough that is often triggered by exercise and cold air. She also has dyspnea on moderate exertion which can sometimes be associated with wheeze. Although FEV1, FVC, and FEV/FVC were normal, there was some air trapping seen in the expiratory phase on CT thorax, and given her history of secondhand smoke exposure, I wonder if she does have some element of reactive airways disease. Habitual cough is another potential explanation for tussis. Thankfully, there is no major structural cause for her shortness of breath. We discussed the potential of performing bronchoprovocation testing with methacholine, and its limitation. The alternative is a trial of albuterol inh aler to see if this improves her symptoms. Mrs Bains was happy to proceed with trying albuterol. We spoke about how it is often difficult for us to exactly prognosticate an individual's risk of developing lung disease following exposure to secondhand smoke. It is reassuring that apart from some biapical scarring, which has been stable over the last 8 years, there is no evidence of emphysema, chronic bronchitis, or fibrosis in her lungs. I recommended that she continue to monitor her symptoms, and that if she develops worsening cough, profound dyspnea, or other additional worrying symptoms like chest pain, then re-evaluation at that stage would be very reasonable. Plan: - Trial of albuterol inhaler 90mcg 2 puffs up to QID PRN - Return to clinic as required. The visit was staffed with Dr Kole M.D., who was present during blanca aspects of the evaluation and clinical decision making process today. All questions were answered, hopefully to the satisfaction of the patient. It was a pleasure meeting Mrs. Lisa Bains and her today. Halina Ramsay., B.Ch., B.A.O. Resident Associated attestation - Leonie Junior M.D., Ph.D. - 01/22/2024 5:13 PM CDT I saw and evaluated the patient, participating in the blanca portions of the service. I reviewed the resident/fellow???s note. I agree with the resident/fellow???s findings and plan. documented in this encounter Plan of Treatment Upcoming Encounters Date Type Department Care Team (Late st Contact Info) Description 03/12/2024 12:00 PM CDT Appointment Division of Gastroenterology in [address] [phone] Keshawn Patino P.A.-C. [address] [place] [phone] Carmenza Robertson M.D. [address] [place] [phone] 03/17/2024 3:30 PM CDT Telemedicine Division of Colon and Rectal Surgery in [address] [phone] Keshawn Patino P.A.-C. [address] [place] [phone] 03/24/2024 10:00 AM CDT Telemedicine Department of Medical Genetics in [address] [phone] Minerva Irving M.D. [address] [place] [phone] documented as of this encounter Visit Diagnoses Diagnosis Other Disorders Of Lung documented in this encounter Additional Health Concerns Assessment Noted Time PHQ-9 Depression Total Score: 2 10/25/19 22 2:30 PM DRAGGER documented as of this encounter Care Teams Signal Timer Relationship Specialty Start Date End Date Elsewhere, Pcp PCP - General Family Medicine 05/03/21 documented as of this encounter
--- OUTSIDE RECORDS SUMMARY | 2024-03-11 00:14 | XMS_ITS | Encounter Summary ---
Author Organization [facility] Address [address] [place] [address] Care Team Providers Care Wood Milling Machine Operator Name Role Phone Elsewhere, Pcp Primary Care Provider Unavailabl e Reason for Visit * Reason Onset Date Comments Previsit Preparation 01/21/2024 GRAYSON DD Encounter Details Date Type Department Care Team (Latest Contact Info) Description 01/21/2024 9:45 AM CDT Clinical Communication Virtual Review in [place], [place] [address] [place] [phone] Previsit Preparation (GRAYSON DD) Social History Tobacco Use Types Packs/Day Years Used Date Smoking Tobacco: Never Smokeless Tobacco: Never Tobacco Cessation:Counseling Given: Not Answered Alcohol Use Standard Drinks/Week Comments Yes 1 (1 standard drink = 0.6 oz pur e alcohol) Occasional only [facility] Utilities Answer Date Recorded In the past [...] often do you attend chur ch or rastafari services? More than 4 times per year 12/31/2022 Do you belong to any clubs o r organizations such as uatsdin groups, unions, fraternal or athletic groups, or [...] Answer Date Recorded PHQ-2 Score 0 10/24/2021 [facility] - [...] Answer Date Recorded Employment status Unemployed/not in [facility] paid workforce and NOT seeking employment 01/19/2024 Housing Stability Answer Date Recorded What is your living situation today? I have a [facility] place to live 01/19/2024 Education Answer Date Recorded What is the highest level of school you have completed or the highest degree you have received? Bachelor's degree (e.g., BA, AB, BS) 06/08/2020 Sex and Gender Information Value Date Recorded Sex Assigned at Female 04/24/2021 2:13 PM CDT Gender Identity Female 07/12/2020 9:37 AM AUTOMOBILE UPHOLSTERER Sexual Orientation Straight 07/12/2020 9: 37 AM AUTOMOBILE UPHOLSTERER documented as of this encounter Plan of Treatment Upcoming Encounters Date Type Department Care Team (Late st Contact Info) Description 03/12/2024 12:00 PM CDT Appointment Division of Gastroenterology in [place], [place] 200 [place] [phone] Keshawn Patino P.A.-C. 200 [place] [phone] Carmenza Robertson M.D. 200 [place] [phone] 03/17/2024 3:30 PM CDT Telemedicine Division of Colon and Rectal Surgery in [place], [place] [address] [place] [phone] Keshawn Patino P.A.-C. [address] [place] [phone] 03/24/2024 10:00 AM CDT Telemedicine Department of Medical Genetics in [place], [place] [address] [place] [phone] Minerva Irving M.D. [address] [place] [phone] documented as of this encounter Visit Diagnoses Not on filedocumented in this encounter Additional Health Concerns Assessment Noted Time PHQ-9 Depression Total Score: 2 10/25/19 22 2:30 PM AUTOMOBILE UPHOLSTERER documented as of this encounter Care Teams Wood Milling Machine Operator Relationship Specialty Start Date End Date Elsewhere, Pcp PCP - General Family Medicine 05/03/21 documented as of this encounter
--- OUTSIDE RECORDS SUMMARY | 2024-03-11 00:14 | XMS_ITS | Encounter Summary ---
Author Organization [facility] Address [address] [place] [address] Care Team Providers Care Mud Tank Operator Name Role Phone Elsewhere, Pcp Primary Care Provider Unavailabl e Encounter Details Date Type Department Care Team (Late st Contact Info) Description 12/22/2023 Orders Only Division of Colon and Rectal Surgery in [place], [place] [address] [place] [phone] Keshawn Patino, PDalila-Iván. [address] [place] [phone] Social History Tobacco Use Types Packs/Day Years [...] How often do you attend chur or muslim services? More than 4 times per year 12/31/2022 Do you belong to any clubs o r organizations such as yazidi groups, unions, fraternal or athletic groups, or [...] Date Recorded PHQ-2 Score 0 10/24/2021 [facility] [place] - Occupational Stress Questionnaire Answer Date Recorded [...] CDT Gender Identity Female 07/12/2020 9:37 AM CHECKERING MACHINE OPERATOR Sexual Orientation Straight 07/12/2020 9: 37 AM CHECKERING MACHINE OPERATOR documented as of this encounter Plan of Treatment Upcoming Encounters Date Type Department Care Team (Late st Contact Info) Description 03/12/2024 12:00 PM CDT Appointment Division of Gastroenterology in [place], [place] [address] [place] [phone] Keshawn Patino P.A.-C. [address] [place] [phone] Carmenza Robertson M.D. [address] [place] [phone] 03/17/2024 3:30 PM CDT Telemedicine Division of Colon and Rectal Surgery in [place], [place] [address] [place] [phone] Keshawn Patino P.A.-C. [address] [place] [phone] 03/24/2024 10:00 AM CDT Telemedicine Department of Medical Genetics in [place], [place] [address] [place] [phone] Minerva Irving M.D. [address] [place] [phone] documented as of this encounter Visit Diagnoses Not on filedocumented in this encounter Additional Health Concerns Assessment Noted Time PHQ-9 Depression Total Score: 2 10/25/19 22 2:30 PM CHECKERING MACHINE OPERATOR documented as of this encounter Care Teams Mud Tank Operator Relationship Specialty Start Date End Date Elsewhere, Pcp PCP - General Family Medicine 05/03/21 documented as of this encounter
--- OUTSIDE RECORDS SUMMARY | 2024-03-11 00:14 | XMS_ITS | Encounter Summary ---
Author Organization [facility] Address [address] [place] [address] Care Team Providers Care Carroter Name Role Phone Elsewhere, Pcp Primary Care Provider Unavailabl e Encounter Details Date Type Department Care Team (Latest Contact Info) Description 12/30/2023 12:20 PM CDT - 12/30/2023 11:59 PM CDT Hospital Encounter Department of Laboratory Medicine and Pathology, [facility] in [place], [place] [address] [place] [phone] Minerva Irving M.D. [address] [place] [phone] Hypertension Essential Primary; Paraganglioma (HCC) Discharge Disposition: [...] any clubs o r organizations such as pentecostalism groups, unions, fraternal or athletic groups, or [...] Answer Date Recorded PHQ-2 Score 0 10/24/2021 [facility] - Occupational [...] CDT Gender Identity Female 07/12/2020 9:37 AM WATERPROOF BAG CUTTING MACHINE OPERATOR Sexual Orientation Straight 07/12/2020 9: 37 AM WATERPROOF BAG CUTTING MACHINE OPERATOR documented as of this encounter Medications at [...] every day 90 capsule 3 12/16/2023 rizatriptan LEHR TENDER (MAXALT-LEHR TENDER) 10 mg disintegrating tablet DISSOLVE 1 TABLET (10 MG TOTAL) IN THE MOUTH NEEDED FOR MIGRAINE. MAY REPEAT DOSE ONCE IN 2 HOURS IF MIGRAINE IS UNRESOLVED. DO NOT EXCEED 30 MG IN 24 HOURS. 12 tablet 10/24/2023 sertraline (ZOLOFT) 100 mg tablet Take 150 mg by mouth at bedtime. 08/19/2018 sod sulf-pot chloride-mag sulf (SUTAB) 1.479-0.188- 0.225 gram tablet Follow gas flow regulator's instructions. SUTAB is a split-dose (2-day) regimen. [...] EXCEEDED 200MG/24 HR 10 tablet 10 10/24/2023 topiramate (TOPAMAX) 100 mg tablet TAKE 1 TABLET BY MOUTH EVERY 12 HOURS 180 tablet 1 10/23/2021 01/22/2024 documented as of this encounter Plan of Treatment Upcoming Encounters Date Type Department Care Team (Late st Contact Info) Description 03/12/2024 12:00 PM CDT Appointment Division of Gastroenterology in [place], [place] 200 [place] [phone] Keshawn Patino P.A.-C. 200 [place] [phone] Carmenza Robertson M.D. 200 [place] [phone] 03/17/2024 3:30 PM CDT Telemedicine Division of Colon and Rectal Surgery in [place], [place] [address] [place] [phone] Keshawn Patino P.A.-C. [address] [place] [phone] 03/24/2024 10:00 AM CDT Telemedicine Department of Medical Genetics in [place], [place] [address] [place] [phone] Minerva Irving M.D. [address] [place] [phone] Scheduled Orders Name Type Priority Associated Diagnoses Orde r Schedule Metanephrines, Fractionated, 24 Hour, Urine Lab Routine Hypertension Essential Primary Paraganglioma (HCC) Once for 1 Occurrences starting 12/30/2023 until 12/30/2023 documented as of this encounter Visit Diagnoses Diagnosis Hypertension Essential Primary Paraganglioma (HCC) documented in this encounter Additional Health Concerns Assessment Noted Time PHQ-9 Depression Total Score: 2 10/25/19 22 2:30 PM WATERPROOF BAG CUTTING MACHINE OPERATOR documented as of this encounter Care Teams Carroter Relationship Specialty Start Date End Date Elsewhere, Pcp PCP - General Family Medicine 05/03/21 documented as of this encounter
--- OUTSIDE RECORDS SUMMARY | 2024-03-11 00:14 | XMS_ITS | Encounter Summary ---
Author Organization [facility] Address [address] [place] [address] Care Team Providers Care Police Surgeon Name Role Phone Elsewhere, Pcp Primary Care Provider Unavailabl e Encounter Details Date Type Department Care Team (Late st Contact Info) Description 12/24/2023 Orders Only Division of Colon and Rectal Surgery in [place], [place] [address] [place] [phone] Keshawn Patino, PDalila-Iván. [address] [place] [phone] Social History Tobacco Use Types Packs/Day Years [...] How often do you attend chur or jew services? More than 4 times per year 12/31/2022 Do you belong to any clubs o r organizations such as jainism groups, unions, fraternal or athletic groups, or [...] Answer Date Recorded PHQ-2 Score 0 10/24/2021 [facility] - Occupational Stress Questionnaire Answer [...] place to sleep or slept in a longterm (including now)? No 12/31/2022 Depression Answer Date [...] CDT Gender Identity Female 07/12/2020 9:37 AM COILER Sexual Orientation Straight 07/12/2020 9: 37 AM COILER documented as of this encounter Plan of Treatment Upcoming Encounters Date Type Department Care Team (Late st Contact Info) Description 03/12/2024 12:00 PM CDT Appointment Division of Gastroenterology in [place], [place] [address] [place] [phone] Keshawn Patino P.A.-C. [address] [place] [phone] Carmenza Robertson M.D. [address] [place] [phone] 03/17/2024 3:30 PM CDT Telemedicine Division of Colon and Rectal Surgery in [place], [place] [address] [place] [phone] Keshawn Patino P.A.-C. [address] [place] [phone] 03/24/2024 10:00 AM CDT Telemedicine Department of Medical Genetics in [place], [place] [address] [place] [phone] Minerva Irving M.D. [address] [place] [phone] documented as of this encounter Visit Diagnoses Not on filedocumented in this encounter Additional Health Concerns Assessment Noted Time PHQ-9 Depression Total Score: 2 10/25/19 22 2:30 PM COILER documented as of this encounter Care Teams Police Surgeon Relationship Specialty Start Date End Date Elsewhere, Pcp PCP - General Family Medicine 05/03/21 documented as of this encounter
--- OUTSIDE RECORDS SUMMARY | 2024-03-11 00:14 | XMS_ITS | Encounter Summary ---
Author Organization [facility] Address [address] [place] [address] Care Team Providers Care Sql Ssrs Developer Name Role Phone Elsewhere, Pcp Primary Care Provider Unavailabl e Encounter Details Date Type Department Care Team (Late st Contact Info) Description 12/22/2023 Clinical Communication Division of Colon and Rectal Surgery in [place], [place] [address] [place] [phone] Keshawn Patino PKarma. [address] [place] [phone] Social History Tobacco Use Types Packs/Day Years Used Date Smoking Tobacco: Never Smokeless Tobacco: Never Alcohol Use Standard Drinks/Week Comments Yes 1 (1 standard drink = 0.6 oz pur e alcohol) Occasional only [facility] Utilities Answer Date Recorded In the past 12 months has [facility] [employer], gas, oil, or water [employer] threatened to shut off services in your [...] How often do you attend chur or baptism services? More than 4 times per year 12/31/2022 Do you belong to any clubs o r organizations such as zoroastrian groups, unions, fraternal or athletic groups, or [...] Answer Date Recorded PHQ-2 Score 0 10/24/2021 [facility] - Occupational [...] Answer Date Recorded Employment status Unemployed/not in [employer] paid workforce and NOT seeking employment 01/19/2024 Housing Stability Answer Date Recorded What is your living situation today? I have a [facility] place to live 01/19/2024 Education Answer Date Recorded What is the highest level of school you have completed or the highest degree you have received? Bachelor's degree (e.g., BA, AB, BS) 06/08/2020 Sex and Gender Information Value Date Recorded Sex Assigned at Female 04/24/2021 2:13 PM CDT Gender Identity Female 07/12/2020 9:37 AM DATA ENTRY MANAGER Sexual Orientation Straight 07/12/2020 9: 37 AM DATA ENTRY MANAGER documented as of this encounter Plan of Treatment Upcoming Encounters Date Type Department Care Team (Late st Contact Info) Description 03/12/2024 12:00 PM CDT Appointment Division of Gastroenterology in [place], [place] [address] [place] [address] [phone] Keshawn Patino P.A.-C. [address] [place] [phone] Carmenza Robertson M.D. [address] [place] [phone] 03/17/2024 3:30 PM CDT Telemedicine Division of Colon and Rectal Surgery in [place], [place] [address] [place] [phone] Keshawn Patino P.A.-C. [address] [place] [phone] 03/24/2024 10:00 AM CDT Telemedicine Department of Medical Genetics in [place], [place] [address] [place] [phone] Minerva Irving M.D. [address] [place] [phone] documented as of this encounter Visit Diagnoses Not on filedocumented in this encounter Additional Health Concerns Assessment Noted Time PHQ-9 Depression Total Score: 2 10/25/19 22 2:30 PM DATA ENTRY MANAGER documented as of this encounter Care Teams Sql Ssrs Developer Relationship Specialty Start Date End Date Elsewhere, Pcp PCP - General Family Medicine 05/03/21 documented as of this encounter
--- OUTSIDE RECORDS SUMMARY | 2024-03-11 00:14 | XMS_ITS | Encounter Summary ---
Author Organization [facility] Address [address] [place] [phone] Care Team Providers Care Special Service Officer Name Role Phone Elsewhere, Pcp Primary Care Provider Unavailabl e Reason for Referral * Outpatient (Routine) - Authorized Specialty Diagnoses / Procedures Referred By Contac t Referred To Contact Minerva Donnelly M.D. [address] [place] [phone] [facility] Referral ID Status Reason Start Date Expiration Date V isits Requested Visits Authorized [id number] Authorized 12/30/2023 06/30/2025 1 1 * Outpatient (Routine) - Authorized Specialty Diagnoses / Procedures Referred By Contac t Referred To Contact Endocrinology Diagnoses Paraganglioma (HCC) Hypertension Essential Primary Minerva Irving M.D. [address] [place] [phone] [facility] Referral ID Status Reason Start Date Expiration Date V isits Requested Visits Authorized [id number] Authorized 12/30/2023 06/30/2025 1 1 Reason for Visit * Outpatient (Routine) - Closed Specialty Diagnoses / Procedures Referred By Contac t Referred To Contact Minerva Donnelly M.D. [address] [place] [phone] [facility] Referral ID Status Reason Start Date Expiration Date Visits Re quested Visits Authorized [id number] Closed 04/10/2021 04/10/2022 1 1 Encounter Details Date Type Department Care Team (Latest Contact Info) Description 12/30/2023 11:00 AM CDT Office Visit Department of Medical Genetics in [place], [place] [address] [place] [phone] Minerva Irving M.D. [address] [place] [phone] Paraganglioma (HCC) (Primary Dx); Hypertension Essential Primary Social History Tobacco Use Types Packs/Day Years [...] How often do you attend chur or yarsanism services? More than 4 times per year 12/31/2022 Do you belong to any clubs o r organizations such as nondenominational groups, unions, fraternal or athletic groups, or [...] Answer Date Recorded PHQ-2 Score 0 10/24/2021 [facility] - [...] CDT Gender Identity Female 07/12/2020 9:37 AM REVERSE UNIT OPERATOR Sexual Orientation Straight 07/12/2020 9: 37 AM REVERSE UNIT OPERATOR documented as of this encounter Last Filed Vital Signs Vital Sign Reading Time Taken Comments Blood Pressure 127/81 12/30/2023 11:06 AM CDT Pulse 63 12/30/2023 11:06 AM CDT Temperature - - Respiratory Rate - - Oxygen Saturation - - Inhaled Oxygen Concentration - - Weight 83.6 kg (184 lb 3.1 oz) 12/30/2023 11:06 AM CDT Height 169.9 cm (5' 6.89) 12/30/2023 11:06 AM C DT Body Mass Index 28.94 12/30/2023 11:06 AM CDT documented in this encounter Consult Notes * Minerva Irving M.D. - 12/30/2023 11:00 AM CDT SUBJECTIVE CHIEF COMPLAINT / REASON FOR CONSULT Lisa Taylor Herson is a delightful 43 y.o. woman who was referred by Dr. 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 Ms. Bains is unaccompanied. HISTORY OF PRESENT ILLNESS History provided by: patient. Additional reports reviewed: historical medical records The following portions of the patient's history were reviewed and updated as appropriate: allergies, current medications, family history, medical history, social history, surgical history, developmental history, history and problem list Lisa Bains returns for follow up in person. She is a nata 43 year old woman, mother of two boys who has a large right sided paraganglioma that was discovered just prior to her last . At the time, she noticed a small bump behind her right ear that was initially thought to be a lymph node. She noted that the mass continued to grow and her ENT in [place] ordered an MRI that confirmed that this was more than a lymph node and was a paraganglioma. Recent imaging here showed this mass extened into the right jugular foramen and hypoglossal canal with a smaller mass that at the rightcarotid bifurcation. Other symptoms include hypertension that was present during and has c ontinued despite being treated with two antihypertensive medications. She underwent subtotal resection by Drs. Serna and Jeff in October 2020. She has improved swallowing, but needs to be careful with meats and has hoarseness. She is followed by Dr. Olmedo for vocal cord weakness and hoarseness. She has been followed by ENT and has not had tumor recurrence. She recently had an abdominal CT to evaluate her diverticulitis. Imaging was reviewed at [facility] and the question of pulmonary fibrosis has been raised. She will have a chest MRI and follow up with pulmonary. Of note, her son has hearing loss in his left ear and is complaining of pulsatile tinnitus. Past testing through [employer] for paragangliomas was performed. No mutations or deletion/duplications were found in MAX, NF1, RET, SDHA, SDHAF2, SDHB, SDHC, SDHD, [id number], VHL, EGLN1, FH, KIF1B and MEN1. Genomic testing of the tumor was performed and was not informative. FAMILY HISTORY Pedigree reviewed and available on the computerized medical record. No other individuals with paraganglioma or related genetic conditions. Her father in his 50s of a heart attack. Her mother at 62 of lung cancer. She has a brother with a history of lipomas. Ms. Bains has two sons, Rashad who is 9 years old and has unilateral hearing loss detected by hearing screening and has a history of constipation. Giuliano is 9 months old and well. She had one early loss. SOCIAL HISTORY Ms. Bains lives outside of [place] and is home with her sons. REVIEW OF SYSTEMS Constitutional: Positive for fatigue and weight gain of more than 10 pounds. Gastrointestinal: Positive for heartburn. Genitourinary: Positive for incontinence and frequent urination. Neurological: Positive for light-headedness, loss of balance or tendency to fall easily and headaches. Psychiatric/Behavioral: Positive for excessive daytime sleepiness/tiredness, feeling down, depressed, or hopeless over past two weeks and feeling nervous, anxious, or on edge in past two weeks. The following systems were negative: Skin, Eyes, ENT, Respiratory, Cardiovascular, Hematologic, Musculoskeletal OBJECTIVE Vitals: 12/30/23 1106 BP: 127/81 Pulse: 63 Weight: 83.6 kg (12/30/2023 11:06 AM) Height: 169.9 cm (12/30/2023 11:06 AM) PHYSICAL EXAM General: well developed and well nourished. Voice is much better than in the past . Head: normocephalic Eyes: pupils equal and reactive Ears: normally formed and set Neck: supple Lungs: clear Cor: soft systolic ejection murmur Neuro: symmetric facies, tongue midline, normal gait Imaging Narrative & Impression EXAM: MR NECK SOFT TISSUE WITHOUT AND WITH IV CONTRAST, MR NECK ANGIOGRAM WITHOUT AND WITH IV CONTRAST COMPARISON: CT soft tissue neck with IV contrast 06/01/2020. FINDINGS: 6.2 cm SI by 4.2 cm AP by 3.2 cm RL hypervascular enhancing mass in the right post styloid parapharyngeal space which displaces the right internal carotid artery anteriorly and medially. The mass demonstrates a fikh-kuu-qazoer appearance on T2-weighted images and extends from just above the carotid bifurcation to the skull base with subtle tumor extension into the right hypoglossal canal best appreciated on series 11, image 170 and into the right jugular foramen best appreciated on series 4 and series 11, images 170-174 and series 5, image 32. No significant intracranial extension. No appreciable associated bone destruction on CT. No appreciable lateral extension to the right mastoid air cells, middle ear or cochlear promontory. No appreciable extension into the petrous carotid canal. In addition, there is an approximately 1.7 cm SI by 1.9 cm AP by 2.1 cm RL lesion with identical imaging characteristics in the right carotid bifurcation which nearly abuts but appears to be separate from the dominant mass. No lesions at the left carotid bifurcation or along the left left vagal nerve. Scattered cervical lymph nodes which are within normal limits for size and morphology. MRA of the cervical vasculature demonstrates significant arteriovenous shunting associated with the right neck masses. Anterior medial displacement of the cervical right internal carotid artery without appreciable vascular narrowing. Persistent right trigeminal artery with reciprocal diminutive vertebral and proximal basilar arteries. The right vertebral artery is dominant. Vertebrobasilar system best appreciated on 2-D usoz-bg-pomwyx imaging as post gadolinium images degraded by venous contamination from arteriovenous shunting. MRA neck otherwise negative. IMPRESSION: 1. 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 2. Small mass at right carotid bifurcation consistent with small carotid body paraganglioma. 3. Persistent right trigeminal artery which supplies much of the distal basilar and posterior cerebral arteries with reciprocal diminutive vertebral and proximal basilar arteries. 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 Bains is a nata woman with a paraganglioma that is multifocal. Genetic was performed through[employer] and was negative. This significantly lowers the risk to her children, however since she hadtwo separate lesions, there is a possibility of mosaicism. Genetic testing of the tumor was requested to determine if there is a variant in the tumor that canbe a putaway driver and suggest mosaicism. Testing identified a number VUS, but none in known paragangliomagenes. Ms. Bains will be evaluated for pulmonary fibrosis in January. Her son has unilateral hearing loss and pulsatile tinnitus. Request primary to make a referral to ENT based on family history of paraganglioma. Will consider additional testing once her son is evaluated and also after her pulmonary evaluation. 3 month follow up requested. Discussed in detail with the patient/family the diagnosis and treatment plan and answered their questions. Patient/family expressed understanding of the content. Educational materials were provided as appropriate. documented in this encounter Plan of Treatment Upcoming Encounters Date Type Department Care Team (Late st Contact Info) Description 03/12/2024 12:00 PM CDT Appointment Division of Gastroenterology in [address] [phone] Keshawn Patino P.A.-C. [address] [place] [phone] Carmenza Robertson M.D. [address] [place] [phone] 03/17/2024 3:30 PM CDT Telemedicine Division of Colon and Rectal Surgery in [address] [phone] Keshawn Patino P.A.-CJanis [address] [place] [phone] 03/24/2024 10:00 AM CDT Telemedicine Department of Medical Genetics in [place], [place] [address] [place] [phone] Minerva Irving M.D. [address] [place] [phone] Scheduled Referrals Name Type Priority Associated Diagnoses Order Schedule Endocrinology - Pituitary / gonad / adrenal disorders consult (clinic) Outpatient Referral Routine Paraganglioma (HCC) Hypertension Essential Primary Expected: 12/30/2023, Expires: 03/31/2025 Clinical Genomics office visit (clinic) Outpatient Referral Routine Expect ed: 03/31/2024, Expires: 03/31/2025 documented as of this encounter Visit Diagnoses Diagnosis Paraganglioma (HCC)- Primary Hypertension Essential Primary documented in this encounter Additional Health Concerns Assessment Noted Time PHQ-9 Depression Total Score: 2 10/25/19 22 2:30 PM REVERSE UNIT OPERATOR documented as of this encounter Care Teams Special Service Officer Relationship Specialty Start Date End Date Elsewhere, Pcp PCP - General Family Medicine 05/03/21 documented as of this encounter
--- OUTSIDE RECORDS SUMMARY | 2024-03-11 00:14 | XMS_ITS | Encounter Summary ---
Author Organization [facility] Address [address] [place] [phone] Care Team Providers Care Land Surveyor Assistant Name Role Phone Elsewhere, Pcp Primary Care Provider Unavailabl e Reason for Visit * Reason Onset Date Comments Pre-visit Testing Orders 12/22/2023 Colonos copy prep Encounter Details Date Type Department Care Team (Latest Contact Info) Description 12/22/2023 Clinical Communication Division of Colon and Rectal Surgery in [place], [place] [address] [place] [phone] Keshawn Patino P.A.-C. [address] [place] [phone] Pre-visit Testing Orders (Colonoscopy prep) Social History Tobacco Use Types Packs/Day Years [...] often do you attend chur ch or christian services? More than 4 times per year 12/31/2022 Do you belong to any clubs o r organizations such as episcopal groups, unions, fraternal or athletic groups, or [...] Answer Date Recorded PHQ-2 Score 0 10/24/2021 [facility] - Occupational [facility] Questionnaire Answer Date [...] slept in a usp (including now)? No 12/31/2022 Depression Answer Date [...] CDT Gender Identity Female 07/12/2020 9:37 AM BROOMMAKER Sexual Orientation Straight 07/12/2020 9: 37 AM BROOMMAKER documented as of this encounter Miscellaneous Notes * Telephone Encounter - Dimple Lozada R.N. - 12/22/2023 3:32 PM CDT Information Discussed Spoke wit Lisa Bains, a 43 y.o. who is scheduled for an upcoming colonoscopy. The patient is requesting a low volume prep, as this is better tolerated for her. She has had taken the low volume prep with success. Lisa does geospatial technologist any issues with constipation. documented in this encounter Plan of Treatment Upcoming Encounters Date Type Department Care Team (Late st Contact Info) Description 03/12/2024 12:00 PM CDT Appointment Division of Gastroenterology in [place], [place] [address] [place] [phone] Keshawn Patino P.A.-C. [address] [place] [phone] Carmenza Robertson M.D. [address] [place] [phone] 03/17/2024 3:30 PM CDT Telemedicine Division of Colon and Rectal Surgery in [place], [place] [address] [place] [phone] Keshawn Patino P.A.-C. [address] [place] [phone] 03/24/2024 10:00 AM CDT Telemedicine Department of Medical Genetics in [place], [place] [address] [place] [phone] Minerva Irving M.D. [address] [place] [phone] documented as of this encounter Visit Diagnoses Not on filedocumented in this encounter Additional Health Concerns Assessment Noted Time PHQ-9 Depression Total Score: 2 10/25/19 22 2:30 PM BROOMMAKER documented as of this encounter Care Teams Land Surveyor Assistant Relationship Specialty Start Date End Date Elsewhere, Pcp PCP - General Family Medicine 05/03/21 documented as of this encounter
--- OUTSIDE RECORDS SUMMARY | 2024-03-11 00:15 | XMS_ITS | Encounter Summary ---
Author Organization [facility] Address [address] [place] [address] Care Team Providers Care Supervisor Floor Assembly Name Role Phone Elsewhere, Pcp Primary Care Provider Unavailabl e Reason for Referral * MRI/CAT/PET Scan (Routine) - Closed Specialty Diagnoses / Procedures Referred By Contgage t Referred To Contact Radiology Diagnoses Fibrosis Pulmonary (HCC) Procedures CT Chest without IV Contrast Zenaida Bender M.B., B.Ch., B.A.O. [facility] Referral ID Status Reason Start Date Expiration Date Visits Re quested Visits Authorized [id number] Closed 12/17/2023 12/16/2024 1 1 Encounter Details Date Type Department Care Team (Late st Contact Info) Description 12/17/2023 Orders Only Division of Pulmonary Medicine in [place], [place] [address] [place] [phone] [facility], Provider Fibrosis Pulmonary (HCC) Social History Tobacco Use Types Packs/Day Years [...] often do you attend chur ch or catholic services? More than 4 times per year 12/31/2022 Do you belong to any clubs o r organizations such as buddhist groups, unions, fraternal or athletic groups, or [...] Answer Date Recorded PHQ-2 Score 0 10/24/2021 [facility] - Occupational [...] slept in a long-term (including now)? No 12/31/2022 Depression Answer Date [...] CDT Gender Identity Female 07/12/2020 9:37 AM ROBOTIC WELDING OPERATOR Sexual Orientation Straight 07/12/2020 9: 37 AM ROBOTIC WELDING OPERATOR documented as of this encounter Plan of Treatment Upcoming Encounters Date Type Department Care Team (Late st Contact Info) Description 03/12/2024 12:00 PM CDT Appointment Division of Gastroenterology in [place], [place] [address] [place] [phone] Keshawn Patino P.A.-C. [address] [place] [phone] Carmenza Robertson M.D. [address] [place] [phone] 03/17/2024 3:30 PM CDT Telemedicine Division of Colon and Rectal Surgery in [place], [place] [address] [place] [phone] Keshawn Patino P.A.-C. [address] [place] [phone] 03/24/2024 10:00 AM CDT Telemedicine Department of Medical Genetics in [place], [place] [address] [place] [address] [phone] Minerva Irving M.D. [address] [place] [address] [phone] documented as of this encounter Results * Pulmonary Function Tests (01/22/2024 9:20 AM CDT) Pathologist [facility] FVC 3.78 L 01/22/2024 3:15 PM CDT [facility] FEV1 2.97 L 01/22/2024 3:15 PM CDT [facility] FEV1/FVC 78.49 % 01/22/2024 3:15 PM CDT [facility] TZF89-48% 2.46 L/s 01/22/2024 3:15 PM CDT [facility] PEF PRE 6.02 L/s 01/22/2024 3:15 PM CDT [facility] PIF PRE 2.79 L/s 01/22/2024 3:15 PM CDT [facility] FEF 50 % FIF 50 PRE 100.53 % 01/22/2024 3:15 PM CDT [facility] FET PRE 9.12 sec 01/22/2024 3:15 PM CDT [facility] DLCO 20.98 ml/(min*mm Hg) 01/22/2024 3:15 PM CDT [facility] DLCOc 21.83 ml/(min*mm Hg) 01/22/2024 3:15 PM CDT [facility] HB 12.20 g(Hb)/dL 01/22/2024 3:15 PM CDT [facility] VA 5.45 L 01/22/2024 3:15 PM CDT [facility] 01/22/2024 9:20 AM CDT Impressions [facility] - 01/22/2024 3:15 PM CDT Within normal limits. Narrative Procedure Note Ramon Hernandez M.D., Ph.D. - 01/22/2024 IMPRESSION: Within normal limits. Zenaida Sheehan, B.Ch., B.A.O. PFT ORDERA [facility] NA * Comprehensive Metabolic Panel (01/22/2024 8:09 AM [...] Zenaida Sheehan, B.Ch., B.A.O. LAB BLOOD ADD-ON [facility] [address] [place] [address], [facility] [address] [place] [address] * (ABNORMAL) CBC with Differential, Blood (01/22/2024 [...] Zenaida Sheehan, B.Ch., B.A.O. LAB BLOOD ADD-ON [facility] [address] [place] [address], [facility] DTL [facility] [address] [place] [address] [facility]PM [facility] [address] [place] [address] * CT Chest without IV Contrast (01/22/2024 [...] the spine. Probable bone islands in the [id number] body and left sixth rib anteriorly. IMPRESSION: Mild air trapping on expiratory imaging compatible with small airwaysdisease. No evidence of interstitial lung disease. Leonie Arroyo M.D., Ph.D. IMG C T PROCEDURES documented in this encounter Visit Diagnoses Diagnosis Fibrosis Pulmonary (HCC) Fibrosis Pulmonary (HCC) documented in this encounter Additional Health Concerns Assessment Noted Time PHQ-9 Depression Total Score: 2 10/25/19 22 2:30 PM ROBOTIC WELDING OPERATOR documented as of this encounter Care Teams Supervisor Floor Assembly Relationship Specialty Start Date End Date Elsewhere, Pcp PCP - General Family Medicine 05/03/21 documented as of this encounter
--- OUTSIDE RECORDS SUMMARY | 2024-03-11 00:15 | XMS_ITS | Encounter Summary ---
Author Organization [facility] Address [address] [place] [address] Care Team Providers Care Chef French Name Role Phone Elsewhere, Pcp Primary Care Provider Unavailabl e Reason for Referral * Outpatient (Routine) - Closed Specialty Diagnoses / Procedures Referred By Leisa henderson Referred To Contact Pulmonary Medicine Diagnoses Other Disorders Of Lung Michelle Suarez M.D. [address] [place] [phone] [facility] Referral ID Status Reason Start Date Expiration Date Visits Re quested Visits Authorized [id number] Closed 12/16/2023 06/16/2025 1 1 Encounter Details Date Type Department Care Team (Late st Contact Info) Description 12/16/2023 [facility] [address] [place] [address] Michelle Suarez M.D. [address] [place] [phone] Other Disorders Of Lung (Primary Dx) Social History Tobacco Use Types [...] How often do you attend chur or holiness services? More than 4 times per year [...] Date Recorded PHQ-2 Score 0 10/24/2021 [facility] - [...] CDT Gender Identity Female 07/12/2020 9:37 AM SPLASH LINE OPERATOR Sexual Orientation Straight 07/12/2020 9: 37 AM SPLASH LINE OPERATOR documented as of this encounter Plan of Treatment Upcoming Encounters Date Type Department Care Team (Late st Contact Info) Description 03/12/2024 12:00 PM CDT Appointment Division of Gastroenterology in [place], [place] [address] [place] [phone] Keshawn Patino P.A.-C. [address] [place] [phone] Carmenza Robertson M.D. [address] [place] [phone] 03/17/2024 3:30 PM CDT Telemedicine Division of Colon and Rectal Surgery in [place], [place] [address] [place] [phone] Keshawn Patino P.A.-C. [address] [place] [phone] 03/24/2024 10:00 AM CDT Telemedicine Department of Medical Genetics in [place], [place] [address] [place] [phone] Minerva Irving M.D. [address] [place] [phone] Scheduled Referrals Name Type Priority Associated Diagnoses Orde r Schedule Pulmonary Medicine Referral Outpatient Referral Routine Other Disorders Of Lung Expected: 12/16/2023 (Approximate), Expires: 03/16/2025 documented as of this encounter Visit Diagnoses Diagnosis Other Disorders Of Lung- Primary documented in this encounter Additional Health Concerns Assessment Noted Time PHQ-9 Depression Total Score: 2 10/25/19 22 2:30 PM SPLASH LINE OPERATOR documented as of this encounter Care Teams Chef French Relationship Specialty Start Date End Date Elsewhere, Pcp PCP - General Family Medicine 05/03/21 documented as of this encounter
--- OUTSIDE RECORDS SUMMARY | 2024-03-11 00:15 | XMS_ITS | Encounter Summary ---
Author Organization [facility] Address [address] [place] [phone] Care Team Providers Care Candy Counter Clerk Name Role Phone Elsewhere, Pcp Primary Care Provider Unavailabl e Reason for Visit * Reason Comments Med Refill Encounter Details Date Type Department Care Team (Late st Contact Info) Description 12/14/2023 Refill Department of Neurology in [place], [place] [address] [place] [phone] Avinash Alas M.D. [address] [place] [phone] Med Refill Social History Tobacco Use Types [...] often do you attend chur ch or bahai services? More than 4 times per year 12/31/2022 Do you belong to any clubs o r organizations such as anabaptism groups, unions, fraternal or athletic groups, or [...] Answer Date Recorded PHQ-2 Score 0 10/24/2021 [facility] - Occupational Stress Questionnaire Answer [...] place to sleep or slept in a [place] facility (including now)? No 12/31/2022 Depression Answer Date [...] CDT Gender Identity Female 07/12/2020 9:37 AM PUBLIC HEALTH ADVISOR Sexual Orientation Straight 07/12/2020 9: 37 AM PUBLIC HEALTH ADVISOR documented as of this encounter Plan of Treatment Upcoming Encounters Date Type Department Care Team (Late st Contact Info) Description 03/12/2024 12:00 PM CDT Appointment Division of Gastroenterology in [place], [place] [address] [place] [phone] Keshawn Patino P.A.-C. [address] [place] [phone] Carmenza Robertson M.D. [address] [place] [phone] 03/17/2024 3:30 PM CDT Telemedicine Division of Colon and Rectal Surgery in [place], [place] [address] [place] [phone] Keshawn Patino P.A.-C. [address] [place] [phone] 03/24/2024 10:00 AM CDT Telemedicine Department of Medical Genetics in [place], [place] [address] [place] [phone] Minerva Irving M.D. [address] [place] [phone] documented as of this encounter Visit Diagnoses Diagnosis Migraine Headache documented in this encounter Additional Health Concerns Assessment Noted Time PHQ-9 Depression Total Score: 2 10/25/19 22 2:30 PM PUBLIC HEALTH ADVISOR documented as of this encounter Care Teams Candy Counter Clerk Relationship Specialty Start Date End Date Elsewhere, Pcp PCP - General Family Medicine 05/03/21 documented as of this encounter
== END 2024-03-11 00:08 | disposition home or self-care (01) ==
LOC: NPINS 00:07
PROVIDERS: PCP Family Medicine; Visit Provider Internal Medicine
DX: E03.9 Hypothyroidism, unspecified (principal)
CPT/HCPCS: 84443

== ENCOUNTER 2024-08-25 10:29 | Outpatient (CLI) | payer OTHER, SELFPAY | END 2024-08-25 10:30 | disposition home or self-care (01) | PROVIDERS: PCP Family Medicine; Visit Provider Registered Nurse | DX: Z01.818 Encounter for other preprocedural examination (principal) | CPT/HCPCS: 80048; 84443 ==

== ENCOUNTER 2024-09-01 17:18 | Inpatient (IN) | payer OTHER, SELFPAY ==
[2024-09-01] VITALS (23 sets, daily range): BP systolic 119–156; BP diastolic 77–103; PULSE 75–94; RESP 16–20; TEMP 36.4–37.3; O2SAT 89–98; BMI 29.0; BMI 28.8
[2024-09-01] MEDS: LACTATED RINGERS 1000 ML 1,000 ML 100 ML IV ×2 (09:21→13:03)
[2024-09-01] MEDS: SODIUM CHLORIDE 0.9 % (FLUSH) 10 ML SYRINGE IVF (09:21)
--- NOTE | 2024-09-01 09:29 | SUR.PREOP ---
HCG refusal form signed in pre op, patient's partner has had vasectomy. Pt denied any concerns of .
[2024-09-01 09:44] LABS: Hemoglobin* 12.9 gm/dL (12.0-16.0)
[2024-09-01] MEDS: CEFAZOLIN 2 GM INJ IVP (11:40)
--- NOTE | 2024-09-01 14:54 | SUR.OPER ---
Family updated at 1428.
--- NOTE | 2024-09-01 15:08 | P.NB_ITS ---
Nerve Block Nerve Block Time Seen by Provider: 11:45 Date Seen: 09/01/24 Type of block requested by surgeon for post-operative analgesia: TAP Time out performed: Yes Verification of patient name: Yes Verification of date of : Yes Site marking: site marked Name of person performing procedure: Remi Continuous monitoring Was continuous monitoring of O2 sat, B/P, air sampling and monitoring, recorded every 15 minutes?: Yes Procedure Checklist: sterile prep, needles and gloves Ultrasound guided. Images saved: Yes Medications given in 5ml increments after negative aspiration: Marcaine %: 0.25 mL: 30 Needle gauge: 20 and Exparel mL: 10 Patient tolerated procedure well: Yes Additional comments: Needle noted between internal oblique and transversus abdominus. Local spread visualized Block Charges Block Charge (with Pro Fee): TAP Bilateral Use of Ultrasound Machine for Block: Yes- US Guidance/pain block
--- NOTE | 2024-09-01 16:15 | SUR.OPER ---
uterus 144g
--- NOTE | 2024-09-01 16:19 | PM.GSPRC ---
Operative Note Date of procedure: 09/01/24 Type of Procedure: 1. Intraoperative consultation during open hysterectomy. 2. Rigid proctoscopy. Procedure Description: I was contacted by OBGYN surgeons to assist in examination of rectum and posterior cul-de-sac for possible injury. During open part of hysterectomy when the uterus and cervix were removed, a piece of fat came out from the posterior cul-de-sac and there was a concern for potential rectal injury. When I entered the operating room the patient was already asleep under general anesthesia with Pfannenstiel incision in place and Jose retractor in the Pfannenstiel incision. Sigmoid and rectum was pulled into the incision and peritoneum overlying the peritoneal reflection of the rectum was not violated. Slightly to the right of peritoneal reflection there was a peritoneal opening with soft tissue space that was in the posterior cul-de-sac. Small amount of dark oozing was seen in this area. The central vaginal cuff was then oversewn with Vicryl suture and the bleeding has stopped. The peritoneum left lateral to the rectum was then incised and this peritoneal incision was carried anteriorly towards the existing peritoneal defect. Fat was seen anterior to the rectum and anterior rectal space appeared to be pristine without bleeding. The blood stained fat appeared to be anterior to this space and to the right of it. The vaginal cuff was then closed by OBGYN surgeons. I then proceeded with rigid proctoscopy. Proctoscope was inserted through the patient's anus and into the rectum and with air inflating the rectum, the rectal mucosa appeared to be healthy with no bloody staining and no injury. This was advanced into the pelvis to 15 cm until the guillotine operator surgeons were able to palpate the location of the proctoscope in the pelvis. No injury to the rectum was noted. I then scrubbed in back into the case because a serosal tear was noted in the distal sigmoid colon. This could have been created by traction when dissecting tissues in the pelvis. This was oversewn with interrupted 3-0 silk sutures. The sigmoid colon lumen was palpated and was patent. Slow oozing was in was seen from the fat in the posterior cul-de-sac and that was oversewn with a [id number] 3-0 Vicryl suture. The peritoneal defect created for exposure on the left side was then closed with a running 3-0 Vicryl suture. At this time I scrubbed out of the case and pretzel packer surgeons continued with the rest of the procedure. Anesthesia: GETA Surgeon: Haezl Hansen MD
--- NOTE | 2024-09-01 17:06 | SUR.OPER ---
Family updated with patients current status and that general doctor came in to inspect the bladderr
--- NOTE | 2024-09-01 17:08 | SUR.OPER ---
Addendum to previous note family updated at 2136
--- NOTE | 2024-09-01 17:37 | P.ANES_ITS ---
Anesthesia Charges Start Date/Time Anesthesia Start Date: 09/01/24 Anesthesia Start Time: 11:28 Stop Date/Time Anesthesia Stop Date: 09/01/24 Anesthesia Stop Time: 17:31 Coding CPT Codes CPT Codes: ANESTH SURG LOWER ABDOMEN - 76154 ([id number]) P2 - PATIENT W/MILD SYST DISEASE, QZ - MAGNETIC RESONANCE TECHNOLOGIST SVC W/O SWITCHBOARD RECEPTIONIST BY
--- NOTE | 2024-09-01 17:37 | W.ANESCHARGE ---
Anesthesia Charges Start Date/Time Anesthesia Start Date: 09/01/24 Anesthesia Start Time: 11:28 Stop Date/Time Anesthesia Stop Date: 09/01/24 Anesthesia Stop Time: 17:31 Coding CPT Codes CPT Codes: ANESTH SURG LOWER ABDOMEN - 35854 ([id number]) P2 - PATIENT W/MILD SYST DISEASE, QZ - SLIP COVER SEWER SVC W/O TRANSITIONAL CARE NURSE BY
[2024-09-01] MEDS: ONDANSETRON 2 MG/ML inj 4 MG IVP (17:53)
[2024-09-01] MEDS: dexAMETHasone 4 MG/ML VIAL IV (17:56)
--- NOTE | 2024-09-01 17:56 | P.GYNPRC_ITS ---
Procedure Note Date of procedure: 09/01/24 Will [facility] bill your pro fee for this procedure?: Yes Pre-op diagnosis: 1. Menometrorrhagia. 2. History of section x2. 3. History of diverticulitis. 4. History of intra-abdominal/pelvic adhesions. Post-op diagnosis: 1. Menometrorrhagia. 2. History of section x2. 3. History of diverticulitis. 4. History of intra-abdominal/pelvic adhesions. 5. Endometriosis. Procedure: 1. Laparoscopy. 2. Bilateral salpingectomies. 3. Extensive lysis of adhesions. 4. Conversion to laparotomy. 5. Total abdominal hysterectomy. 6. Proctoscopy. 7. Diagnostic cystoscopy. Anesthesia: GETA (And TAP block) Complications: None. Surgeon: Linh Mercado MD Parachute Mender: Zenaida Galvan Estimated blood loss (mL): 150 IV fluids (mL): 1,700 Urine Output (mL): 300 Pathology: specimen obtained, sent to pathology (1. Bilateral fallopian tubes. 2. Uterus with attached cervix. ) Condition: stable Disposition: PACU Findings: Extensive intra-abdominal and pelvic adhesions: Omentum to anterior abdominal wall near the umbilicus, left fallopian tube to left pelvic sidewall, bilateral round ligaments to anterior abdominal wall, uterine body and lower uterine segment and cervix densely adherent to anterior abdominal wall, bladder densely adherent to uterine serosa and anterior abdominal wall. Normal-appearing ovaries bilaterally. Two areas that appeared to be burned-out endometriosis in the posterior cul-de-sac midline and left of midline. Procedure Description: After obtaining informed consent, the patient was taken to the operating room where general anesthesia was obtained without difficulty. A TAP block was administered by anesthesia with ultrasound guidance. She was prepared and draped in the normal sterile fashion in the low dorsal lithotomy position. A Lovell catheter was inserted into the bladder and left to gravity drainage. A medium Graves open-sided speculum was introduced into the vagina. The cervix was visualized and grasped along its anterior lip with a single-tooth tenaculum. The uterus was gently sounded. Sound length was found to be 10 cm. The cervix was gently dilated to a #5 dilator. I then placed a large VCare uterine manip ulator. The tenaculum and speculum were removed. The green VCare cup was digitally pressed up against the cervix and then cinched in place with the blue accessory cup. I then changed gloves and my attention was turned to the abdomen. The inferior aspect of the umbilical fold elevated with two Allis clamps. A 6 mm vertical incision was then made within the umbilical fold using a scalpel. A direct entry technique was used to place a 5 mm laparoscopic port with CO2 gas set to a 5 mmHg. The trocar was removed leaving the sleeve in place. The CO2 gas flow was turned to high flow to achieve pneumoperitoneum. The 5 mm laparoscope was used then to carefully inspect the abdomen and pelvis with findings noted above. Pictures were taken for documentation purposes. The patient was placed in Trendelenburg positioning. Two additional ports were placed in the right (11 mm) and left (5 mm) lower quadrants under direct visualization. The laparoscope was inserted through both of the lower ports to more fully visualize the adhesions to the anterior abdominal wall. The patient was placed in Trendelenburg positioning. The uterus was so densely adherent to the anterior abdominal wall that the VCare manipulator was initially ineffective to elevate the uterus. The right ureter was identified visualized in the right pelvic sidewall. The left ureter was nonvisualized. The VCare cup was visualized and palpated posteriorly but not anteriorly due to the dense adhesions. An atraumatic graspers was used to gently push the bowels from the pelvis. The LigaSure was used to take down the omental adhesions to the anterior abdominal wall. Excellent hemostasis was obtained. The left fallopian tube was identified, and adhesive attachments between the tube and the left pelvic sidewall were taken down with the LigaSure. There was also a filmy adhesion noted between the left ovary and the sigmoid colon epiploic fat, which was taken down sharply. The left fallopian tube was then elevated with the graspers and the LigaSure device was used to dissect the tube from its ovarian and broad ligament attachments, and then it was dissected from the left uterine cornua and removed through a laparoscopic port. Excellent hemostasis was visualized. The right fallopian tube was also elevated, and the LigaSure device used to dissect the right tube from its ovarian and broad ligament attachments, and then it was transected from the right uterine cornua and removed through a laparoscopic port. Excellent hemostasis was visualized. The right round ligament was identified, and adhesive attachments between the right round ligament and anterior abdominal wall were taken down with the LigaSure device. The right round ligament was sealed in a wide swath and transected with the LigaSure. The posterior aspect of the broad ligament on the right side was opened and the right ovarian ligament sealed in a wide swath and transected with the Halo. The peritoneal dissection was continued posteriorly along the cervix from the right side within confines of the VCare cup to the midline. Cephalad pressure was maintained on the uterine manipulator during the dissection. Because of the dense adhesions involving the anterior aspect of the uterine body, and because it could not be determined where the bladder was within those adhesions, attention was then turned to the left side. The left round ligament was isolated, sealed in a wide swath and transected with the LigaSure. The left ovarian ligament was sealed in a wide swath with the LigaSure and transected. Excellent hemostasis was observed. The broad ligament was opened posteriorly along the cervix from the left side within the confines of the VCare cup. The anterior aspect of the broad ligament was opened where it could be ascertained that the bladder was not present, and the left uterine vessels skeletonized. The left uterine vessels were then sealed in a wide swath with the Halo and transected. The bladder was then backfilled with 250 mL sterile milk. A combination of blunt and sharp dissection as well as dissection using the LigaSure was continued anteriorly close to the uterus in order to try to develop a plane between the uterine serosa and the bladder. This procedure was painstakingly slow, due to the dense adhesions which distorted the normal anatomy. We were able to identify the right uterine vessels, which were sealed in a wide swath with the Halo and transected. Ultimately, we got to a point where further adhesiolysis was not possible without endangering the bladder. The decision was made to proceed with laparotomy. The patient was flattened out. All laparoscopic instruments were removed. The bladder was drained of sterile milk and urine. The uterine manipulator was removed. I changed my gloves and my attention was once again turned to the abdomen. A Pfannenstiel skin incision was made with a scalpel. This incision was carried down to the underlying layer of fascia with the Bovie. The fascia was incised in the midline and the incision extended laterally. The superior and inferior aspects of the fascial incision were grasped with Crys clamps and the underlying rectus muscles dissected off sharply. The rectus muscles were in the midline. The underlying peritoneum was identified and entered bluntly. The peritoneal incision was extended superiorly and inferiorly with good visualization of the bladder, which had to be further dissected from the peritoneum and rectus muscles. The patient was placed in some mild Trendelenburg positioning. The bowels were packed cephalad using a large moistened laparotomy sponge. The Jose O retractor was placed in the incision. This provided excellent visualization. The uterus was grasped on both sides with Gerson clamps. The bladder was again backfilled with sterile milk. The bladder was sharply dissected from the uterine serosa close to the uterus, so close that the uterine cavity was actually entered at one point. Eventually, the bladder was completely dissected free and pushed caudally off of the cervix. The remaining cardinal and uterosacral ligament attachments on both sides were clamped with straight Esther clamps adjacent to the lower uterine segment and cervix, transected and suture ligated with 0 Vicryl. Excellent hemostasis was obtained. Two Esther clamps were placed across the vaginal cuff angles. The uterus with attached cervix was then transected and passed off the field. When the uterus was removed, there was a small piece of fat-containing peritoneum from the posterior cul-de-sac that tore off with the cervix. Dr. Galvan went below and performed a digital rectal examination while I palpated the peritoneal defect. The rectal mucosa appeared intact. I then consulted Dr. Hansen of general surgery to scrub in and inspect the defect to determine whether not there was a rectal or sigmoid colon injury. Please see her note for further details. She performed proctoscopy and closed the posterior cul-de-sac peritoneum as well as oversewed a tiny serosal tear in the sigmoid colon. The vaginal cuff angles were fixed with Esther stitches of 0 Vicryl. The intervening vaginal cuff was closed with [id number] sutures of 0 Vicryl. Fluorescein was administered intravenously by Anesthesia. Cystoscopy was performed using sterile normal saline as distending medium. The bladder was carefully inspected and noted to be free of filling defects or suture material. Both ureteral orifices were easily visualized and fluorescein tinged urine jets were noted from both sides. The cystoscope was then removed. The Lovell catheter was replaced into the bladder. I inspected the vaginal cuff using a medium Graves speculum, as there appeared to be some slight oozing of blood. No active bleeding was noted. Speculum was removed. I then once again changed gloves and my attention was turned to the abdomen. The abdomen and pelvis were then copiously irrigated. Small bleeding vessels were isolated with DeBakey clamps and cauterized for hemostasis. All laparotomy sponges and instruments were then removed. The subfascial tissues were carefully inspected and hemostasis assured. The 11 mm fascial defect in the right lower quadrant was identified and reapproximated in a running fashion with 0 Vicryl. The fascia of the Pfannenstiel incision was reapproximated in a running fashion with a looped 0 Maxon suture. The subcutaneous tissues were copiously irrigated and hemostasis assured. The subcutaneous adipose layer was reapproximated with interrupted sutures of 3-0 plain gut. The skin was closed in a subcuticular fashion with 4-0 Vicryl at all three laparoscopic port sites and the laparotomy incision. Surgical glue was applied to the laparoscopic port sites and dressings were applied. The patient tolerated the procedure well. Sponge, lap, needle, instrument counts were reported as correct x2. The patient was taken to recovery room awake and in stable condition. She received 2 g of IV Ancef preoperatively and an additional 1 g of Ancef during the case. This case needs a 22 modifier for difficulty.
[2024-09-01] MEDS: diphenhydrAMINE 50 MG/ML inj 25 MG IVP (17:58)
[2024-09-01] MEDS: LACTATED RINGERS 500 ML 500 ML 30 ML IV (18:00)
--- NOTE | 2024-09-01 19:43 | PC.NURSE ---
shift note: Dr. Holland contacted via phone due to pt's increased nausea. Orders to give IV compazine x1, scopolamine patch, tele for 24 hours and increase LR rate to 75cc/hr.
[2024-09-01] MEDS: SCOPOLAMINE 1 MG/3 DAY PATCH 1 PATCH TRANSDERMA (20:22)
[2024-09-01] MEDS: PROCHLORPERAZINE 5 MG/ML VIAL IV (20:22)
[2024-09-01] MEDS: KETOROLAC 30 MG/ML inj IVP (22:41)
[2024-09-02] VITALS (8 sets, daily range): BP systolic 106–154; BP diastolic 65–97; PULSE 74–88; RESP 16–18; TEMP 36.6–36.7; O2SAT 94–97
[2024-09-02] MEDS: LACTATED RINGERS 1000 ML 1,000 ML 75 ML IV (01:28)
[2024-09-02] MEDS: ACETAMINOPHEN 500 MG TABLET 1000 MG PO ×3 (01:28→14:18)
[2024-09-02] MEDS: KETOROLAC 30 MG/ML inj IVP ×3 (04:41→18:04)
[2024-09-02] MEDS: LEVOTHYROXINE 125 MCG TABLET PO (06:12)
[2024-09-02 06:58] LABS: Hemoglobin* 10.2 gm/dL (12.0-16.0)
--- NOTE | 2024-09-02 07:00 | PC.NURSE ---
: pt to the floor from PACU at 1836. Pt reported feeling very nauseous & in 05/27 pain, received new orders for Scopolamine patch, Compazine, tele, and IVF. Nausea subsided. Pt rates abd pain 01/25, declined taking any opioids d/t hx of severe migraines w/ opioid use, pt stated she would rather have severe abd pain than have to experience a the migraine she had experienced in the past, pt requests to stay on top of Tylenol and ibuprofen. Lap sites intact, abd incision dressing CDI, no vaginal bleeding noted. Bowel tones active, pt states she is passing gas. Lovell patent and draining, initially clear yellow urine, at end of shift, cloudy yellow urine. Pt declined getting out of bed, advertising copy writer assisting with reposition changes.
[2024-09-02 07:06] LABS: Creatinine* 0.8 mg/dL (0.5-1.5); Est. Creatinine Clearance* 85.76; Estimated Glomerular Filt Rate 94 ml/min
--- NOTE | 2024-09-02 09:20 | PM.GYNPNPO ---
TEAM COORDINATOR - A/P Postoperative Procedures: Procedures Operation Date: 09/01/24 10:20 Actual Procedure Side Surgeon p Laparoscopy, Bilateral Salpingectomy, Conversion to Total Abdominal Hysterectomy, Lysis of Adhesions, Diagnostic Cystoscopy, Proctoscopy Linh Mercado MD Postoperative day: 1 Postoperative status: doing well Postoperative plan: routine post-op care Time Spent With Patient Time: Total time spent is greater than 50% in coordination of care (as documented) at patient's floor/unit and/or counseling patient: Time with patient: 25 - 35 minutes TEAM COORDINATOR- PN:Subj Post-Op Subjective Time Seen by Provider: 09:00 Date Seen: 09/02/24 Post Operative Details: Post-operative day number 1: status post Laparoscopy, conversion to laparotomy, total abdominal hysterectomy, bilateral salpingectomies, extensive lysis of adhesions, proctoscopy and diagnostic cystoscopy. Currently using Toradol and acetaminophen for pain. Would like to avoid narcotics if possible. Passing flatus this morning. Lovell catheter still in place as she is not yet ambulatory. Denies nausea/vomiting. Tolerating clear liquid diet. TEAM COORDINATOR-PN: Obj Exam Physical Exam: Vital signs: Temp Pulse Resp BP Pulse Ox O2 Del Method 98.1 F 88 16 132/80 97 Room Air 09/02/24 08:04 09/02/24 08:04 09/02/24 08:04 09/02/24 08:04 09/02/24 08:04 09/02/24 08:04 Constitutional: Constitutional: no acute distress Routine HEENT Exam: Head: Present normal inspection Routine Respiratory Exam: Respiratory: Present CTA bilaterally Routine Cardiovascular Exam: Cardiovascular: Present RRR Routine Abdominal Exam: Abdominal: Present distended (mildly), soft and tenderness (mildly appropriately tender) Comments: Incisions (3 port sites and Pfannenstiel) clean, dry, intact, some ecchymoses adjacent to Pfannenstiel incision Routine Extremities Exam: Extremities: Present normal inspection; Absent tenderness Routine Psychiatric Exam: Psychiatric: Present normal affect TEAM COORDINATOR - PN: Obj Data Labs Labs: Laboratory Results - last 24 hr 09/01/24 09/02/24 09:30 06:20 Hgb 12.9 10.2 L Creatinine 0.8 Estimated Creat Clear 85.76 Estimated GFR 94 Blood Type A Positive Antibody Screen NEGATIVE
[2024-09-02] MEDS: SERTRALINE 100 MG TABLET 150 MG PO (09:28)
[2024-09-02] MEDS: AMLODIPINE 10 MG TABLET PO (09:28)
[2024-09-02] MEDS: buPROPion XL 150 MG TABLET 300 MG PO (09:28)
--- NOTE | 2024-09-02 19:36 | PC.NURSE ---
Nursing Care Hours: 4511-3254 Pt this shift calm and cooperative, alert and oriented. Pain rated 7-8/10 in morning. Treated with tylenol and toradol IV, pain decreased and remained about 5/10 most of shift. Up with assist standing at edge of bed in the morning. Allowed to rest during day. Up to chair for dinner. 1800 removed vargas and SL IV. encouraged to drink. Pt unsteady on feet and so is SB assist. BS active and pt passing gas. Denies nausea. IV to R hand tender with flushes. New IV placed in R FA.
[2024-09-03 00:14] VITALS: BP 114/69; PULSE 75; RESP 16; TEMP 37.1; O2SAT 95
[2024-09-03] MEDS: KETOROLAC 30 MG/ML inj IVP (00:15)
[2024-09-03 03:43] VITALS: BP 112/59; PULSE 79; RESP 16; TEMP 37.1; O2SAT 96
[2024-09-03] MEDS: ACETAMINOPHEN 500 MG TABLET 1000 MG PO ×3 (03:44→16:33)
[2024-09-03] MEDS: IBUPROFEN 600 MG TABLET PO ×2 (05:55→14:02)
[2024-09-03] MEDS: LEVOTHYROXINE 125 MCG TABLET PO (05:58)
[2024-09-03 08:16] VITALS: BP 102/66; PULSE 67; RESP 16; TEMP 36.6; O2SAT 95
[2024-09-03] MEDS: SERTRALINE 100 MG TABLET 150 MG PO (08:18)
[2024-09-03] MEDS: AMLODIPINE 10 MG TABLET PO (08:18)
[2024-09-03] MEDS: buPROPion XL 150 MG TABLET 300 MG PO (08:18)
--- NOTE | 2024-09-03 08:29 | PC.NURSE ---
Pt alert and oriented x3. Afebrile. Pt is passing gas and bowel sounds are active. Pt reports 6/10 abdominal pain, pain managed with scheduled medications. Pt has x2 lap sites and a horizontal incision that are CDI. Pt is up ind, voiding, and tolerating a regular diet.
--- NOTE | 2024-09-03 09:50 | PM.GYNPNPO ---
POT PRESS OPERATOR - A/P Assessment and plan (1) Status post abdominal hysterectomy: Problem details: Laparoscopy, conversion to laparotomy, total abdominal hysterectomy, bilateral salpingectomies, extensive lysis of adhesions, proctoscopy and diagnostic cystoscopy. Status: Acute Postoperative Procedures: Procedures Operation Date: 09/01/24 10:20 Actual Procedure Side Surgeon p Laparoscopy, Bilateral Salpingectomy, Conversion to Total Abdominal Hysterectomy, Lysis of Adhesions, Diagnostic Cystoscopy, Proctoscopy Linh Mercado MD Postoperative day: 2 Postoperative status: doing well Postoperative plan: routine post-op care (Reassess for discharge later this afternoon or this evening.) Time Spent With Patient Time: Total time spent is greater than 50% in coordination of care (as documented) at patient's floor/unit and/or counseling patient: Time with patient: less than 15 minutes POT PRESS OPERATOR- PN:Subj Post-Op Subjective Time Seen by Provider: 08:40 Date Seen: 09/03/24 Post Operative Details: Post-operative day number 2: status post status post Laparoscopy, conversion to laparotomy, total abdominal hysterectomy, bilateral salpingectomies, extensive lysis of adhesions, proctoscopy and diagnostic cystoscopy. She feels much better today. The Lovell catheter came out the last evening. She has ambulated to the bathroom twice and urinated without difficulty. She continues to pass flatus. She is tolerating regular diet. Her pain control is adequate. POT PRESS OPERATOR-PN: Obj Exam Physical Exam: Vital signs: Temp Pulse Resp BP Pulse Ox O2 Del Method 97.8 F 67 16 102/66 95 Room Air 09/03/24 08:16 09/03/24 08:16 09/03/24 08:16 09/03/24 08:16 09/03/24 08:16 09/03/24 08:16 Constitutional: Constitutional: no acute distress Routine Abdominal Exam: Abdominal: Present distended (mildly), soft and tenderness (mildly appropriately tender) Comments: Incisions (3 port sites and Pfannenstiel) clean, dry, intact, some ecchymoses adjacent to Pfannenstiel incision Routine Extremities Exam: Extremities: Present normal inspection; Absent tenderness Routine Psychiatric Exam: Psychiatric: Present normal affect Urinary Catheter Management: Urethral: Cath placed during this visit: no Urethral indwelling: No
--- NOTE | 2024-09-03 11:07 | P.GYNPRC_ITS ---
Procedure Note Date of procedure: 09/03/24 Will [facility] bill your pro fee for this procedure?: Yes Pre-op diagnosis: 1. day #2 s/p vaginal delivery. 2. Undesired fertility. Post-op diagnosis: 1. day #2 s/p vaginal delivery. 2. Undesired fertility. Procedure: bilateral salpingectomies. Anesthesia: MAC and spinal Complications: None. Surgeon: Linh Mercado MD Estimated blood loss (mL): 5 Pathology: specimen obtained, sent to pathology (Bilateral fallopian tubes) Condition: stable Disposition: floor Findings: Normal appearing fallopian tubes bilaterally. Procedure Description: After obtaining informed consent, the patient was taken the operating room where spinal and MAC anesthesia was obtained without difficulty. She was prepared and draped in the normal, sterile fashion in the dorsal supine position. The inferior aspect of the umbilical fold was tented up with two Allis clamps, and a 2 cm transverse incision was made with the scalpel. The incision was carried down to the fascia bluntly with a Kika clamp. The fascia was identified, grasped with two Crys clamps, and elevated. The fascia was incised between the Crys clamps with Vale scissors. This incision was extended to 2 cm sharply. The underlying peritoneum was entered bluntly with a finger. A small Jose retractor was placed into the defect. Bowels were gently pushed cephalad using a moistened laparotomy sponge. The patient was rotated to the right. The left fallopian tube was identified, grasped with a Nelli clamp, and elevated. At this point, the patient began coughing, and the fallopian tube started to tear at the cornua. I had to let go of the tube until the SYSTEM VALIDATION ENGINEER addressed her secretions. Once the patient was still again, I regrasped the left fallopian tube with a [place] clamp, and with a second Nelli, walked the tube out to its fimbrial end. The hand-held LigaSure device was then used to seal and transect the mesosalpinx and broad ligament attachments to the level of cornua, where the tube was sealed in a wide swath and fully excised and passed off the field. There was a little bit of oozing of the peritoneum along the excision base, which was isolated using a Amarillo clamp and cauterized. Hemostasis was visualized. The patient was tilted to her left side. The right fallopian tube was identified, grasped with the Amarillo clamp and elevated. A second Amarillo clamp was used to walk the tube out to the fimbrial end of the tube. Right fallopian tube was then excised in a similar fashion using the LigaSure. Excellent hemostasis was obtained. The patient was flattened out. No active bleeding was noted. The Jose over retractor was removed. The fascial edges were identified, and the fascia reapproximated in a running fashion with a 0 Vicryl suture. The subcutaneous tissues were inspected and hemostasis obtained where needed with electrocautery. The skin was closed in subcuticular fashion with 4-0 Vicryl. Surgical glue and dressing were applied. The patient tolerated the procedure well. Sponge, lap, needle, and instrument counts were reported as correct x2. The patient was taken to the recovery room awake, and in stable condition. She received 30 mg of IV Toradol at the conclusion of the procedure.
[2024-09-03 13:09] VITALS: BP 110/70; PULSE 79; RESP 18; TEMP 37; O2SAT 96
--- NOTE | 2024-09-03 14:36 | P.DS_ITS ---
DS: Providers Provider Date Seen: 09/03/24 Date of admission: 09/01/24 17:18 Primary care physician: Michelle Suarez MD Admitting Clinician: Linh Mercado MD Attending Physician on discharge: Linh Mercado MD Date of Discharge: 09/03/24 DS: Diagnosis Discharge Diagnosis (1) Status post abdominal hysterectomy: Status: Acute Problem details: Laparoscopy, conversion to laparotomy, total abdominal hysterectomy, bilateral salpingectomies, extensive lysis of adhesions, proctoscopy and diagnostic cystoscopy. WET PROCESS HEAD MILLER-Discharge Summary Hospital Course Hospital Course Narrative: Patient is a 44 year old admitted on 09/01/2024 for surgical management of alex metrorrhagia. Indication for surgery: Menometrorrhagia. Intraoperative findings were notable for extensive intra-abdominal and pelvic adhesions as well as endometriosis. Initially, laparoscopic surgery was planned. She underwent laparoscopy with bilateral salpingectomies and extensive lysis of adhesions. Ultimately, because of the extensive dense adhesions, conversion to open laparotomy was required, with total abdominal hysterectomy, proctoscopy, and diagnostic cystoscopy. Postoperative course has been uneventful. Vitals have been stable. She has remained afebrile. Today, on postoperative day 2, she reports the pain is well controlled. She has been able to ambulate Without difficulty. She is tolerating regular diet. She is passing flatus. Lovell catheter has been removed, and she is voiding without difficulty. Time Spent with Patient Time attestation: Total time spent providing and/or coordinating discharge services: Time spent: Less than 30 minutes WET PROCESS HEAD MILLER - Exam Physical Exam: Vital signs: Temp Pulse Resp BP Pulse Ox O2 Del Method 98.6 F 79 18 110/70 96 Room Air 09/03/24 13:09 09/03/24 13:09 09/03/24 13:09 09/03/24 13:09 09/03/24 13:09 09/03/24 13:09 Constitutional: Constitutional: no acute distress Routine HEENT Exam: Head: Present normal inspection Routine Neck Exam: NECK: Present supple Routine Respiratory Exam: Respiratory: Present CTA bilaterally; Absent crackles, rhonchi or wheezes Routine Cardiovascular Exam: Cardiovascular: Present RRR; Absent murmur Routine Abdominal Exam: Abdominal: Present normal bowel sounds and soft; Absent distended or tenderness Comments: Three laparoscopic port site incisions and Pfannenstiel incision all intact, without erythema or induration. Routine Extremities Exam: Extremities: Present normal inspection; Absent calf tenderness or pedal edema Routine Psychiatric Exam: Psychiatric: Present normal affect WET PROCESS HEAD MILLER - DS: Data Data Completed and Pending Labs on day of discharge: Postop hemoglobin on 09/02/2024 was 10.2. Procedures Procedures: Procedures Operation Date: 09/01/24 10:20 Actual Procedure Side Surgeon p Laparoscopy, Bilateral Salpingectomy, Conversion to Total Abdominal Hysterectomy, Lysis of Adhesions, Diagnostic Cystoscopy, Proctoscopy Linh Mercado MD Complications: none Discharge Plan Discharge Disposition: Home, Self-Care Date of Admission: 09/01/24 17:18 Attending Provider on Discharge: Linh Mercado Primary Care Provider: Michelle Suarez Condition: Stable Anticipated Discharge Date/Time: 09/03/24 14:41 Discharge Medications: New ibuprofen 600 mg Tablet 600 mg PO Q6H Qty: 30 0RF docusate sodium [Colace] 100 mg capsule 100 mg PO DAILY Qty: 30 0RF Continued Vitron-C 65 mg iron- 125 mg tablet,delayed release (DR/EC) 1 tab PO QDAY PRN Rx Instructions: May use [id number] medication if not paid by insurance dextroamphetamine-amphetamine [Adderall] 15 mg tablet 15 mg PO BID Qty: 60 0RF Rx Instructions: administer doses at least 4-6 hours apart amlodipine 10 mg tablet 10 mg PO QDAY Qty: 90 3RF propranolol 60 mg capsule,extended release 24 hr 60 mg PO QDAY naltrexone 50 mg tablet 25 mg PO QDAY multivitamin [Daily Multi-Vitamin] Tablet 1 tab PO QDAY levothyroxine 112 mcg capsule 125 mcg PO QDAY sertraline 100 mg tablet 150 mg PO QDAY Qty: 145 3RF rizatriptan 10 mg tablet,disintegrating 10 mg PO DIRECTED PRN Patient Comments: TAKE 1 TABLET NEEDED FOR MIGRAINE, REPEAT ONCE IN 2 HRS IF UNRESOLVED. DONT EXCEED 30MG/24HRS Ubrelvy 100 mg tablet 100 mg PO DIRECTED PRN bupropion HCl 300 mg tablet extended release 24 hr 300 mg PO DAILY Sutab 1.479-0.188- 0.225 gram tablet See Rx Instructions PO PER PKG DIR Qty: 24 0RF Rx Instructions: PO PER PKG DIR Discharge Orders: Discharge Order (Routine); Ordered 09/03/24 Ordered By: Linh Mercado Patient Education: Hysterectomy (DC) Additional Instructions: Discharge instructions were reviewed with the patient including signs and symptoms of infection and medications to use for pain.? ? No lifting greater than 20 pounds for 6 weeks. Nothing per vagina for 6 weeks. Off work or school for 6 weeks. ? Follow up with your surgeon in 2 weeks for incision check and 6 weeks for a postoperative visit or sooner as needed. Activity Level: Activity as Tolerated Discharge Diet: Regular Follow Up Appointments: Michelle Suarez MD [Primary Care Provider] - Forms: [employer] Info Instructions
--- NOTE | 2024-09-03 20:26 | PC.NURSE ---
Discharge-- Very pleasant and cooperative patient discharged to home via wheelchair with spouse and children. Pain appears well managed with Tylenol and Motrin. Discharge education was provided including diagnosis info, symptoms to report, medications and follow up plan. All questions answered. SL was removed with tip intact.
== END 2024-09-03 16:30 | disposition home or self-care (01) | DRG 743 ==
LOC: OR 19:09 → MEDSURG 19:09
PROVIDERS: Admitting Provider Obstetrics & Gynecology; PCP Family Medicine; Visit Provider Obstetrics & Gynecology
PROC: 0UT94ZZ Resection of Uterus, Percutaneous Endoscopic Approach (ICD-10-PCS; principal; 2024-09-01 10:00)
DX: N92.1 Excessive and frequent menstruation with irregular cycle (principal); N73.6 Female pelvic peritoneal adhesions (postinfective); N80.329 Endometriosis of the posterior cul-de-sac, unspecified depth; G89.18 Other acute postprocedural pain; Z53.31 Laparoscopic surgical procedure converted to open procedure; Z98.891 History of uterine scar from previous surgery; F98.8 Other specified behavioral and emotional disorders with onset usually occurring in childhood and adolescence; D50.9 Iron deficiency anemia, unspecified; F32.A Depression, unspecified; F41.9 Anxiety disorder, unspecified; E03.9 Hypothyroidism, unspecified; I10 Essential (primary) hypertension
CPT/HCPCS: 00840; 36415; 64488; 76942; 81025; 82565; 85018; 86850; 86900; 86901; 88307; A4314; A9270; J0330; J0665; J0666; J0690; J0780; J1100; J1200; J1885; J2250; J2371; J2405; J2704; J3010; J3475; J3490; J7120

== ENCOUNTER 2024-09-10 10:59 | Outpatient (CLI) | payer OTHER, SELFPAY | END 2024-09-10 11:00 | disposition home or self-care (01) | LOC: LKVREF 11:00 | PROVIDERS: PCP Family Medicine; Visit Provider Obstetrics & Gynecology | DX: R82.90 Unspecified abnormal findings in urine (principal) | CPT/HCPCS: 87086 ==